=== PATIENT | female | born 1950 | race Caucasian/White ===

== ENCOUNTER 2023-05-07 15:42 | Outpatient (CLI) | payer MEDICARE, SELFPAY ==
--- NOTE | 2023-05-07 | ECHO_ITS ---
Patient Info Name: Yuliya Harris Age: 73 years : 1950 Gender: Female Ht: 68 in Wt: 120 lbs BSA: 1.60 m2 HR: 81 bpm BP: 157 / 100 mmHg Heart Rhythm: Sinus Rhythm Technical Quality: Good Exam Date: 05/07/2023 4:05 PM Exam Location: Echo Lab Patient Status: Outpatient Admit Date: 05/07/2023 Staff Ordering Physician: ManjeetBelia PA-C [employer]atch Mixing Truck Driver: Cheyanne Levin RDCS Attending Provider: BlancheBelia PA-C Exam Type: CA echo doppler color flow Study Info Indications - CARDIAC MURMUR Complete two-dimensional, color flow and Doppler transthoracic echocardiogram is performed. Summary 1. Complete two-dimensional, color flow and Doppler transthoracic echocardiogram is performed. 2. Left ventricular chamber dimension is normal. 3. Left ventricular systolic function is normal, estimated at 60-65%. 4. There is mildly increased left ventricular wall thickness. 5. The left ventricular diastolic function is grade I diastolic dysfunction. 6. Right ventricular systolic function is normal. 7. Right atrial free wall invagination noted during systole on the apical four chamber views and subxiphoid views. 8. There is moderate aortic valve calcification. 9. There is mild to moderate aortic valve stenosis with a peak velocity of 228 cm/s, mean gradient of 14 mmHg, and aortic valve area of 1.3 cm2. 10. There is mild mitral valve regurgitation. 11. There is mild tricuspid valve regurgitation. 12. Estimated pulmonary arterial systolic pressure is 40 mmHg. 13. There is no pericardial effusion. Left Ventricle Left ventricular chamber dimension is normal. Left ventricular systolic function is normal, estimated at 60-65%. There is mildly increased left ventricular wall thickness. The left ventricular diastolic function is grade I diastolic dysfunction. Right Ventricle Right ventricular chamber dimension is normal. Right ventricular systolic function is normal. Left Atria Left atrial chamber dimension is normal. Right Atria Right atrial free wall invagination noted during systole on the apical four chamber views and subxiphoid views. Right atrial chamber dimension is normal. Atrial Septum Intact interatrial septum visualized by color flow imaging. Aortic Valve The aortic valve is probable trileaflet. There is mild to moderate aortic valve stenosis with a peak velocity of 228 cm/s, mean gradient of 14 mmHg, and aortic valve area of 1.3 cm2. There is no aortic valve regurgitation. There is moderate aortic valve calcification. Pulmonic Valve The pulmonic valve is not well visualized. Mitral Valve There is mild mitral valve regurgitation. Tricuspid Valve There is mild tricuspid valve regurgitation. Estimated pulmonary arterial systolic pressure is 40 mmHg. Pericardium/Pleural There is no pericardial effusion. Inferior Vena Cava Dilated inferior vena cava with <50% collapse upon inspiration consistent with elevated right atrial pressure, 15 mmHg. Aorta The aortic root size at the sinus of Valsalva is normal. Left Ventricular Outflow Tract Name Value Normal LVOT 2D LVOT Diameter 2.2 cm LVOT Doppler LVOT Peak Gradient 2 mmHg LVOT Mean Gradient 1 mmHg
== END 2023-05-07 15:43 | disposition home or self-care (01) ==
LOC: ANHCARD 15:50
PROVIDERS: PCP Physician Assistant; Visit Provider Physician Assistant
DX: R93.1 Abnormal findings on diagnostic imaging of heart and coronary circulation (principal); I70.0 Atherosclerosis of aorta; I35.0 Nonrheumatic aortic (valve) stenosis; I34.0 Nonrheumatic mitral (valve) insufficiency; I07.1 Rheumatic tricuspid insufficiency
CPT/HCPCS: 93306

== ENCOUNTER 2023-05-10 08:21 | Outpatient (CLI) | payer MEDICARE, SELFPAY ==
--- NOTE | ~2023-05-10 | US_ITS ---
EXAMINATION: US carotid duplex BI DATE: 05/10/2023 09:40 INDICATION: Carotid atherosclerosis on prior CT. Nicotine dependence. Cardiac murmur. TECHNIQUE: Grayscale, color Doppler, and pulsed Doppler images of the cervical carotid arteries were obtained. The degree of vessel stenosis is placed in one of the following categories: normal, <50%, 5 0-69%, >=70% but less than near-occlusion, near-occlusion, or total occlusion. Note that percent sten osis relative to normal distal artery lumen diameter is indirectly measured from velocity measurement s as described by Chance, et al. Radiology 2003; 229:340-346. COMPARISON: None. FINDINGS: RIGHT: The right common carotid artery (CCA) peak systolic velocity (PSV) is 55 cm/s. The right internal car otid artery (ICA) PSV is 56 cm/s. The right ICA end-diastolic velocity (EDV) is 16 cm/s. The right IC A/CCA PSV ratio is 1.0. Grayscale and color Doppler images yield an estimate of <50% diameter reducti on from plaque in the ICA. The external carotid artery (ECA) PSV is 66 cm/s. There is antegrade flow in the right vertebral artery. LEFT: The left CCA PSV is 66 cm/s. The left ICA PSV is 43 cm/s. The left ICA EDV is 15 cm/s. The left ICA/C CA PSV ratio is 0.7. Grayscale and color Doppler images yield an estimate of <50% diameter reduction from plaque in the ICA. The ECA PSV is 49 cm/s. There is antegrade flow in the left vertebral artery. IMPRESSION: 1. <50% stenosis in the right internal carotid artery. 2. <50% stenosis in the left internal carotid artery. Reviewed, dictated and finalized at location A. STANT RESTAURANT GENERAL MANAGER
--- NOTE | ~2023-05-10 | US_ITS ---
EXAMINATION: US aorta [facility] DATE: 05/10/2023 09:39 INDICATION: Nicotine dependence. Cardiac murmur. Atherosclerotic aorta. TECHNIQUE: Grayscale, color Doppler, and pulsed Doppler images of the aorta and common iliac arteries were obtained. COMPARISON: None. FINDINGS: The proximal aorta measures 3.1 cm. The mid aorta measures 1.7 cm. The distal aorta measures 1.7 cm. The right common iliac artery measures 0.8 cm. The left common iliac artery measures 0.8 cm. Scattere d echogenic and shadowing atherosclerotic calcifications along the abdominal aorta and visualized por tions of the common iliac arteries. IMPRESSION: 1. Normal caliber atherosclerotic abdominal aorta. Reviewed, dictated and finalized at location A. ICAL ENGINEER
--- NOTE | ~2023-05-10 | CT_ITS ---
EXAMINATION: CT lung screening DATE: 05/10/2023 08:45 INDICATION: Personal history of nicotine dependence, current smoker with 59 pack year history TECHNIQUE: Computed tomography (CT) of the chest was performed without intravenous contrast. The dose -length product (DLP) was 63.13 mGy-cm. Automated exposure control and iterative reconstruction techn [employer] were employed. COMPARISON: None FINDINGS: There is mild emphysema. No suspicious pulmonary nodules are identified. The lungs are free of focal airspace opacities. No pleural effusion or pneumothorax. No pathologically enlarged thoraci c lymph nodes are identified. The heart size is normal. Calcified coronary artery atherosclerosis is noted. There is a small pericardial effusion. There are bilateral breast implants with collapse of th e right implant. There is a chronic-appearing burst fracture of L1. There is moderate thoracic spondy losis. There is a healed posterior fracture of the right ninth rib. IMPRESSION: 1. Lung-RADS category 1: Negative. Continue annual screening with noncontrast low-dose chest CT in 12 months. Reviewed, dictated and finalized at location B. R TAKERS SUPERVISOR IMPRESSION: 1. Lung-RADS category 1: Negative. Continue annual screening with noncontrast l ow-dose chest CT in 12 months.
== END 2023-05-10 08:22 | disposition home or self-care (01) ==
PROVIDERS: PCP Physician Assistant; Visit Provider Physician Assistant
DX: R01.1 Cardiac murmur, unspecified (principal); Z87.891 Personal history of nicotine dependence; I65.23 Occlusion and stenosis of bilateral carotid arteries
CPT/HCPCS: 71271; 76706; 93880

== ENCOUNTER 2024-08-07 17:05 | Outpatient (CLI) | payer MEDICARE, SELFPAY ==
--- NOTE | ~2024-08-07 | XR_ITS ---
HISTORY: TBP;LBP COMPARISON: None. TECHNIQUE: 3 view lumbar spine. FINDINGS: Lumbar vertebral bodies are normally aligned. There are 5 non-rib bearing lumbar vertebral bodies. Compression fracture of vertebral body of L1 is identified with more than 50% loss of the vertebral b tracy heights. Indeterminate acuity. Degenerative disease is otherwise detected with osteophyte formation and disc space narrowing and fac et arthropathy. Remaining disc spaces and vertebral body heights are otherwise well maintained. There are no lytic or sclerotic lesions. Densely calcified atherosclerotic disease within the abdominal aorta. IMPRESSION: Degenerative disease with compression fracture of L1 of indeterminate age Reviewed, dictated and finalized at location A. ATRIC NURSING ASSISTANT
--- NOTE | ~2024-08-07 | XR_ITS ---
HISTORY: TBP;LBP COMPARISON: None TECHNIQUE: 2 views of the thoracic spine are identified FINDINGS: No acute compression fracture is present. Bone mineralization is age-appropriate advanced. Moderate degenerative disease, with osteophyte formation and disc space narrowing. IMPRESSION: Degenerative disease without acute fracture. Reviewed, dictated and finalized at location A. LITY ENVIRONMENTAL TECHNICIAN
--- OUTSIDE RECORDS SUMMARY | 2024-08-07 17:11 | XMS_ITS | Data Portability ---
Author Organization [place] [facility] [employer], Main Office Address [address] [place] [address] Assessment No assessment recorded. Plan of Treatment Reminders Order Date Submit Date Provider Last Modified By Organization Details Last Modified Time Details Appointments None recorded. Lab HbA1c (hemoglobin A1c), blood 2022 023 SONYA Ravi, [address], [address], [place], [address], 3 09:32:51 CBC w/ auto diff 2022 023 SONYA Ravi, [address], [address], [place], [address], 3 09:32:50 hepatic function panel, serum 2022 023 [email or web address] [facility], [address], [address], [place], [address], 3 13:57:58 BMP, serum or plasma 2022 023 SONYA Ravi, [address], [address], [place], [address], 3 09:32:51 TSH + free T4, serum 2022 023 SONYA Ravi, [address], [address], [place], [address], 3 09:32:50 vitamin B12 + folate, serum or blood 2022 023 SONYA Ravi, [address], [address], [place], [address], 3 09:32:51 urinalysis complete, reflex culture 2022 [place] [facility], [address], [address], [place], [address], 3 09:32:50 lipid panel, serum 2022 [place] [facility], [address], [address], [place], [address], 3 09:32:51 Referral None recorded. Procedures None recorded. Surgeries None recorded. Imaging LDCT, chest, for lung cancer screening [address] (Imaging), [address] [facility] [address], [place], [address], 3 16:05:37 US, abdominal aorta [address] (Im[address]), [address], [place], [address], 4 15:17:25 US, echocardiog kirby, transthorac ic, complete, w/ color flow 2022 023 [facility] (Cardiology & Emg), [address], [place], [address], 3 15:50:29 US, duplex, carotid artery [address] (Imaging), [address], [place], [address], 3 16:05:37 Medication Orders None recorded. Patient TargetsNo targets recorded. Patient InstructionsNo instructions recorded. Reason for Referral None Reported. Results Created Date Observation Date Name Description Value Unit Range Abnormal Flag Note LastModifiedBy Organization Detail LastModifiedTime 05/13/20 23 05/10/2023 US, duple x, carot id arter y No observ ation record ed. [address] (Cardiology & Emg) [address] [facility] [address], [place], [address], 07/09/2023 12:34:52 05/13/2005/10/2023 LDCT, chest , for lung cance r scree khai No observ ation record ed. [address] (Cardiology & Emg) [address] [facility] [address], [place], [address], 07/09/2023 12:34:53 05/16/2005/07/2023 US, echoc ardio gram, trans thora cic, compl ete, w/ color flow No observ ation record ed. [place] [address] [facility] [address] [facility], [place], [address], 07/09/2023 12:34:53 Result Notes None recorded. Problems Name Problem SNOMED Code Status Onset Date Resolution Date Notes Provider Name and Address Organization Details Recorded Time Heart murmur 07868775 Active 2022 CORRY Ahumada [address], [address], [place], [address], [employer] 3 11:56:34 Hyperlipidemia 96992253 Active 2022 CORRY Ahumada [address], [address], [place], [address], [employer] 3 11:56:42 Benign essential hypertension 9185794 Active 2022 CORRY Ahumada [address], [address], [place], [address], [employer] 3 11:56:45 Smoker 65436503 Active 2022 CORRY Ahumada [address], [address], [place], [address], [employer] 3 11:57:49 Blood glucose outside reference range 247667934 Active 2022 CORRY Ahumada [address], [address], [place], [address], [facility] [employer] [facility] [employer] [facility] 3 11:58:47 Nicotine dependence 35612781 Active 2022 Viviana Duenas, RMA null, [facility] [employer] [facility] 3 09:43:36 Generalized anxiety disorder 19780760 Active 2022 CORRY Ahumada [address], [address], [place], [address], [facility] [employer] [facility] 3 15:24:01 Problem Notes None recorded. Procedures Surgical History Date Name Laterality Status Provider Name and Address Organization Details Recorded Time appendectomy completed Rimma Leal RN [facility] [employer] [facility] 04/05/2023 10:44:27 delivery completed Rimma Leal RN [facility] [employer] [facility] 04/05/2023 10:44:39 Imaging Results Imaging Date Name Status LastModified by Organiz ation Details LastModified Time 05/10/2023 US, duplex, carotid artery completed [address] (Cardiology & Emg) [address] [place] [address], [address], 07/09/2023 12:34:52 05/10/2023 LDCT, chest, for lung cancer screening completed [address] (Cardiology & Emg) [address] [place] [address], [address], 07/09/2023 12:34:53 05/07/2023 US, echocardiogram , transthoracic, complete, w/ color flow completed [address], [address], 07/09/2023 12:34:53 Procedure Notes None recorded. Medical Equipment None Reported. Allergies No known drug allergies Medications Name Sig Start Date Stop Date Status Note LastModified by Organization Details LastModified Time amlodipine 5 mg tablet Take 1 tablet every day by oral route. active Not Available Not Available No t Available sertraline 25 mg tablet TAKE 1 TABLET BY MOUTH EVERY DAY 06/26 completed Not Available Not Available Not Available sertraline 50 mg tablet TAKE 1 TABLET BY MOUTH EVERY DAY active Not Available Not Available No t Available rosuvastatin 5 mg tablet TAKE 1 TABLET BY MOUTH EVERY DAY active Not Available Not Available No t Available Vitals Date Recorded Body height Body weight Body temperature Heart rate Oxygen saturation Oxygen saturation in Arterial blood by Pulse oximetry Systolic blood pressure Diastolic blood pressure Provider Name and Address Organization Details Last Updated DateTime 172.72 cm 11274.1 6 g 97.3 [degF] 84 /min 98 % 98 % 112 mm[Hg] 70 mm[Hg] Rimma Leal RN [facility] [employer] 11:12:27 Date Recorded Body mass index (BMI) Provider Name and Address Organization Details Last Updated DateTime 04/05/2023 16.7 kg/m2 CORRY Ahumada [address] [facility] [address], [place], [address], [employer] 04/05/2023 11:24:57 Social History Question Answer Notes LastModified by Organizat ion Details LastModified Time Tobacco Smoking Status Current Some Day Smoker Rimma Leal RN null, [employer] 04/05/2023 11:13:26 What Is Your Level Of Alcohol Consumption? None [email or web address] Information not available 04/05/2023 What Is Your Level Of Caffeine Consumption? Moderate [email or web address] Information not available 04/05/2023 In The 14 Days Before Symptom Onset, Have You Had Close Contact With A Laboratory-confirm ed COVID-19 While That Case Was Ill? No [email or web address] Information n ot available 04/05/2023 In The 14 Days Before Symptom Onset, Have You Had Close Contact With A Person Who Is Under Investigation For COVID-19 While That Person Was Ill? No [email or web address] Information not available 04/05/2023 Are You Currently Employed? No [email or web address] Information not available 04/05/2023 What Type Of Diet Are You Following? REGULAR [email or web address] Information n ot available 04/05/2023 How Many Children Do You Have? 2 [email or web address] Information not available 04/05/2023 What Is Your Relationship Status? Information not available 04/05/2023 Do You Use Your Seat Belt Or Car Seat Routinely? Yes [email or web address] Information not available 04/05/2023 Do You Have Smoke And Carbon Monoxide Detectors In Your Home? Yes [email or web address] Information not available 04/05/2023 At What Age Did You Start Smoking Tobacco? 14 [email or web address] Information not available 04/05/2023 Do You Feel Stressed (tense, Restless, Nervous, Or Anxious, Or Unable To Sleep At Night)? [id number] [email or web address] Information not available 04/05/2023 Do You Use Any Illicit Or Recreational Drugs? No [email or web address] Information not available 04/05/2023 Do You Use Sunscreen Routinely? Yes [email or web address] Information not available 04/05/2023 Have You Recently Traveled Abroad? No [email or web address] Information not available 04/05/2023 Do You Have Any Dietary Restrictions? No [email or web address] Information not available 04/05/2023 Sex: Unknown Functional Status Question Answer Note LastModified by [employer] ion Details LastModified Time What is your exercise level? Occasional [email or web address] Information not available 04/05/2023 Mental Status None recorded. Family History Nothing Reported. Medical History No medical history recorded. Gynecological HistoryNo gynecological history recorded. Obstetrics History GPAL:G 0 P 0 0 0 0 Past Encounters Encounter ID Performer Location Encounter Start Date Encounter Closed Date Diagnosis/Indication Diagnosis SNOMED-CT Code Diagnosis ICD10 Code Diagnosis Note [id number] CORRY Ahumada [facility] [place] [address] [place] [address] 04/05/2023 10:41:24 04/05/2023 11:59:39 Heart murmur 19069678 R01.1 Check complete echo doppler with murmur noted on exam and check u/s duplex carotid arteries. Hyperlipidemia 26872079 E78.5 on crestor 5mg daily and due for fasting lipids Benign ess ential hypertension 7548892 I10 very stable on amlodipine 5mg daily. Smoker 64376241 F17.200 send for LDCT screening of chest and U/S AA. Long-term drug therapy 096022736 Z79.899 all routine screening labs ordered. Blood gluc ose outside reference range 156248269 R73.09 screening a1c ordered. Health Concerns Section Related Observation LastModified by Organization Detai ls LastModified Time None Recorded Concern Status LastModified by Organization Details LastModified Time None Recorded Advance Directives Directive None Recorded Payers Encounter Date Sequence Insurance Name Policy Number Policy Choi Covered Member ID Choi Member ID Guarantor Name 04/05/2023 1 [facility] (MEDICARE REPLACEMENT/A DVANTAGE - PPO) [id number] Yuliya Harris [id number] Yuliya Harris Notes Date Note Type Note Provider Name and Address Organization Details Recorded Time 3 text/htm l Generic HPI TemplateReported bypatient.Notes:pt also hx of smoking. family would like her cognition evaluation.HyperlipidemiaRep orted bypatient.Notes:stable on medsHypertensionReported bypatient.Notes:stable on meds new pt appt CORRY Ahumada [address] [facility] [address], [place], [address], [place] [facility] [employer] 04/30/2023 21:11:28 OBGyn Episode No OBEpisode recorded.
--- OUTSIDE RECORDS SUMMARY | 2024-08-07 17:11 | XMS_ITS | Continuity of Care Document ---
Author Organization [id number] - [facility] Address [place] [id number] Phone Care Team Providers Care Portal Developer Name Role Phone Milan Wallace Unavailable Unavailable Allergies, Adverse Reactions, Alerts Substance Reaction Status Criticality No Known Allergies Active No Inform ation Medications Medication Instructions Dosage Effective Dates (start - stop) Status Comments tramadol 50 mg tablet take 1 tablet by oral route every 6 hours as needed 50 MG - Active Augmentin 875 mg-125 mg tablet take 1 tablet by oral route every 12 hours - No Longer Active Procedures Procedure Date OFFICE/OUTPT EM EST DETAILED/MODERATE 25 MINS COMPLETE CBC W/AUTO DIFF WBC COLLECTION VENOUS BLOOD VENIPUNCTURE Mar PROTHROMBIN TIME COLLECTION VENOUS BLOOD VENIPUNCTURE October OFFICE/OUTPT EM EST DETAILED/MODERATE 25 MINS URINALYSIS DIP STICK/TABLET RGNT AUTO W/ O MICRO COMPLETE CBC W/AUTO DIFF WBC COLLECTION VENOUS BLOOD VENIPUNCTURE Sep OFFICE/OUTPT EM EST EXP PROB FOCUS/LOW 1 5 MINS IMMUNIZATION ADMIN SUBQ/IM 1 VACCINE Mar TD TOXOIDS ADSORBED PRSRV FR 7 YR/> IM S OFFICE/OUTPT EM EST DETAILED/MODERATE 25 MINS OFFICE/OUTPT EM NEW DETAILED/LOW 30 MINS OFFICE/OUTPT EM EST EXP PROB FOCUS/LOW 1 5 MINS OFFICE/OUTPT EM EST DETAILED/MODERATE 25 MINS URINALYSIS DIP STICK/TABLET RGNT AUTO W/ O MICRO COMPLETE CBC W/AUTO DIFF WBC COLLECTION VENOUS BLOOD VENIPUNCTURE May ELECTROCARDIOGRAM COMPLETE W/ PHYS INTER P & REPORT OFFICE/OUTPT EM EST EXP PROB FOCUS/LOW 1 5 MINS COLLECTION VENOUS BLOOD VENIPUNCTURE Nov COLLECTION VENOUS BLOOD VENIPUNCTURE Jul PROTHROMBIN TIME COMPLETE CBC W/AUTO DIFF WBC COLLECTION VENOUS BLOOD VENIPUNCTURE Mar URINALYSIS DIP STICK/TABLET RGNT AUTO W/ O MICRO Influenza vacc, s/v, ? 2 yrs of age, IM (fluvirin) Admin influenza virus vaccine Medicare O OFFICE/OUTPT EM EST DETAILED/MODERATE 25 MINS OFFICE/OUTPT EM EST DETAILED/MODERATE 25 MINS ELECTROCARDIOGRAM COMPLETE W/ PHYS INTER P & REPORT COLLECTION VENOUS BLOOD VENIPUNCTURE Aug PROFILE LIPID COMPREHENSIVE LAB PANEL OFFICE/OUTPATIENT VISIT, EST BEHAV CHNG SMOKING 3-10 MIN CBC W DIFF/PLATLETS URINALYSIS ROUTINE VENIPUNCTURE OFFICE/OUTPATIENT VISIT, EST OFFICE/OUTPATIENT VISIT, EST ROUTINE VENIPUNCTURE CBC W DIFF/PLATLETS OFFICE/OUTPATIENT VISIT, EST BEHAV CHNG SMOKING 3-10 MIN ROUTINE VENIPUNCTURE COMPREHENSIVE LAB PANEL CBC W DIFF/PLATLETS URINALYSIS PROFILE LIPID OFFICE/OUTPATIENT VISIT, EST ROUTINE VENIPUNCTURE BASIC METABOLIC PANEL BEHAV CHNG SMOKING 3-10 MIN Results Test Name Date and Time Measure Units Reference Range Abnormal Flag Status Comments Panel Description: BASIC METABOLIC PANEL Final GLUCOSE 2016 06:46:0 0 88 mg/dL 65-99 N Final Fasting refere nce interval UREA NITROGEN (BUN) 2016 06:46:0 0 9 mg/dL 7-25 N Final CREATININE 2016 06:46:0 0 0.78 mg/dL 0.50-0.99 N Final For patients > 49 years of age, the reference limitfor Creatinine is approximately 13% higher for peopleidentified as -Armenian. eGFR NON-AFR. HAITIAN 2016 06:46:0 0 78 mL/min/ 1.73m2 > OR = 60 N Final eGFR 2016 06:46:0 0 91 mL/min/ 1.73m2 > OR = 60 N Final BUN/CREATININ E RATIO 2016 06:46:0 0 NOT APPLICABLE (calc) 6- Final SODIUM 2016 06:46:0 0 137 mmol/L 135-146 N Final POTASSIUM 2016 06:46:0 0 5.4 mmol/L 3.5-5.3 H Final CHLORIDE 2016 06:46:0 0 103 mmol/L 98-110 N Final CARBON DIOXIDE 2016 06:46:0 0 29 mmol/L 20-31 N Final CALCIUM 2016 06:46:0 0 9.7 mg/dL 8.6-10.4 N Final Advance Directives Directive Yes / No Effective Date File Name No Information Encounters Encounter Description Practice Location Reason(s) For Visit Diagnoses Date Provider Providers Copied on Encounter OFFICE/OUTPT EM EST DETAILED/MOD ERATE 25 MINS [id number] - [facility], [place], [place], [id number] , [place] [phone] [facility] [place] [facility] multiple problems (chief complaint) Age-related osteoporosis without current pathological fractureEssen tial hypertensionE cchymosisHype rkalemia 7 Rodrigo Yates. [address], [place], [place], [id number]. tel:[phone] Referring Provider: Milan Reyes, [address], [place], [address] . [phone], [id number] , tel: [phone] [facility] Essential (primary) hypertension 7 Rodrigo Yates. [address] [place] [address], [id number]. tel: [phone] Referring Provider: Milanwendy Wallace Amy, [address] [facility] [address], [place], [address] . tel:[phone] OFFICE/OUTPT EM EST DETAILED/MOD ERATE [address], [id number] , tel: [phone] [facility] multiple problems (chief complaint) EcchymosisEss ential (primary) hypertensionA ge-related osteoporosis without current pathological fractureHyper potassemiaBod y mass index (BMI) 20.0-20.9, adult Sep- 7 Rodrigo Yates. [address] [facility] [address], [id number]. tel: [phone] Referring Provider: Milanwendy Wallace Amy, [address] [facility] [address], [place], [address] . tel:[phone] OFFICE/OUTPT EM EST EXP PROB FOCUS/LOW [address], [id number] , tel: [phone] [facility] cat bite (chief complaint) Cat bite of right lower leg with infection, initial encounter ^ 6 Atilio Lomas. [address], [facility] [address], [id number]. tel: [phone] Referring Provider: Cesilia Trimble , [address], [place], [address] . tel:[phone] OFFICE/OUTPT EM EST DETAILED/MOD ERATE [address], [id number] , tel:[phone] [facility] Musculoskeleta l pain (chief complaint) Hip pain, right October- 6 Atilio Cesilia. [address], [address], [place], [place], [id number]. tel: [phone] Referring Provider: Cesiliadevika Trimble , [address], [place], [address] . tel:[phone] OFFICE/OUTPT EM NEW DETAILED/LOW [address], [id number] , tel:[phone] [facility] Right sided abd pain (chief complaint) Chest wall pain Sep- 6 Amanda Singh. [address], [place] [address], [id number]. tel: [phone] Referring Provider: Milan Reyes, [address], [place], [address] . tel:[phone] OFFICE/OUTPT EM EST EXP PROB FOCUS/LOW [address], [id number] , [place] tel: [phone] [facility] multiple problems (chief complaint) Right sided abdominal painEssential hypertension, hypertension with unspecified goalHypertens ismael heart disease without congestive heart failure 6 Rodrigo Yates. [address], [place], [place], [address]. tel: [phone] Referring Provider: Milan Reyes, [address], [place], [address] . tel:[phone] OFFICE/OUTPT EM EST DETAILED/MOD ERATE [address], [id number] , tel:[phone] [facility] multiple problems (chief complaint) Family history of ischemic heart diseaseEssent ial hypertensionO steoporosisFH : ADHD (attention deficit hyperactivity disorder) 5 Rodrigo Yates. [address] [place] [address], [place], [address]. tel: [phone] Referring Provider: Milan Reyes, [address], [place], [address] . tel:[phone] OFFICE/OUTPT EM EST EXP PROB FOCUS/LOW [address], [id number] , tel:[phone] [facility] multiple problems (chief complaint) HypertensionO steoporosisSe rum potassium elevatedTobac co use disorder 5 Rodrigo Yates. [address], [place], [place], [id number]. tel:[phone] Referring Provider: Milan Reyes, [address], [place], [address] . tel:[phone], [id number] , tel: [phone] [facility] Serum potassium elevated 5 Rodrigo Yates. [address], [place], [place], [address]. tel: [phone] Referring Provider: Milan Reyes, [address], [place], [address] . tel:[phone] OFFICE/OUTPT EM EST DETAILED/MOD ERATE [address], [id number] , tel:[phone] [facility] Multiple Problems (chief complaint) EcchymosisHyp ertensionHCVD (hypertensive cardiovascula r disease)Flu vaccine need 4 Rodrigo Yates. [address], [place], [place], [id number]. tel: [phone] Referring Provider: Milan Reyes, [address], [place], [address] . tel:[phone] OFFICE/OUTPT EM EST DETAILED/MOD ERATE [address], [id number] , tel: [phone] [facility] multiple problems (chief complaint) HCVD (hypertensive cardiovascula r disease)Other dyspnea and respiratory abnormalityFa jason history of ischemic heart disease 4 Rodrigo Yates. [address], [place], [place], [address]. tel: [phone] Referring Provider: Milan Reyes, [address], [place], [address] . tel:[phone], [id number] , tel: [phone] [facility] No Information 3 Rodrigo Yates. [address] [place] [address], [address]. tel: [phone] Referring Provider: Milan Reyes, [address], [place], [address] . tel:[phone] OFFICE/OUTPA TIENT VISIT, EST [address], [id number] , tel: [phone] [facility] exam (chief complaint) HCVD (hypertensive cardiovascula r disease)Osteo porosisVisit for preventive health examinationTo bacco use disorder 3 Rodrigo Yates. [address] [place] [address], [address]. tel: [phone] Referring Provider: Milan Reyes, [address], [place], [address] . tel:[phone] OFFICE/OUTPA TIENT VISIT, EST [address], [id number] , tel: [phone] [facility] No Information 2 Osmansena Yates. [address] [place] [address], [address]. tel: [phone] Referring Provider: Milan Reyes, [address], [place], [address] . tel:[phone] OFFICE/OUTPA TIENT VISIT, EST [address], [id number] , tel: [phone] [facility] No Information 2 Kelseyrafael Yates. [address] [place] [address], [place], [address]. tel: [phone] Referring Provider: Milan Reyes, [address], [place], [address] . tel:[phone] OFFICE/OUTPA TIENT VISIT, EST [address], [id number] , tel: [phone] [facility] No Information 2 Rodrigo Yates. [address] [place] [address], [address]. tel:[phone] Referring Provider: Milan Reyes, [address], [place], [address] . tel:[phone] OFFICE/OUTPA TIENT VISIT, EST [address], [id number] , tel: [phone] [facility] No Information 1 Osmansena Yates. [address], [place], [place], [address]. tel:[phone] Referring Provider: Milan Reyes, [address], [place], [address] . tel:[phone] Family History Family Member Type Diagnosis Age At Onset Mother Problem (finding) CABG Problem (finding) Family history of atria l fibrillation Father Problem (finding) ASHD Mother Problem (finding) chronic obstructive tere g disease Father Problem (finding) CABG Immunizations Vaccine Date Status Comments Td (adult) preservative free administered Source: New Immunization Record Payers Payer name Insurance type Covered democrat ID Authoriza tion(s) Cign[employer] CI [id number] [place] [id number] Cigna CI [id number] [place] [id number] Social History Type Description Quantity Date Captured Comments Alcohol Use Details Caffeine Use Details coffee Tobacco Use Status Occasional cigarette smoker Smoking Status Current some day smoker Smoking Tobacco Use Details Cigarette: No Details Available Cigarette: No Details Available Sex Female Chief Complaint And Reason For Visit From encounter dated '04/23/2017 11:15'. multiple problems (chief complaint). Description: f/u visit..says ok..mostly not smoking..ecchymoses arms..no asa..needs lab Reason For Referral Reason For Referral No Information Plan Of Treatment Date Type Action Status Future Order: Radiology Order CT ABDOMEN & PELVIS W/CONTRAST ([id number]), Ordered on: Ordered Future Order: Radiology Order MY OCARDIAL SPECT MULTIPLE STUDIES ([id number]), Ordered on: Ordered Future Order: Lab Order Urinalys is ([id number]), Ordered on: Ordered Future Order: Lab Order CBC w/di ff ([id number]), Ordered on: Ordered Future Order: Lab Order Lipid Pa justin ([id number]), Ordered on: Ordered Future Order: Lab Order CMP ([id number]), Ordered on: Ordered History Of Present Illness Encounter Date Complaint History Of Prese nt Illness multiple problems f/u visit..say s ok..mostly not smoking..ecchymoses arms..no asa..needs lab multiple problems for exam..taki ng meds..easy bruising..occ asa..no smoking x 4 mos..up to date screening but so far refuses colonoscopy..gave her pamphlet, to call back cat bite Pt bitten by consuelo pruitt's cat 4 days ago. Musculoskeletal pain Onset: 2 we eks ago. It occurs constantly and is improving. Location: hip. The pain is sharp. Context: there is no injury. Right sided abd pain The symptom s began 2 weeks ago and generally lasts 10 Days. The symptoms are reported as being moderate. The symptoms occur daily. The location is right chest. Aggravating factors include exercise. Relieving factors include analgesics. She states the symptoms are acute and are of new onset. After heavy yard work she developed pleurtic chest pain on the right. No nausea or vomiting or any gi symptomsl; Went to ER where workup was negative and given percoset and indocin and a muscle relaxer which caused herto have diarrhea and stomach pain. She stopped all the medications and started on tylenol and is now back to baseline with no further pain. CY and US showed only small hepatic and renal cyst. Sheis a smoker and trying to stop. No cough or sob now. multiple problems R lower chest pain, then became R upper abd pain..cont pain..wakens from sleep..in er told lab and gb US neg..cont moderate R abd pain pm s multiple problems for exam..no s moking 3mos..feels ok but strong FH ashd and has concerns about herself considering risk factors..taking meds..up to date screening multiple problems f/u visit..umang ing meds..says ok..needs lab..needs stop smoking , though less now Multiple Problems for exam...nee ds stop smoking...set up for MMG...doesn't want colonoscopy says ok. multiple problems f/u, overdue.. tied up c her s illnesses..taking meds ok..trying to stop smoking..some MARTINEZ, tries to workout..concerned because strong FH ashd and father recent cardiac problems Functional Status Date Functional Assessmen t No Information Instructions Date Instruction Additional Infor sara No Information Assessments Type Assessment Date No Information Mental Status Date Cognitive Assessment Orientation - [place] ed to time, place, person, situation. Patient Care Teams Name Effective Dates (start - stop) Status Members No Information
--- OUTSIDE RECORDS SUMMARY | 2024-08-07 17:11 | XMS_ITS | Data Portability ---
Author Organization RUBI Cali SISharon Caceres Address [address] [place] [address] Assessment Encounter Date Assessment Date Assessment LastModified by Organization Details LastModified Time 02/14/2024 02/14/2024 Pt declines mammogram and colonoscopy screening. [email or web address] Not available 02/14/2024 16:16:53 Plan of Treatment Reminders Order Date Submit Date Provider Last Modified By Organization Details Last Modified Time Details Appointments ANY 15 2024 11:00A M CORRY Ahumada Not available Not available Not available Lab hepatic function panel, serum 2023 024 [facility], [address], [place], [address], 02/25/2024 12:07:25 BMP, serum or plasma 2023 024 [facility], [address], [place], [address], 02/25/2024 12:07:39 CBC w/ auto diff 2023 024 [facility], [address], [place], [address], 02/25/2024 12:07:43 TSH + free T4, serum 2023 024 [facility], [address], [place], [address], 02/25/2024 07:40:37 vitamin B12 + folate, serum or blood 2023 024 [facility], [address], [place], [address], 02/25/2024 12:07:54 lipid panel, serum 2023 [facility], [address], [place], [address], 02/25/2024 07:40:37 Referral None recorded. Procedures None recorded. Surgeries None recorded. Imaging None recorded. Medication Orders sertralin e 50 mg tablet 2023 [id number], [address], [place], [place], [id number], 02/14/2024 16:15:40 amlodipin e 5 mg tablet 2023 [facility] #[id number], [address], [place], [place], [id number], 02/14/2024 16:15:39 rosuvasta tin 5 mg tablet 2023 [facility] #[id number], [address], [place], [place], [id number], 02/14/2024 16:15:39 Patient TargetsNo targets recorded. Patient InstructionsNo instructions recorded. Reason for Referral None Reported. Results Created Date Observation Date Name Description Value Unit Range Abnormal Flag Note LastModifiedBy Organization Detail LastModifiedTime Result Notes None recorded. Problems Name Problem SNOMED Code Status Onset Date Resolution Date Notes Provider Name and Address Organization Details Recorded Time Hyperlipidemia 11134875 Active 2023 Viviana Duenas null, [place] [facility] 16:18:43 Smoker 83336212 Active 2023 Viviana [place] [facility] 16:18:51 Benign essential hypertension 4306051 Active 2023 Viviana Du[place] [facility] 16:18:59 Heart murmur 28774971 Active 2023 Viviana Duenas null, [place] - [facility] 16:19:07 Long-term drug therapy Active 2023 CORRY Ahumada Attn: Kaleigh allen,[address] [facility], [place], [address], [place] - [facility] 4 23:32:44 Depressive disorder 64656750 Active 2023 CORRY Ahumada Attn: Kaleigh allen,[address] [facility], [place], [address], [place] [facility] 4 23:32:54 Body mass index less than 20 328569725 Active 2023 CORRY Ahumada Attn: Kaleigh allen,[address] [facility], [place], [address], [place] [facility] 4 23:33:23 Problem Notes None recorded. Procedures Surgical History Date Name Laterality Status Provider Name and Address Organization Details Recorded Time section completed Viviana Duenas [place] - [facility] 09/02/2023 16:20:55 Appendectomy completed Viviana Duenas [facility] 09/02/2023 16:21:02 Imaging Results None recorded. Procedure Notes None recorded. Medical Equipment None Reported. Allergies No known drug allergies Medications Name Sig Start Date Stop Date Status Note LastModified by Organization Details LastModified Time amlodipine 5 mg tablet Take 1 tablet( s) every day by oral route. 2023 active Not Available Not Available Not Avai lable sertraline 25 mg tablet TAKE 1 TABLET BY MOUTH EVERY DAY 02/13 completed Not Available Not Available Not Available sertraline 50 mg tablet Take 1 tablet( s) every day by oral route. 2023 active Not Available Not Available Not Avai lable rosuvastatin 5 mg tablet one tab po daily. 2023 active Not Available Not Available Not Avai lable Vitals Date Recorded Body height Body mass index (BMI) Body weight Heart rate Oxygen saturation Oxygen saturation in Arterial blood by Pulse oximetry Systolic blood pressure Diastolic blood pressure Provider Name and Address Organization Details Last Updated DateTime 170.18 cm 18.8 kg/m2 18999.0 8 g 78 /min 99 % 99 % 142 mm[Hg] 68 mm[Hg] Meenakshi Childs MA [facility] 15:54:00 Date Recorded Respiratory rate Systolic blood pressure Diastolic blood pressure Provider Name and Address Organization Details Last Updated DateTime 02/14/2024 18 /min 134 mm[Hg] 80 mm[Hg] CORRY Ahumada Attn: Accounting, [address] [place], [address], [facility] 02/14/2024 16:11:49 Social History Question Answer Notes LastModified by Organizat ion Details LastModified Time Tobacco Smoking Status Current Every Day Smoker Viviana Goodman espino, [facility] 09/02/2023 16:20:20 What Is Your Level Of Alcohol Consumption? None Information not available 09/02/2023 What Is Your Level Of Caffeine Consumption? Moderate Information not available 09/02/2023 In The 14 Days Before Symptom Onset, Have You Had Close Contact With A Laboratory-confirm ed COVID-19 While That Case Was Ill? No [email or web address] Information n ot available 09/02/2023 In The 14 Days Before Symptom Onset, Have You Had Close Contact With A Person Who Is Under Investigation For COVID-19 While That Person Was Ill? No [email or web address] Information not available 09/02/2023 Have You Been To An Area Known To Be High Risk For COVID-19? No [email or web address] Information not available 09/02/2023 Are You Currently Employed? No [email or web address] Information not available 09/02/2023 What Type Of Diet Are You Following? REGULAR [email or web address] Information n ot available 09/02/2023 What Was The Date Of Your Most Recent Tobacco Screening? 02/14/2024 Information not available 02/14/2024 What Is Your Current Pack Years? 30ormorepacky ears [email or web address] Information not available 09/02/2023 What Is Your Relationship Status? [email or web address] Information not available 09/02/2023 Do You Use Your Seat Belt Or Car Seat Routinely? Yes [email or web address] Information not available 09/02/2023 Do You Have Smoke And Carbon Monoxide Detectors In Your Home? Yes [email or web address] Information not available 09/02/2023 At What Age Did You Start Smoking Tobacco? 14 [email or web address] Information not available 09/02/2023 Do You Use Any Illicit Or Recreational Drugs? No [email or web address] Information not available 09/02/2023 Do You Use Sunscreen Routinely? Yes [email or web address] Information not available 09/02/2023 Has Tobacco Cessation Counseling Been Provided? No Information not available 02/14/2024 How Many Years Have You Smoked Tobacco? 50 Information not available 02/14/2024 Do You Or Have You Ever Used Any Other Forms Of Tobacco Or Nicotine? No [email or web address] Information not available 09/02/2023 Sex: Female Functional Status Question Answer Note LastModified by Organization D etails LastModified Time What is your exercise level? None [email or web address] Information not available 09/02/2023 Mental Status None recorded. Family History Nothing Reported. Medical History Condition Response Have you had a colonoscopy in the last 1 0 years? N Gynecological HistoryNo gynecological history recorded. Obstetrics History GPAL:G 0 P 0 0 0 0 Past Encounters Encounter ID Performer Location Encounter Start Date Encounter Closed Date Diagnosis/Indication Diagnosis SNOMED-CT Code Diagnosis ICD10 Code Diagnosis Note [id number] CORRY Ahumada [facility] [address] [place] [address] 02/14/2024 15:45:11 02/14/2024 16:23:15 Benign essential hypertension 8269789 I10 Refill amlodipine 5 mg daily Hyperlipidemia 59557529 E78.5 Refill rosuvastat in 5 mg daily and check fasting lipid panel Long-term drug therapy 751118616 Z79.899 CBC, BMP, LFT, thyroid panel and vitamin B12 and folate labs are due Depressive disorder 5378 3204 F32.A Refill on sertraline 50 mg daily. Depression is controlled per patient report Smoker 44441616 F17.200 pt is down to 2-3 packs per week. Body mass index less than 20 221004230 Z68.1 BMI is 18.8 Health Concerns Section Related Observation LastModified by Organization Detai ls LastModified Time None Recorded Concern Status LastModified by Organization Details LastModified Time None Recorded Advance Directives Directive None Recorded Payers Encounter Date Sequence Insurance Name Policy Number Policy Choi Covered Member ID Choi Member ID Guarantor Name 02/14/2024 1 [facility] (MEDICARE REPLACEMENT/A DVANTAGE - PPO) [id number] Yuliyakaran Harris [id number] Yuliyakaran Harris Notes Date Note Type Note Provider Name and Address Organization Details Recorded Time 024 text/ht ml Anxiety/DepressionReported bypatient.Notes:Patient is taking sertraline 50 mg daily for depressionHyperlipidemiaReported bypatient.Notes:Patient is taking rosuvastatin 5 mg daily and is due for labsHypertensionReported bypatient.Notes:Patient is taking amlodipine 5 mg daily Patient does continue to still smoke cigarettes CORRY Ahumada Attn: Accounting, [address] [place], [address], [facility] 02/29/2024 23:33:42 OBGyn Episode No OBEpisode recorded.
--- OUTSIDE RECORDS SUMMARY | 2024-08-07 17:11 | XMS_ITS | Continuity of Care Document ---
Author Organization [id number] [place] [address] Address [address] [facility] [address] [place] [address] Phone Care Team Providers Care Client Relation Specialist Name Role Phone Mateo Fairchild MD Unavailable Unavailable Allergies, Adverse Reactions, Alerts Substance Reaction Status Criticality No Known allergies Medications Medication Instructions Dosage Effective Dates (start - stop) Status Comments METOPROLOL ER SUCCINATE 25MG TABS TAKE 1/2 TABLET BY MOUTH TWICE DAILY 25 MG - Active lisinopril 10 mg tablet TAKE 1 TABLET BY MOUTH EVERY DAY 10 MG - Active aspirin 81 mg tablet,delayed release take 1 tablet by oral route every day 81 MG - Active metoprolol succinate ER 25 mg tablet,extended release 24 hr take 1 tablet by oral route every day 25 MG - No Longer Active Procedures Procedure Date ELECTROCARDIOGRAM COMPLETE W/ PHYS INTER P & REPORT OFFICE/OUTPT EM EST EXP PROB FOCUS/LOW 1 5 MINS ELECTROCARDIOGRAM COMPLETE W/ PHYS INTER P & REPORT OFFICE/OUTPT EM EST EXP PROB FOCUS/LOW 1 5 MINS OFFICE/OUTPT EM EST EXP PROB FOCUS/LOW 1 5 MINS ELECTROCARDIOGRAM COMPLETE W/ PHYS INTER P & REPORT ELECTROCARDIOGRAM REPORT INTERP & REPORT ONLY OFFICE/OUTPT EM NEW DETAILED/LOW 30 MINS Ht muscle image spect mult Advance Directives Directive Yes / No Effective Date File Name No Information Encounters Encounter Description Practice Location Reason(s) For Visit Diagnoses Date Provider Providers Copied on Encounter [id number] - [facility], [address], [place], [place], [id number] , tel: [phone] [facility] No Information Mar- 7 Gurinder Galindo. [address], [address], [place], [id number]. 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 of CAD (chief complaint) Essential (primary) hypertensionToba project account manager abuseFamily history of coronary arteriosclerosis 7 Gurinder Galindo. [address], [place] [address], [place], [id number]. tel: [phone] Referring Provider: Mateo Conner, [address], [address] . tel:[phone] OFFICE/OUTPT EM EST EXP PROB FOCUS/LOW 15 MINS [id number] - [facility], [address], [place], [place], [id number] , tel: [phone] [facility] Hypertension (chief complaint)Tob acco abuse (chief complaint)Fam rina hx. of CAD (chief complaint) Essential (primary) hypertensionFami ly history of coronary arteriosclerosis Tobacco abuse 7 Gurinder Galindo. [address], [place] [address], [place], [id number]. tel:[phone] Referring Provider: Mateo Conner, [address], [place], [address] . tel:[phone] OFFICE/OUTPT EM EST EXP PROB FOCUS/LOW [address], [address], [place], [place], [id number] , tel: [phone] [facility] Hypertension (chief complaint)Tob acco abuse, (chief complaint)Fam rina Hx of cad (chief complaint) Essential hypertensionToba project account manager abuseFamily history of coronary arteriosclerosis Other chest pain 6 Gurinder Galindo. [address], [address], [place], [place], [id number]. tel:[phone] Referring Provider: Mateo Conner, [address], [place], [address] . tel:[phone], [address], [place], [place], [id number] , tel: [phone] [facility] No Information 6 Shannon Lovell. [address], [place], [place], [id number]. tel:[phone] Referring Provider: Nas Ortega , [address], [place], [address] . tel:[phone] OFFICE/OUTPT EM NEW DETAILED/LOW [address], [address], [place], [place], [id number] , [place] tel: [phone] [facility] Hypertension (chief complaint)Abn ormal thallium stress test (chief complaint)Lip ids (chief complaint)tob acco abuse (chief complaint) Abnormal nuclear stress testEssential hypertensionToba project account manager abuse 6 Gurinder Galindo. [address], [address], [place], [place], [address]. tel:[phone] Referring Provider: Milan Reyes, [address] [place] [address], [place], [address] . tel:[phone] [id number] - [facility], [address], [place], [place], [id number] , tel: [phone] [facility] his No Information 5 iLam Lizama. [address] [place] [address], [place], [place], [address]. tel:[phone] Referring Provider: Milan Reyes, [address] [place] [address], [place], [address] . tel:[phone] Family History Family Member Type Diagnosis Age At Onset No Information Payers Payer name Insurance type Covered libertarian ID Esperanza li(s) Asif SO [id number] Medicare Jose Ckevin [place] [id number] Social History Type Description Quantity Date Captured Comments Sex Female Smoking Status No Information Chief Complaint And Reason For Visit No Information Reason For Referral Reason For Referral No Information Plan Of Treatment Date Type Action Status Patient Education High Blood Pressure: Ca re Instructions completed History Of Present Illness Encounter Date Complaint History Of Prese nt Illness Hypertension well controlled Fam hx. of CAD no current cp, p nd, orthopnea or syncope COPD has cut down, bu t not quit tobacco Hypertension Has white coat s yndrome, initial bp was up, but after relaxing a minute was 140/80 Family hx. of CAD discussed diet , exercise smoking and meds. No current cp, pnd, orthopnea or syncope Tobacco abuse Has cut down to a few a day. again counselled and urged to quit. Tobacco abuse, Has cut way down , encouraged to try to quit Hypertension well controlled Family Hx of cad Coninuiong risk factor modification. No curent cp, pnd, orthopnea, syncope, or palpitations Lipids Most recent show chol-169. HDL-48, LDL-101, TG -98 tobacco abuse Has cut down to half pack daily, counselled on complete cessation Abnormal thallium stress test Hypertension Functional Status Date Functional Assessmen t No Information Instructions Date Instruction Additional Infor mation No Information Assessments Type Assessment Date No Information Patient Care Teams Name Effective Dates (start - stop) Status Members No Information
--- OUTSIDE RECORDS SUMMARY | 2024-08-07 17:11 | XMS_ITS | Data Portability ---
Author Organization [facility] OFFICE Address [address] [place] [address] [address] [place] [address] Care Team Providers Care Bearing Maker Name Role Phone DAYNE MCCORD Primary Care Provider [phone] Assessment No assessment recorded. Plan of Treatment Reminders Order Date Submit Date Provider Last Modified By Organization Details Last Modified Time Details Appointments None recorded. Lab None recorded. Referral None recorded. Procedures None recorded. Surgeries None recorded. Imaging XR, lumbar spine 2017 018 SONYA In-Office Order, Internal Use Only DO Not Attach Compendium DO Not Attach Compendium, Do Not Delete/merge, [id number] 05:00:53 Medication Orders cyclobenza balwinder 10 mg tablet 2017 018 [facility] #[id number], [address], [place], [id number], 8 15:54:30 hydrocodon e 7.5 mg-acetami nophen 325 mg tablet 2017 018 [facility] #[id number], [address], [place], [id number], 8 15:54:25 hydrocodon e 7.5 mg-acetami nophen 300 mg tablet 2017 018 [facility] #[id number], [address], [place], [id number], 9 15:25:39 Patient TargetsNo targets recorded. Patient Instructions Encounter Date Encounter Id Patient Instructions Last Modified By Organization Details Last Modified Time 10/16/2017 [id number] back care and preventing injuries: care instructions plindy Not available 10/16/2017 15:54:25 getting back to normal after low back pain: care instructions plindy Not available 10/16/2017 15:54:25 learning about relief for back pain plindy Not available 10/16/2017 15:54:25 The patient will start a course of medications and return in 1 month for follow up with xrays. plindy Not available 10/16/2017 15:54:52 11/12/2017 [id number] Continue with th e back brace and return for follow up in 1 month. plindy Not available 11/12/2017 15:36:35 Reason for Referral None Reported. Results Created Date Observation Date Name Description Value Unit Range Abnormal Flag Note LastModifiedBy Organization Detail LastModifiedTime 10/17/19 18 10/12/2017 XR, lumba r spine No observ ation record ed. plindy Not Available 2017 15:34:08 Result Notes None recorded. 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 8 12:24:20 Problem Notes None recorded. Procedures Surgical History Date Name Laterality Status Provider Name and Address Organization Details Recorded Time 3 Plastic Surgery completed Emma Shepherd [facility] 10/16/2017 11:18:[address] Emma [address] [facility] 10/16/2017 11:18:59 Imaging Results Imaging Date Name Status LastModified by Organiz ation Details LastModified Time 10/12/2017 XR, lumbar spine completed plindy Information not available 11/12/2017 15:34:08 Procedure Notes None recorded. Medical Equipment None Reported. Allergies No known drug allergies Medications Name Sig Start Date Stop Date Status Note LastModified by Organization Details LastModified Time cyclobenzaprine 10 mg tablet Take 1 tablet 3 times a day by oral route as needed. 2017 active Not Available Not Available Not Avai lable lisinopril 10 mg tablet TK 1 T PO QD active Not Available Not Available No t Available metoprolol succinate ER 25 mg tablet,extended release 24 hr TK 1 T PO QD active Not Available Not Available No t Available methylprednisolo ne 4 mg tablets in a dose pack Take 1 dose pk every day by oral route as directe d. active Not Available Not Available No t Available hydrocodone 7.5 mg-acetaminophen 300 mg tablet Take 1 tablet every 6 hours by oral route. 2018 active Not Available Not Available Not Avai lable Lortab 5 mg-325 mg tablet active Not Available Not Available No t Available Lortab 7.5 mg-325 mg tablet active Not Available Not Avail able Not Available Fluad 65yr up(PF)45 mcg(15 mcgx3)/0.5 mL intramuscular syringe ADM 0.5ML IM UTD active Not Available Not Available No t Available Vitals Date Recorded Body height Body mass index (BMI) Body weight Provider Name and Address Organization Details Last Updated DateTime 10/16/2017 172.72 cm 20.5 kg/m2 05164.97 alejandro Emma VELÁZQUEZ [facility] 10/16/2017 11:18:36 Date Recorded Body height Body mass index (BMI) Body weight Provider Name and Address Organization Details Last Updated DateTime 11/12/2017 172.72 cm 20.5 kg/m2 96607.97 alejandro Emma VELÁZQUEZ [facility] 11/12/2017 14:07:44 Date Recorded Body height Body mass index (BMI) Body weight Provider Name and Address Organization Details Last Updated DateTime 01/14/2019 172.72 cm 20.5 kg/m2 87016.97 alejandro VELÁZQUEZ [facility] 01/14/2019 11:55:02 Social History Question Answer Notes LastModified by Organizat ion Details LastModified Time Tobacco Smoking Status Current Some Day Smoker Emma espino [facility] 10/16/2017 11:18:53 What Is Your Level Of Alcohol Consumption? None Information not available 10/16/2017 Auto Related Injury? No Information not available 10/16/2017 Are You Blind Or Do You Have Difficulty Seeing? No Information not available 10/16/2017 Are You Currently Employed? Yes Information not available 10/16/2017 Are You Deaf Or Do You Have Serious Difficulty Hearing? No Information not available 10/16/2017 Education 2 Year College Informatio n not available 10/16/2017 Who Is Your Employer? 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 Right Information not available 10/16/2017 Last BP Reading? Dont Remember Information not available 10/16/2017 Marital Status Informatio n not available 10/16/2017 What Was The Date Of Your Most Recent Tobacco Screening? 01/14/2019 Information not available 01/21/2019 If Injured, Is Litigation Ongoing? No Information not available 10/16/2017 At What Age Did You Start Smoking Tobacco? 17 Information not available 10/16/2017 How Much Tobacco Do You Smoke? 1 PPW Information not available 10/16/2017 Work Related Injury? No Information not available 10/16/2017 Sex: Unknown Functional Status Question Answer Note LastModified by Organizat ion Details LastModified Time Do you have difficulty walking or climbing stairs? Yes Information not available 01/14/2019 Do you have difficulty doing errands alone? No Information not available 10/16/2017 Do you have difficulty dressing or bathing? Yes Information not available 10/16/2017 What is your exercise level? Moderate Information not available 10/16/2017 Mental Status Question Answer Note LastModified by Organization D etails LastModified Time Do you have difficulty concentrating, remembering or making decisions? No Information no t available 10/16/2017 Family History Relationship Description Onset Age of this Age Resolved Age Notes LastModified by Organization Details LastModified Time Father No current problems or disability sroe Not available 10/16 11:19:42 Mother No current problems or disability sroe Not available 10/16 11:19:42 Medical History Condition Response HIV or AIDS N Coronary Artery Disease N Gout N Dizziness or Fainting Spells N Kidney Stones N Nosebleeds or Sinus Trouble N Control Pills N Hernia N Depression N Blood Clots N Lung Disease N Nervous Trouble or Depression N Pacemaker N Frequent Sore Throat N Menstrual Periods (Date of Last) N Gallbladder Trouble or Gallstones N Trouble Hearing or Frequent Ear Infectio ns N Easy Bruising or Bleeding Y Trouble Seeing or Pain in the Eyes N Recent Change in Bowel Movements N Arthritis or Rheumatism N Anxiety Disorder N Blood in Urine N Stomach, Liver or Intestinal Trouble N Bloody Stools or Black Tarry Stools N Epilepsy, Fits, or Blackouts N Cancer N Stroke N Leg or Foot Ulcers N Swollen Glands in Neck, Armpits, or Groi n N Painful or Frequent Urination N Shortness of Breath N Irregular Vaginal Bleeding N Liver Disease N Rheumatoid Arthritis N Hay Fever or Asthma N Kidney Disease N Chronic Cough N Yellow Jaundice N Heart Problems N Frequent Headaches N Migraines N Thyroid Problems N Goiter N Anemia N Ulcers N Heart Attack (AL) N A Trick Joint N Diabetes N Bleeding Disorder N Blood Transfusions N Seizures/Epilepsy N Tuberculosis N Urinary Tract Infection N Peripheral Vascular Disease N Weakness, Paralysis N Pain or Pressure in Chest N Sleep Apnea N GERD/Reflux N Swelling of Ankles N Blood in Sputum N Hepatitis N Heart Disease N Pulmonary Embolism N Hypertension N Osteoporosis N Gynecological HistoryNo gynecological history recorded. Obstetrics History GPAL:G 0 P 0 0 0 0 Past Encounters Encounter ID Performer Location Encounter Start Date Encounter Closed Date Diagnosis/Indication Diagnosis SNOMED-CT Code Diagnosis ICD10 Code Diagnosis Note [id number] Elijah Santamaria MD [facility] [address] [place] [address], [address] [place] [address] 10/16/2017 10:53:57 10/16/2017 11:41:44 Low back pain 956688392 M54.5 Pathologic al fracture of vertebra 541630374 M48.56XA [id number] Elijah Santamaria MD [facility] [address] [place] [address], [address] [place] [address] 11/12/2017 13:31:30 11/12/2017 14:45:19 Low back pain 595364981 M54.5 Pathologic al fracture of vertebra 758721425 M48.56XD [id number] Ledy Gong [facility] [address], [address] [address] 01/19/2019 11:50:55 01/19/2019 11:59:04 [id number] Ledy Gong [facility] [address], [address] [address] 01/26/2019 12:15:17 01/26/2019 12:16:31 Health Concerns Section Related Observation LastModified by Organization Detai ls LastModified Time None Recorded Concern Status LastModified by Organization Details LastModified Time None Recorded Advance Directives Directive None Recorded Payers Encounter Date Sequence Insurance Name Policy Number Policy Choi Covered Member ID Choi Member ID Guarantor Name 10/16/2017 1 [place] Yuliya J Harris [id number] Yuliya Harris 10/16/2017 [facility] (MEDICARE [facility]) Yuliya J Harris [id number] Yuliya Harris 11/12/2017 1 [place] Yuliya J Harris [id number] Yuliya Harris 11/12/2017 [employer] (MEDICARE [employer]) Yuliya J Harris [id number] Yuliya Harris 01/19/2019 1 [place] Yuliya J Harris [id number] Yuliya Harris 01/19/2019 2 [employer] (MEDICARE SUPPLEMENT) Yuliya J Harris [id number] Yuliya Harris 01/26/2019 1 [place] Yuliya J Harris [id number] Yuliya Harris 01/26/2019 2 [employer] (MEDICARE SUPPLEMENT) Yuliya J Harris [id number] Yuliya Harris Notes Date Note Type Note Provider Name and Address Organization Details Recorded Time 10/16/2017 text/html L-spineReported bypatient.Location:p osterior Quality:aching; constant Severity:moderate Duration:date of onset: (October 12, 2017) Timing:acute Context:fall Alleviating Factors:lying down; rest Aggravating Factors:sitting; standing; walking; ROM; weightbearing Previous Surgery:none Prior Imaging:x ray ([facility]) Previous Injections:none Previous PT:none Work Related:no Working:noNotes:DATE OF SERVICE: 10/12/2017 1:20 PM CDT EXAM: XR Spine Lumbar Minimum 4 Views, XR Sacrum/Coccyx Minimum 2 Views HISTORY: Injury Back FINDINGS: Lumbar spine, 5 views: The bones are osteopenic. There is a compression fracture involving the superior endplate of L1 vertebral body. The vertebral body heights of the remaining lumbar spine are well-maintained. No subluxation. The facets remain in good alignment. The spinous processes are in good alignment. The SI joints are maintained. Vascular calcifications are present. Sacrococcygeal series, 3 views: There is good alignment of the sacrum and the coccyx. No fractures are noted. The bones are osteopenic. Extensive vascular calcifications are present. IMPRESSION: 1. Compression fracture of the superior endplate of L1 vertebral body. The proliferative changes involving the endplates suggest a chronic appearance to this compression fracture. However, this was not present on the patient's CT abdomen and pelvis of October 03, 2015. Clinical correlation is recommended. 2. Osteopenia. 3. The sacrococcygeal series appears within normal limits. Elijah Santamaria MD [address] [place] [address], [address], [address], [facility] 04/23/2018 16:34:29 11/12/2017 text/html Follow-UpReporte d bypatient.Are you working?not at all How are you feeling?same (LBP) Previous PT:none Previous Injections:none Change in symptoms:no Do you need a work excuse?no Do you need a prescription renewal?no Elijah Santamaria MD [address] [place] [address], [address], [place], [address], [facility] 09/08/2018 15:25:44 OBGyn Episode No OBEpisode recorded.
--- OUTSIDE RECORDS SUMMARY | 2024-08-07 17:12 | XMS_ITS | Data Portability ---
Author Organization [facility]_Unsigned Documents Address [address] [facility] [place] [address] Care Team Providers Care School Counselor Name Role Phone MILAN MCCORD Primary Care Provider Assessment No assessment recorded. Plan of Treatment Reminders Order Date Submit Date Provider Last Modified By Organization Details Last Modified Time Details Appointments None recorded. Lab CMP, serum or plasma 2019 020 [facility], [address] [place] [address], [address], 0 06:47:16 lipid panel, serum 2019 020 [facility], [address] [place] [address], [address], 0 06:47:15 CBC w/ auto diff 2019 020 [facility], [address] [place] [address], [address], [address], 0 14:21:37 urinalysis , dipstick 2019 020 [facility], [address] [place] [address], [address], [place], [address], 0 14:21:37 BMP, serum or plasma 2019 020 [facility], [address] [place] [address], [address], 0 09:23:29 lipid panel, serum 2019 [facility], [address] [place], [address], 0 09:23:28 Referral None recorded. Procedures None recorded. Surgeries None recorded. Imaging electrocar diogram 2019 020 [email or web address] [facility], [address], [place], [address], 0 08:53:07 US, echocardio gram, transthora cic, complete, w/ color flow 2019 020 SONYA [facility], [address], [address], [place], [address], 0 12:06:37 Medication Orders None recorded. Patient TargetsNo targets recorded. Patient Instructions Encounter Date Encounter Id Patient Instructions Last Modified By Organization Details Last Modified Time 08/18/2019 [id number] high cholesterol : care instructions [email or web address] Not available 08/18/2019 12:02:54 11/10/2019 [id number] deciding about using medicines to quit smoking sshiffman Not available 11/10/2019 11:36:51 Quitting Tobacco : Care Instructions sshiffman Not available 11/10/2019 11:36:52 high blood pressure: care instructions sshiffman Not available 11/10/2019 11:36:51 learning about high blood pressure sshiffman Not available 11/10/2019 11:36:51 advance care planning: care instructions sshiffman Not available 11/10/2019 14:21:37 A healthy lifestyle: care instructions sshiffman Not available 11/10/2019 14:21:37 preventing falls : care instructions sshiffman Not available 11/10/2019 14:21:37 COUNSELING & COORDINATION of CARE {{Yes No N/A}}: Increase Exercise {{Yes No N/A}}: Encourage Weight Loss {{Yes No N/A}}: Decrease Fat {{Yes No N/A}}: Diabetic Patient Counseling {{Yes No N/A}}: Smoking Cessation {{Yes No N/A}}: Decrease Alcohol {{Yes No N/A}}: Decrease Salt {{Yes No N/A}}: Increase Fiber {{Yes No N/A}}: Increase H20 {{Yes No N/A}}: Counseled patient regarding Lab/Dx/need for follow-up {{Yes No N/A}}: Discussed medications, side effects, & compliance {{Yes No N/A}}: Dental Care {{Yes No N/A}}: Eye Exam [email or web address] Not available 11/10/2019 11:19:42 02/16/2020 [id number] high blood pressure: care instructions [email or web address] Not available 02/17/2020 12:23:25 learning about high blood pressure [email or web address] Not available 02/17/2020 12:23:25 aortic valve stenosis: care instructions [email or web address] Not available 02/16/2020 12:02:38 05/10/2020 [id number] deciding about using medicines to quit smoking sshiffman Not available 05/10/2020 11:40:10 Quitting Tobacco : Care Instructions sshiffman Not available 05/10/2020 11:40:10 high blood pressure: care instructions sshiffman Not available 05/10/2020 11:40:10 learning about high blood pressure sshiffman Not available 05/10/2020 11:40:10 high cholesterol : care instructions sshiffman Not available 05/10/2020 11:40:10 Reason for Referral None Reported. Results Created Date Observation Date Name Description Value Unit Range Abnormal Flag Note LastModifiedBy Organization Detail LastModifiedTime 11/11/1911/11/2019 lipid panel , serum cholesterol, total 129 mg/dL <200 normal Not Available [facility] [address] [place], [address], 11/11/2019 06:47:15 11/11/1911/11/2019 lipid panel , serum HDL cholesterol 48 mg/dL > or = 50 low Not Available [facility] [address] [place], [address], 11/11/2019 06:47:15 11/11/19 20 11/11/2019 lipid panel , serum triglyceride s 98 mg/dL <150 normal Not Available [facility] [address] [place], [address], 11/11/2019 06:47:15 11/11/19 20 11/11/2019 lipid panel , serum LDL-choleste rol 63 mg/dL _(modesta c) normal Refer ence range : <100 Kortney able range <100 mg/dL for prima ry preve ntion ; <70 mg/dL for patie nts with CHD or diabe tic patie nts with > or = 2 CHD risk facto rs. LDL-C is now calcu lated using the Dorie n-Hop kins calcu annia n, which is a valid ated novel metho d provi ding sam r accur acy than the Fried anibal equat ion in the estim ation of LDL-C . Dorie brown SS et al. DAVINA. 2013; 310(1 9): 2061- 2068 (http ://ed ucati on.Qu estAdify. com/f aq/FA Q164) Not Available [facility] [address] [place], [address], 11/11/2019 06:47:15 11/11/19 20 11/11/2019 lipid panel , serum chol/HDLC ratio 2.7 (calc ) <5.0 normal Not Available [facility] [address] [place], [address], 11/11/2019 06:47:15 11/11/19 20 11/11/2019 lipid panel , serum non HDL cholesterol 81 mg/dL _(modesta c) <130 normal For patie nts with diabe collins plus 1 major ASCVD risk facto r, treat ing to a non-H DL-C goal of <100 mg/dL (LDL- C of <70 mg/dL ) is consi dered a thera peuti c optio n. Not Available [facility] [address] [place], [address], 11/11/2019 06:47:15 11/11/1911/11/2019 CMP, serum or plasm a glucose 75 mg/dL 65-99 normal Fasti ng refer ence inter dung Not Available [facility] [address] [place], [address], 11/11/2019 06:47:16 11/11/19 20 11/11/2019 CMP, serum or plasm a urea nitrogen (BUN) 15 mg/dL 7-25 normal Not Available [facility] [address] [place], [address], 11/11/2019 06:47:16 11/11/1911/11/2019 CMP, serum or plasm a creatinine 0.89 mg/dL 0.60-0 .93 normal For patie nts >49 years of age, the refer ence limit for Creat inine is appro ximat carlos manuel 13% highe r for peopl e ident ified as Afric an-Am asmita n. Not Available [facility] [address] [place], [address], 11/11/2019 06:47:16 11/11/1911/11/2019 CMP, serum or plasm a eGFR non-afr. bahraini 66 mL/mi n/1.7 3m2 > or = 60 normal Not Available [facility] [address] [place] [address], [address], 11/11/2019 06:47:16 11/11/1911/11/2019 CMP, serum or plasm a eGFR 76 mL/mi n/1.7 3m2 > or = 60 normal Not Available [facility] [address] [place] [address], [address], 11/11/2019 06:47:16 11/11/1911/11/2019 CMP, serum or plasm a BUN/creatini ne ratio NOT APPLIC ABLE (calc ) 6-22 Not Available [facility] [address] [place] [address], [address], 11/11/2019 06:47:16 11/11/1911/11/2019 CMP, serum or plasm a sodium 138 mmol/ L 135-14 6 normal Not Available [facility] [address] [place] [address], [address], 11/11/2019 06:47:16 11/11/1911/11/2019 CMP, serum or plasm a potassium 4.0 mmol/ L 3.5-5. 3 normal Not Available [facility] [address] [place] [address], [address], 11/11/2019 06:47:16 11/11/1911/11/2019 CMP, serum or plasm a chloride 102 mmol/ L 98-110 normal Not Available [facility] [address] [place] [address], [address], 11/11/2019 06:47:16 11/11/1911/11/2019 CMP, serum or plasm a carbon dioxide 32 mmol/ L 20-32 normal Not Available [facility] [address] [place] [address], [address], 11/11/2019 06:47:16 11/11/1911/11/2019 CMP, serum or plasm a calcium 10.1 mg/dL 8.6-10 .4 normal Not Available [facility] [address] [place] [address], [address], 11/11/2019 06:47:16 11/11/1911/11/2019 CMP, serum or plasm a protein, total 6.5 g/dL 6.1-8. 1 normal Not Available [facility] [address] [place] [address], [address], 11/11/2019 06:47:16 11/11/1911/11/2019 CMP, serum or plasm a albumin 4.4 g/dL 3.6-5. 1 normal Not Available [facility] [address] [place] [address], [address], 11/11/2019 06:47:16 11/11/1911/11/2019 CMP, serum or plasm a globulin 2.1 g/dL_ (calc ) 1.9-3. 7 normal Not Available [facility] [address] [place], [address], 11/11/2019 06:47:16 11/11/1911/11/2019 CMP, serum or plasm a albumin/glob ulin ratio 2.1 (calc ) 1.0-2. 5 normal Not Available [facility] [address] [place], [address], 11/11/2019 06:47:16 11/11/1911/11/2019 CMP, serum or plasm a bilirubin, total 0.6 mg/dL 0.2-1. 2 normal Not Available [facility] [address] [place] [address], [address], 11/11/2019 06:47:16 11/11/1911/11/2019 CMP, serum or plasm a alkaline phosphatase 39 U/L 37-153 normal Not Available [facility] [address] [place] [address], [address], 11/11/2019 06:47:16 11/11/1911/11/2019 CMP, serum or plasm a AST 11 U/L 10-35 normal Not Available [facility] [address] [place] [address], [address], 11/11/2019 06:47:16 11/11/1911/11/2019 CMP, serum or plasm a ALT 5 U/L 6-29 low NO COLLE CTION DATE RECEI FLIP. WE HAVE USED THE DATE THE SPECI MEN WAS RECEI FLIP BY THIS LABOR ATORY THE COLLE CTION DATE. IF THIS IS INCOR RECT, PLEAS E CONTA CT CLIEN T SERVI JEFFREY. PHONE NUMBE R: [phone] Not Available [facility] [address] [place] [address], [address], 11/11/2019 06:47:16 05/11/20 20 05/11/2020 lipid panel , serum cholesterol, total 134 mg/dL <200 normal Not Available [facility] [address] [place], [address], 05/11/2020 09:23:28 05/11/20 20 05/11/2020 lipid panel , serum HDL cholesterol 52 mg/dL > or = 50 normal Not Available [facility] [address] [place], [address], 05/11/2020 09:23:28 05/11/2005/11/2020 lipid panel , serum triglyceride s 91 mg/dL <150 normal Not Available [facility] [address] [place], [address], 05/11/2020 09:23:28 05/11/2005/11/2020 lipid panel , serum LDL-choleste rol 65 mg/dL _(modesta c) normal Refer ence range : <100 Kortney able range <100 mg/dL for prima ry preve ntion ; <70 mg/dL for patie nts with CHD or diabe tic patie nts with > or = 2 CHD risk facto rs. LDL-C is now calcu lated using the Dorie n-Hop kins calcu latalistair n, which is a valid ated novel metho d provi ding sam r accur acy than the Fried anibal equat ion in the estim ation of LDL-C . Dorie brown SS et al. DAVINA. 2013; 310(1 9): 2061- 2068 (http ://ed ucati on.Qu bryceDi TimeSight Systemss. com/f aq/FA G589) Not Available [facility] [address] [place], [address], 05/11/2020 09:23:28 05/11/2005/11/2020 lipid panel , serum chol/HDLC ratio 2.6 (calc ) <5.0 normal Not Available [facility] [address] [place], [address], 05/11/2020 09:23:28 05/11/2005/11/2020 lipid panel , serum non HDL cholesterol 82 mg/dL _(modesta c) <130 normal For patie nts with diabe collins plus 1 major ASCVD risk facto r, treat ing to a non-H DL-C goal of <100 mg/dL (LDL- C of <70 mg/dL ) is consi dered a thera peisai c optio n. Not Available [facility] [address] [place], [address], 05/11/2020 09:23:28 05/11/2005/11/2020 BMP, serum or plasm a glucose 83 mg/dL 65-99 normal Fasti ng refer ence inter dung Not Available [facility] [address] [place], [address], 05/11/2020 09:23:29 05/11/2005/11/2020 BMP, serum or plasm a urea nitrogen (BUN) 12 mg/dL 7-25 normal Not Available [facility] [address] [place], [address], 05/11/2020 09:23:29 05/11/2005/11/2020 BMP, serum or plasm a creatinine 0.84 mg/dL 0.60-0 .93 normal For patie nts >49 years of age, the refer ence limit for Creat inine is appro ximat carlos manuel 13% highe r for peopl e ident ified as Afric an-Am asmita n. Not Available [facility] [address] [place], [address], 05/11/2020 09:23:29 05/11/2005/11/2020 BMP, serum or plasm a eGFR non-afr. bahraini 70 mL/mi n/1.7 3m2 > or = 60 normal Not Available [facility] [address] [place], [address], 05/11/2020 09:23:29 05/11/2005/1105/11/2020 BMP, serum or plasm a eGFR 81 mL/mi n/1.7 3m2 > or = 60 normal Not Available [facility] [address] [place] [address], [address], 05/11/2020 09:23:29 05/11/20 20 05/11/2020 BMP, serum or plasm a BUN/creatini ne ratio NOT APPLIC ABLE (calc ) 6-22 Not Available [facility] [address] [place] [address], [address], 05/11/2020 09:23:29 05/11/20 20 05/11/2020 BMP, serum or plasm a sodium 137 mmol/ L 135-14 6 normal Not Available [facility] [address] [place] [address], [address], 05/11/2020 09:23:29 05/11/20 20 05/11/2020 BMP, serum or plasm a potassium 4.2 mmol/ L 3.5-5. 3 normal Not Available [facility] [address] [place] [address], [address], 05/11/2020 09:23:29 05/11/2005/11/2020 BMP, serum or plasm a chloride 102 mmol/ L 98-110 normal Not Available [facility] [address] [place] [address], [address], 05/11/2020 09:23:29 05/11/20 20 05/11/2020 BMP, serum or plasm a carbon dioxide 26 mmol/ L 20-32 normal Not Available [facility] [address] [place] [address], [address], 05/11/2020 09:23:29 05/11/2005/11/2020 BMP, serum or plasm a calcium 9.4 mg/dL 8.6-10 .4 normal NO COLLE CTION DATE RECEI FLIP. WE HAVE USED THE DATE THE SPECI MEN WAS RECEI FLIP BY THIS LABOR ATORY THE COLLE CTION DATE. IF THIS IS INCOR RECT, PLEAS E CONTA CT CLIEN T SERVI JEFFREY. PHONE NUMBE R: [phone] [phone] Not Available [facility] [address] [place], [address], 05/11/2020 09:23:29 11/10/1911/10/2019 CBC w/ auto diff WBC mL 4.1-10 .9 Not Available [facility] [address], [place], [address], 11/10/2019 12:40:01 11/10/1911/10/2019 CBC w/ auto diff lym mL 0.6-4. 1 Not Available [facility] [address], [place], [address], 11/10/2019 12:40:01 11/10/1911/10/2019 CBC w/ auto diff lym% % 10.0-5 8.5 Not Available [facility] [address], [place], [address], 11/10/2019 12:40:01 11/10/1911/10/2019 CBC w/ auto diff mid mL 0.0-1. 8 Not Available [address], [place], [address], 11/10/2019 12:40:01 11/10/1911/10/2019 CBC w/ auto diff mid% % 0.01-2 4.0 Not Available [facility] [address], [place], [address], 11/10/2019 12:40:01 11/10/1911/10/2019 CBC w/ auto diff gran mL 2.0-7. 8 Not Available [facility] [address], [place], [address], 11/10/2019 12:40:01 11/10/1911/10/2019 CBC w/ auto diff gran% % 37.0-9 2.0 Not Available [facility] [address], [place], [address], 11/10/2019 12:40:01 11/10/1911/10/2019 CBC w/ auto diff RBC mL 4.20-6 .3 Not Available [facility] [address], [place], [address], 11/10/2019 12:40:01 11/10/1911/10/2019 CBC w/ auto diff HGB g/dL 12.0-1 8.0 Not Available [address], [place], [address], 11/10/2019 12:40:01 11/10/1911/10/2019 CBC w/ auto diff HCT % 37.0-5 1.0 Not Available [address], [place], [address], 11/10/2019 12:40:01 11/10/1911/10/2019 CBC w/ auto diff MCV fL 80.0-9 7.0 Not Available [address], [place], [address], 11/10/2019 12:40:01 11/10/1911/10/2019 CBC w/ auto diff MCH pg 26.0-3 2.0 Not Available [facility] [address], [place], [address], 11/10/2019 12:40:01 11/10/1911/10/2019 CBC w/ auto diff MCHC g/dL 31.0-3 6.0 Not Available [facility] [address], [place], [address], 11/10/2019 12:40:01 11/10/1911/10/2019 CBC w/ auto diff RDW % 11.5-1 4.5 Not Available [address], [place], [address], 11/10/2019 12:40:01 11/10/1911/10/2019 CBC w/ auto diff plt K/uL 140-44 0 Not Available [address], [place], [address], 11/10/2019 12:40:01 11/10/1911/10/2019 CBC w/ auto diff MPV fL 0.0-99 .8 Not Available [address], [place], [address], 11/10/2019 12:40:01 11/10/1911/10/2019 CBC w/ auto diff pct % 0.190- 0.360 Not Available [address], [place], [address], 11/10/2019 12:40:01 11/10/1911/10/2019 CBC w/ auto diff pdw L 15.5-1 7.1 Not Available [address], [place], [address], 11/10/2019 12:40:01 11/10/1911/10/2019 urina lysis , dipst ick Unknown Analyte Yellow Not Available [address], [place], [address], 11/10/2019 12:40:04 11/10/19 20 11/10/2019 urina lysis , dipst ick Unknown Analyte Clear Not Available [facility] [address], [place], [address], 11/10/2019 12:40:04 11/10/19 20 11/10/2019 urina lysis , dipst ick Unknown Analyte Negati ve Not Available [facility] [address], [place], [address], 11/10/2019 12:40:04 11/10/19 20 11/10/2019 urina lysis , dipst ick Unknown Analyte Negati ve Not Available [facility] [address], [place], [address], 11/10/2019 12:40:04 11/10/19 20 11/10/2019 urina lysis , dipst ick Unknown Analyte Negati ve Not Available [facility] [address], [place], [address], 11/10/2019 12:40:04 11/10/19 20 11/10/2019 urina lysis , dipst ick Unknown Analyte 1.020 Not Available [facility] [address], [place], [address], 11/10/2019 12:40:04 11/10/19 20 11/10/2019 urina lysis , dipst ick Unknown Analyte Trace- lysed Not Available [facility] [address], [place], [address], 11/10/2019 12:40:04 11/10/19 20 11/10/2019 urina lysis , dipst ick Unknown Analyte 6.5 Not Available [facility] [address], [place], [address], 11/10/2019 12:40:04 11/10/19 20 11/10/2019 urina lysis , dipst ick Unknown Analyte Negati ve Not Available [address], [place], [address], 11/10/2019 12:40:04 11/10/19 20 11/10/2019 urina lysis , dipst ick Unknown Analyte 0.2 Not Available [address], [place], [address], 11/10/2019 12:40:04 11/10/19 20 11/10/2019 urina lysis , dipst ick Unknown Analyte negati ve Not Available [address], [place], [address], 11/10/2019 12:40:04 11/10/1911/10/2019 urina lysis , dipst ick Unknown Analyte Trace Not Available [address], [place], [address], 11/10/2019 12:40:04 08/18/19 20 elect rocar diogr am No observ ation record ed. [email or web address] Not Available 2019 12:20:47 03/28/2003/22/2020 US, echoc ardio gram, trans thora cic, compl ete, w/ color flow No observ ation record ed. BARCODE [address], [place], [address], 03/28/2020 12:06:37 Result Notes None recorded. Problems Name Problem SNOMED Code Status Onset Date Resolution Date Notes Provider Name and Address Organization Details Recorded Time Hyperten sive heart disease 47228426 Completed 201302/10/2019 (Problem was migrated from [employer] on 07/31/19) [place] [address] [place], [address] , [facility] 9 14:52:59 Hip pain 13002538 Active 2015 (Problem was migrated from [employer]its on 07/31/19) Not Available [facility] [employer] 8 20:48:52 [facility] hyperten brit 24930204 Active 2015 (Problem was migrated from M[employer] on 07/31/19) Not Available [facility] [employer] 8 20:18:11 Musculos keletal chest pain 454688845 Active 2015 (Problem was migrated from [employer] on 07/31/19) Not Available [facility] [employer] 8 20:27:51 Family history of coronary arterios clerosis 144111502 Active 2015 (Problem was migrated from Mover on 07/31/19) Not Available [facility] [employer] 8 20:30:28 Hyperlip idemia 06196860 Active 2019 [place] [address] [place], [address] , [facility] 0 11:40:23 Tobacco dependen ce syndrome 23394056 Active 2015 (Problem was migrated from [employer] on 07/31/19) Not Available [employer] 8 20:34:37 Cat bite - wound 318388796 Completed 201511/10/2019 (Problem was migrated from [employer] on 07/31/19) [place] [address] [place], [address] , [facility] 0 11:36:17 Thallium stress test abnormal 312722944 Active 2015 (Problem was migrated from [employer]its on 07/31/19 18) Not Available [employer] [facility] [employer] 8 20:40:59 Problem Notes Documentation Provider Name and Address Organization Details Recorded Time 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 Unintended recipients are directed to securely destroy any materials received. You are hereby notified that the unauthorized disclosure or other unlawful use of this fax or any personal health information is prohibited. To the extent patient information contained in this fax is subject to 42 CFR Part 2, this regulation prohibits unauthorized disclosure of these records. If you received this fax in error, please visit [email or web address] to notify the sender and confirm that the information will be destroyed. If you do not have internet access, please call to notify the sender and confirm that the information will be destroyed. Thank you for your attention and cooperation. [ID:[id number]] Patient Randolph Jin (69yo, F) #[id number] 1950 Patient Demographics: Address [address] [place] [address] Encounter Notes: Encounter Reason/Date Followup: Essential hypertension 08/18/2019 - 11:00AM - [facility] History of Present Illness patient is a 69-year-old female with a history of essential hypertension, and family history of coronary artery disease. She returns for routine follow-up. Her blood pressure is significantly elevated at 170/109 today. She says it does not run this high at home but that she usually is higher when she goes to the doctor. I rechecked it after she is set for a few minutes and is still significantly elevated. We discussed that if the stress of going to the doctor causes this and they're probably multiple other stressors in her life that would cause similar elevation. Would recommend increasing her beta sorin which should block the stress hormones better to metoprolol ER 50 mg daily instead of 25 mg daily. Review of SystemsCardio Basic:Cardiovascular Symptoms: no chest pressure or pain and no lightheadedness, fatigue, syncope, orthopnea, palpitations, PND, claudication, dyspnea on exertion, leg edema, or shortness of breath. Constitutional:Constitutional : no significant weight gain or loss and no fever. Respiratory:Respiratory: no cough, wheezing, coughing up blood, or sleep apnea. Musculoskeletal:Musculoskelet al: no muscle aches or weakness and no arthralgias/joint pain. Neurologic:Neurologic: no weakness, numbness, dizziness, headaches, or loss of consciousness. Psychiatric:Psych: no depression or sleep disturbances. Vitals Ht: 5 ft 8 in (172.72 cm)08/18/2019 10:37 am Wt: 125 lbs (56.7 kg)08/18/2019 10:37 am BP: 174/104 sitting L arm08/18/2019 10:47 am 170/109 sitting L arm08/18/2019 10:51 am BP Cuff Size: adult08/18/2019 10:47 am adult08/18/2019 10:51 am BMI: 19008/18/2019 10:37 am Body Surface Area: 1.65 m 08/18/2019 10:37 am HR: 63008/18/2019 10:47 am Results/Interpretations ELECTROCARDIOGRAM Ordering provider to read?: Y Physical ExamPatient is a 69-year-old female. Basic Cardio PE:General Appearance alert, in NAD, and normal general appearance. HEENT: no bruit and JVP < 6. Lungs: clear to auscultation. Cardio: no murmurs or gallops and s1 normal and s2 normal. Carotid Arteries: bilateral normal upstroke and no bruits. Thyroid: not enlarged. Abdomen: soft and non tender. Extremities: no edema and pulses 2+. Neurologic: no confusion. Assessment and Plan1. Essential hypertension- suboptimal. Increase metoprolol succinate to 50 mg [id number]: Essential (primary) hypertension ELECTROCARDIOGRAM Ordering provider to read?: Y 2. Body mass index less than 20Z68.1: Body mass index (BMI) 19.9 or less, adult 3. Hyperlipidemia- on vowpiisldnkwJ01.5: Hyperlipidemia, unspecified HIGH CHOLESTEROL: CARE INSTRUCTIONS 4. Family history of coronary arteriosclerosis- Continue current medications plus tobacco avoidance. Discussed diet and exercise is currently [facility] times weekly Z82.49: Family history of ischemic heart disease and other diseases of the circulatory system ELECTROCARDIOGRAM Ordering provider to read?: Y Return to Office Milan Mccord MD for Established Patient 15 at [facility] on 10/19/2019 at 11:00 AM to see Su Fairchild MD for Established Patient 15 at [facility] on or around 02/15/2020 Patient Medical History: Allergies List Reviewed Allergies NKDA Medications Reviewed Medications NameDate Source Adult Low Dose Aspirin 81 mg tablet,delayed releaseTake 1 tablet(s) every day by oral route.08/12/17 entered Anika Roy lisinopriL 10 mg tabletTAKE 1 TABLET BY MOUTH EVERY DAY08/01/19 filled [facility] metoprolol succinate ER 25 mg tablet,extended release 24 hrTAKE 1 TABLET BY MOUTH EVERY DAY04/26/19 filled [facility] rosuvastatin 5 mg tabletTake 1 tablet(s) every day by oral route.07/16/19 filled [facility] Family HistoryReviewed Family History Mother - Family history of chronic obstructive lung disease Father - Heart disease Mother - Heart disease Father: ASHD Father: CABG Mother: CABG Past Medical HistoryReviewed Past Medical History High Blood Pressure (Hypertension):Y Notes: HCVD Vaccine HistoryReviewed Vaccines Vaccine Type Date Amt. Route Site [facility] Lot # Mfr. Exp. 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 Automatic Diphtheria, Tetanus Td (adult) preservative free 03/20/16 Influenza Influenza, injectable, MDCK, quadrivalent 04/20/19 0.5 mL Intramuscular Deltoid, Right [id number] [facility] 12/29/19 02/12/19 04/20/19 Maggie Asher influenza, injectable, quadrivalent 05/01/17 [facility] Electronically Signed by: SU [facility]/18/2019 15:00:56 Data Entry Technician Consult Note : [facility] [address] [id number], PEGGY J (id #[id number], : 1950) [facility] [address] [place] [address] Encounter Summary - Progress Note Date Printed: 02/16/2020 Documents sent via fax will include the followingmessage: This fax may contain sensitive and confidential personal health information that is being sent for the sole use of the intended recipient. Unintended recipients are directed to securely destroy any materials received. You are hereby notified that the unauthorized disclosure or other unlawful use of this fax or any personal health information is prohibited. To the extent patient information contained in this fax is subject to 42 CFR Part 2, this regulation prohibits unauthorized disclosure of these records. If you received this fax in error, please visit [email or web address] to notify the sender and confirm that the information will be destroyed. If you do not have internet access, please call to notify the sender and confirm that the information will be destroyed. Thank you for your attention and cooperation. [ID:[id number]] Patient Randolph Jin (69yo, F) #[id number] 1950 Patient Demographics: Address [address] [place] [id number] Encounter Notes: Encounter Reason/Date Followup: Essential hypertension Followup: Family history of coronary arteriosclerosis 02/16/2020 - 11:00AM - [facility] [place] History of Present Illness Patient is a 69-year-old female with a history of essential hypertension, family history of coronary disease, who returns for routine follow-up. Her blood pressure has been elevated on the last 2 visits so we are going to add amlodipine 5 mg daily and hydrochlorothiazide 12.5 mg daily to her current regimen. She is not had any fever chills or known exposure to COVID-19. No syncope, no prolonged chest pain or tightness. On exam she has a midsystolic 2/6 crescendo decrescendo murmur in the aortic area that sounds like aortic stenosis. She is not had an echocardiogram in some time so we are going to need to order one. Review of SystemsCardio Basic:Cardiovascular Symptoms: no chest pressure or pain and no lightheadedness, fatigue, syncope, orthopnea, palpitations, PND, claudication, dyspnea on exertion, leg edema, or shortness of breath. Constitutional:Constitutional : no significant weight gain or loss and no fever. Respiratory:Respiratory: no cough, wheezing, coughing up blood, or sleep apnea. Musculoskeletal:Musculoskelet al: no muscle aches or weakness and no arthralgias/joint pain. Neurologic:Neurologic: no weakness, numbness, dizziness, headaches, or loss of consciousness. Psychiatric:Psych: no depression or sleep disturbances. Vitals Ht: 5 ft 8 in (172.72 cm)02/15/2020 02:19 pm Wt: 127 lbs 6 oz (57.78 kg)02/16/2020 10:53 am BP: 193/96 sitting L arm02/16/2020 10:56 am 179/92 sitting L arm02/16/2020 10:57 am BMI: 19.408 10:53 am Body Surface Area: 1.66 m 02/16/2020 10:53 am HR: 5108 10:54 am Results/InterpretationsNone recorded Physical ExamPatient is a 69-year-old female. Basic Cardio PE:General Appearance alert, in NAD, and normal general appearance. HEENT: no bruit and JVP < 6. Lungs: clear to auscultation. Cardio: s1 normal, s2 normal, no gallops, andmurmur harsh midsystolic right. Carotid Arteries: bilateral normal upstroke and no bruits. Thyroid: not enlarged. Abdomen: soft and non tender. Extremities: no edema and pulses 2+. Neurologic: no confusion. Assessment and Plan1. Essential hypertension- suboptimal. Increase metoprolol succinate to 50 mg toemqN04: Essential (primary) hypertension HIGH BLOOD PRESSURE: CARE INSTRUCTIONS LEARNING ABOUT HIGH BLOOD PRESSURE 2. Family history of coronary arteriosclerosis- Continue current medications plus tobacco avoidance. Discussed diet and exercise is currently [facility] 3 times weekly Z82.49: Family history of ischemic heart disease and other diseases of the circulatory system 3. Aortic valve stenosis- Has heart murmur consistent with aortic stenosis with no previous history of same. Needs echocardiogram I35.0: Nonrheumatic aortic (valve) stenosis AORTIC VALVE STENOSIS: CARE INSTRUCTIONS US, ECHOCARDIOGRAM, TRANSTHORACIC, COMPLETE, W/ COLOR FLOW Return to Office to see Su Fairchild MD for Established Patient 15 at [facility] on or around 04/17/2020 Milan Mccord MD for Established Patient 15 at [facility] on 05/10/2020 at 10:45 AM Patient Medical History: Allergies List Reviewed Allergies NKDA Medications Reviewed Medications NameDate Source Adult Low Dose Aspirin 81 mg tablet,delayed releaseTake 1 tablet(s) every day by oral route., start filled Anika Roy lisinopril 10 mg mfaxgf57/13/20 filled [facility] meloxicam 15 mg tabletTAKE 1 TABLET BY MOUTH EVERY DAY HEXWMD51/12/20 renewed Milan Mccord MD metoprolol succinate ER 50 mg tablet,extended release 24 hrTake 1 tablet(s) every day by oral route.01/14/20 filled [facility] rosuvastatin 5 mg tabletTake 1 tablet(s) every day by oral route.02/07/20 filled [facility] Family HistoryReviewed Family History Mother - Family history of chronic obstructive lung disease Father - Heart disease Mother - Heart disease Father: ASHD Father: CABG Mother: CABG Past Medical HistoryReviewed Past Medical History High Blood Pressure (Hypertension):Y Notes: HCVD Vaccine HistoryReviewed Vaccines Vaccine Type Date Amt. Route Site [facility] Lot # Mfr. Exp. 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 Automatic Diphtheria, Tetanus Td (adult) preservative free 03/20/16 Influenza Influenza, injectable, MDCK, quadrivalent 04/20/19 0.5 mL Intramuscular Deltoid, Right [id number] [facility] 12/29/19 02/12/19 04/20/19 Maggie Lb influenza, injectable, quadrivalent 05/01/17 [facility] Electronically Signed by: SU FAIRCHILD MD Alem Morris [facility] 02/17/2020 11:14:08 Data Entry Technician Consult Note : [place] [id number] [id number], PEGGY Mansoor (id #[id number], : 1950) [facility] [address] [employer] [address] [place] [address] Encounter Summary - Progress Note Date Printed: 04/05/2020 Documents sent via fax will include the followingmessage: This fax may contain sensitive and confidential personal health information that is being sent for the sole use of the intended recipient. Unintended recipients are directed to securely destroy any materials received. You are hereby notified that the unauthorized disclosure or other unlawful use of this fax or any personal health information is prohibited. To the extent patient information contained in this fax is subject to 42 CFR Part 2, this regulation prohibits unauthorized disclosure of these records. If you received this fax in error, please visit [email or web address] to notify the sender and confirm that the information will be destroyed. If you do not have internet access, please call to notify the sender and confirm that the information will be destroyed. Thank you for your attention and cooperation. 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 Returns for follow-up after adjustment of blood pressure medicines. Her blood pressure is always a little elevated when first put back in the room but after rechecking after sitting a couple of minutes it was fine. She states that over the years it is always higher when she comes to the doctor and has been told she has whitecoat hypertension. She checks it at home fairly frequently and generally gets around mid 130s over 80s so I believe the change in medicines is currently adequate. Because of her aortic valvular sclerosis and mild regurgitation I believe she needs a echocardiogram once a year for follow-up. Review of SystemsCardio Basic:Cardiovascular Symptoms: no chest pressure or pain and no lightheadedness, fatigue, syncope, orthopnea, palpitations, PND, claudication, dyspnea on exertion, leg edema, or shortness of breath. Constitutional:Constitutional : no significant weight gain or loss and no fever. Respiratory:Respiratory: no cough, wheezing, coughing up blood, or sleep apnea. Musculoskeletal:Musculoskelet al: no muscle aches or weakness and no arthralgias/joint pain. Neurologic:Neurologic: no weakness, numbness, dizziness, headaches, or loss of consciousness. Psychiatric:Psych: no depression or sleep disturbances. Vitals Ht: 5 ft 8 in (172.72 cm)04/05/2020 10:20 am Wt: 124 lbs 6 oz (56.42 kg)04/05/2020 10:27 am BP: 142/85 sitting L arm04/05/2020 10:32 am BP Cuff Size: large adult04/05/2020 10:20 am BMI: 18.910 10:27 am Body Surface Area: 1.65 m 04/05/2020 10:27 am HR: 6204/05/2020 10:27 am Results/InterpretationsNone recorded Physical ExamPatient is a 69-year-old female. Basic Cardio PE:General Appearance alert, in NAD, and normal general appearance. HEENT: no bruit and JVP < 6. Lungs: clear to auscultation. Cardio: s1 normal, s2 normal, no gallops, andmurmur soft midsystolic right. Carotid Arteries: bilateral normal upstroke and no bruits. Thyroid: not enlarged. Abdomen: soft and non tender. Extremities: no edema and pulses 2+. Neurologic: no confusion. Assessment and Plan1. Essential hypertension- Improved since medication change I10: Essential (primary) hypertension 2. Aortic valve sclerosis- Follow with yearly echoes I35.8: Other nonrheumatic aortic valve disorders Return to Office Milan Mccord MD for Established Patient 15 at [facility] on 05/10/2020 at 10:45 AM to see Su Fairchild MD for Established Patient 15 at [facility] on or around 10/04/2020 Patient Medical History: Allergies List Reviewed Allergies NKDA Medications Reviewed Medications NameDate Source Adult Low Dose Aspirin 81 mg tablet,delayed releaseTake 1 tablet(s) every day by oral route., start started Anika Roy amLODIPine 5 mg tabletTake 1 tablet(s) every day by oral route.02/16/20 filled [facility] hydroCHLOROthiazide 12.5 mg tabletTake 1 tablet(s) every day by oral route.02/16/20 filled [facility] lisinopril 10 mg wozydj59/13/20 filled [facility] meloxicam 15 mg tabletTAKE 1 TABLET BY MOUTH EVERY DAY IRNWZQ69/08/20 renewed Milan Mccord MD metoprolol succinate ER 50 mg tablet,extended release 24 hrTake 1 tablet(s) every day by oral route.01/14/20 filled [facility] rosuvastatin 5 mg tabletTake 1 tablet(s) every day by oral route.02/07/20 filled [facility] Family HistoryReviewed Family History Mother - Family history of chronic obstructive lung disease Father - Heart disease Mother - Heart disease Father: ASHD Father: CABG Mother: CABG Past Medical HistoryReviewed Past Medical History High Blood Pressure (Hypertension):Y Notes: HCVD Vaccine HistoryReviewed Vaccines Vaccine Type Date Amt. Route Site [facility] Lot # Mfr. Exp. 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 Automatic Diphtheria, Tetanus Td (adult) preservative free 03/20/16 Influenza Influenza, injectable, MDCK, quadrivalent 04/20/19 0.5 mL Intramuscular Deltoid, Right [id number] [facility] 12/29/19 02/12/19 04/20/19 Maggie Asher influenza, injectable, quadrivalent 05/01/17 [facility] Electronically Signed by: SU [facility] 04/06/2020 14:53:13 Procedures Surgical History Date Name Laterality Status Provider Name and Address Organization Details Recorded Time 10/28/19 19 Mini-COG completed [facility] 10/27/2018 11:31:45 10/28/19 19 Fall Risk Screening Tool completed [facility] 10/27/2018 11:31:36 10/28/19 19 PHQ-9 completed [facility] 10/27/2018 11:32:12 10/28/19 19 Visual Acuity completed [facility] 10/27/2018 11:27:49 10/28/19 19 AWE 5-10 Year Plan - [facility] 10/27/2018 11:31:29 [facility]end[facility] completed Not Available [facility] 08/01/2017 13:55:57 Tonsillectomy completed Not Available [facility] 08/01/2017 13:55:57 Imaging Results Imaging Date Name Status LastModified by Organization Details LastModified Time 08/18/2019 electrocardiogram completed Informa tion not available 08/18/2019 12:20:47 03/22/2020 US, echocardiogram, transthoracic, complete, w/ color flow completed [facility] [place] [address], [place], [address], 03/28/2020 12:06:37 Procedure Notes None recorded. Medical Equipment None Reported. Allergies No known drug allergies Medications Name Sig Start Date Stop Date Status Note LastModified by Organization Details LastModified Time lisinopril 10 mg tabs qd active Not Available Not Available N ot Available meloxicam 15 mg tabs 02/14 completed Not Available Not Available Not Available rosuvastatin calcium 5 mg tabs 02/14 completed Not Available Not Available Not Available celecoxib 200 mg capsule Take 1 capsule every day by oral route. 02/09 completed Not Available Not Available Not Available metoprolol succinate ER 50 mg tablet,exten ded release 24 hr TAKE 1 TABLET BY MOUTH ONCE A DAY active Not Available Not Available No t Available hydrocodone 5 mg-acetamino phen 325 mg tablet 04/20 completed Not Available Not Available Not Available meloxicam 15 mg tablet TAKE 1 TABLET BY MOUTH EVERY DAY NEEDED 2019 active Not Available Not Available Not Avai lable amlodipine 5 mg tablet Take 1 tablet every day by oral route. active Not Available Not Available No t Available tramadol 50 mg tablet Take 1 tablet every 6 hours by oral route. 08/13 completed Not Available Not Available Not Available lisinopril 10 mg tablet TAKE 1 TABLET BY MOUTH EVERY DAY active Not Available Not Available No t Available gabapentin 300 mg capsule 02/17 completed Not Available Not Available Not Available metoprolol succinate ER 25 mg tablet,exten ded release 24 hr TAKE 1 TABLET BY MOUTH EVERY DAY 11/09 completed Not Available Not Available Not Available methylpredni solone 4 mg tablets in a dose pack Take 1 dose pk by oral route. 04/20 completed Not Available Not Available Not Available benazepril 10 mg tablet Take 1 tablet every day by oral route. 02/15 completed Not Available Not Available Not Available Adult Low Dose Aspirin 81 mg tablet,delay ed release Take 1 tablet every day by oral route. 2019 active Not Available Not Available Not Avai lable rosuvastatin 5 mg tablet TAKE 1 TABLET BY MOUTH EVERY DAY 2019 active Not Available Not Available Not Avai lable hydrochlorot hiazide 12.5 mg tablet Take 1 tablet every day by oral route. active Not Available Not Available No t Available metoprolol succinate ER 25 mg capsule sprinkle, ext. release 24 hr Take 1 capsule every day by oral route. 02/10 completed Not Available Not Available Not Available Fluzone High-Dose Quad (PF) 240 mcg/0.7 mL IM syringe ADM 0.7ML IM UTD active Not Available Not Available No t Available Vitals Date Recorded Body height Body mass index (BMI) Body weight Heart rate Systolic blood pressure Diastolic blood pressure Systolic blood pressure Diastolic blood pressure Provider Name and Address Organization Details Last Updated DateTime 0 172.72 cm 19 kg/m2 18596.0 5 g 63 /min 174 mm[Hg] 104 mm[Hg] 170 mm[Hg] 109 mm[Hg] Anika Roy [facility] 0 11:51:45 Date Recorded Body height Body mass index (BMI) Body weight Provider Name and Address Organization Details Last Updated DateTime 11/10/2019 172.72 cm 19.2 kg/m2 19721.64 g Maggie Asher [facility] 11/10/2019 11:20:53 Date Recorded Heart rate Systolic blood pressure Diastolic blood pressure Provider Name and Address Organization Details Last Updated DateTime 11/10/2019 72 /min 140 mm[Hg] 84 mm[Hg] [place] [address] [place], [address], [facility] 11/10/2019 11:34:59 Date Recorded Body height Provider Name an d Address Organization Details Last Updated DateTime 02/15/2020 172.72 [facility] 02/15/2020 15:19:20 Date Recorded Body mass index (BMI) Body weight Heart rate Systolic blood pressure Diastolic blood pressure Systolic blood pressure Diastolic blood pressure Provider Name and Address Organization Details Last Updated DateTime 0 19.4 kg/m2 75990.3 3 g 51 /min 193 mm[Hg] 96 mm[Hg] 179 mm[Hg] 92 mm[Hg] Thao Tristan [facility] 0 11:57:10 Date Recorded Body height Body mass index (BMI) Body weight Heart rate Provider Name and Address Organization Details Last Updated DateTime 04/05/2020 172.72 cm 18.9 kg/m2 22931.55 g 62 /min Anika Roy [facility] 04/05/2020 11:27:37 Date Recorded Systolic blood pressure Diastolic blood pressure Provider Name and Address Organization Details Last Updated DateTime 04/05/2020 142 mm[Hg] 85 mm[Hg] [place] [address] [place], [address] 04/05/2020 11:32:29 Date Recorded Body height Body mass index (BMI) Body weight Provider Name and Address Organization Details Last Updated DateTime 05/10/2020 172.72 cm 18.9 kg/m2 52852.45 g Maggie Asher [facility] 05/10/2020 11:22:48 Date Recorded Heart rate Systolic blood pressure Diastolic blood pressure Provider Name and Address Organization Details Last Updated DateTime 05/10/2020 68 /min 130 mm[Hg] 80 mm[Hg] [place] [address] [place], [address] 05/10/2020 11:38:29 Social History Question Answer Notes LastModified by Organizat ion Details LastModified Time Tobacco Smoking Status Former Smoker [facility] 02/11/2018 12:05:49 Do You Have An Advance Directive? No Information not available 02/11/2018 What Is Your Level Of Alcohol Consumption? Occasional Information not available 08/12/2017 Is Blood Transfusion Acceptable In An Emergency? Yes Information not available 02/11/2018 What Is Your Level Of Caffeine Consumption? Moderate Information not available 08/12/2017 How Much Tobacco Do You Chew? None [email or web address] Information not available 02/17/2019 Do You Or Have You Ever Used E-cigarettes Or Vape? Never Used Electronic Cigarettes Information not available 08/18/2019 Does The Patient Have Fever And Cough Or Shortness Of Breath AND In The Last 14 Days Has The Patient Come In Contact With Someone With Confirmed 2019-nCoV? No Information not available 08/18/2019 Does The Patient Have Fever OR Cough OR Shortness Of Breath? No Information not available 11/10/2019 In The Last 14 Days, Has The Patient Had Contact With A COVID-19 Positive Patient Or A COVID-19 Suspect Patient Awaiting Test Results? No Information not available 11/10/2019 If Pulse Oximetry Was Done: Is The Patient's Sp02 Less Than 93% On Room Air? No Information not available 11/10/2019 Does The Patient Have At Least TWO Of These Symptoms? Diarrhea, Chills, Muscle Pain, Repeated Shaking & Chills, Headache, Sore Throat, Or New Loss Of Taste/Smell No Information not available 11/10/2019 Illicit Drug Use? No Information not available 08/18/2019 What Was The Date Of Your Most Recent Tobacco Screening? 05/10/2020 Information not available 05/10/2020 Do You Or Have You Ever Used Smokeless Tobacco? Never Used Smokeless Tobacco Information not available 08/18/2019 How Much Tobacco Do You Smoke? No Quit Information not available 02/10/2019 How Many Years Have You Smoked Tobacco? 50 Information not available 02/11/2018 Sex: Female Functional Status None recorded. Mental Status None recorded. Family History Relationship Description Onset Age of this Age Resolved Age Notes LastModified by Organization Details LastModified Time Mother Family history of chronic obstructive lung disease [email or web address] Not available 08/01/2017 18:30:59 Father Heart disease [email or web address] Not available 11:15:51 Mother Heart disease [email or web address] Not available 11:15:51 Notes:Father: ASHD Father: CABG Mother: CABG Medical History Condition Response High Blood Pressure (Hypertension) Y GERD Y Uterine Fibroids Y Osteoporosis Y Gynecological HistoryNo gynecological history recorded. Obstetrics History GPAL:G 0 P 0 0 0 0 Immunizations Vaccine Type Date Status Note Provider Nam e and Address Organization Details Recorded Time Influenza, MDCK, quadrivalent, preservative 9 completed Not Available [facility] 07/18/2019 02:31:47 Td (adult), 5 Lf tetanus toxoid, preservative free, adsorbed 6 completed Not Available [facility] [employer] 07/31/2017 22:05:08 Influenza, split virus, quadrivalent, preservative 7 completed Hortencia Siddiqui [facility] 10/22/2017 11:15:28 Past Encounters Encounter ID Performer Location Encounter Start Date Encounter Closed Date Diagnosis/Indication Diagnosis SNOMED-CT Code Diagnosis ICD10 Code Diagnosis Note [id number] Su Fairchild MD [facility] [address] [place] [address] 08/13/2017 11:27:44 08/13/2017 12:42:28 Essential hypertension 62003057 I10 Well controlled Family his tory of coronary arteriosclerosis 882567195 Z82.49 Continue current medication s plus tobacco avoidance. Discussed diet and exercise is currently [facility] times weekly Tobacco de pendence syndrome 22808447 F17.200 Stopped smoking 6 months ago has not had a cigarette since [id number] Milan Mccord MD [address] [place] [address] 10/22/2017 11:09:29 10/22/2017 11:48:48 Adult health examination 744864986 Z00.00 rtc 6mos follow up visit..laurence barrientos send lab..cont meds Family his tory of coronary arteriosclerosis 847820809 Z82.49 Essential hypertension 15355641 I10 Tobacco de pendence syndrome 78851696 F17.200 Osteoporosis 29730806 M8 1.0 [id number] Su Fairchild MD [facility] [address] [place] [address] 02/11/2018 11:07:29 02/11/2018 12:25:21 Essential hypertension 97935345 I10 Well controlled [id number] Milan Mccord MD [address] [place] [address] 04/28/2018 11:11:06 04/28/2018 11:41:22 Essential hypertension 42442509 I10 rtc 6mos complete exam..will send lab results..c ont meds Tobacco de pendence syndrome 87767344 F17.200 Discussed the need to stop smoking Pain in ri ght sacroiliac joint 3243256809 4067886 M53.3 Ibuprofen twice a day for 1-2 weeks. If no improvemen t see Dr. Santamaria orthopedic s again Disorder o f breast implant 688165169 T85.9XXA Plastic surgery consultati on Dr. Jennings [id number] Su Fairchild MD [facility] [address] [place] [address] 08/19/2018 10:49:20 08/19/2018 11:54:41 Essential hypertension 47226810 I10 Well controlled Family his tory of coronary arteriosclerosis 471175841 Z82.49 Continue current medication s plus tobacco avoidance. Discussed diet and exercise is currently [facility] 3 times weekly [id number] Milan Mccord MD [address] [place] [address] 10/27/2018 11:24:06 10/27/2018 11:51:03 Long-term drug therapy 636937799 Z79.899 Adult heal th examination 391469089 Z00.00 rtc 6mos follow up visit..laurence barrientos send lab..cont meds Low back pain 063386782 M54.5 Referred back to orthopedic s Dr. Santamaria Essential hypertension 02839366 I10 rtc 6mos follow-up exam..will send lab results..c ont meds Taking hig h risk medication 3904365821 31474 Z91.89 [id number] Milan Mccord MD [facility] [address] [place] [address] 02/06/2019 14:14:18 02/06/2019 14:46:45 Lumbar radiculopathy 043539187 M54.16 RTC 5 days after Celebrex generic 200 mg daily. AP pelvis x-ray on return. Medrol Dosepak from Dr. Santamaria previously did not help. Gabapentin from the emergency room did not help. Peripheral vascular disease 025562501 I73.9 Has an appointmen t to see her cardiologi st Dr. Fairchild in 10 days. Made her a copy of the CT scan which reveals the right iliac artery stenosis. Essential hypertension 83933926 I10 rtc 6mos follow-up exam..will send lab results..c ont meds Taking hig h risk medication 4401761413 86706 Z91.89 [id number] Milan Mccord MD [facility] [address] [place] [address] 02/10/2019 14:05:33 02/10/2019 14:54:55 Lumbar radiculopathy 537780571 M54.16 Pelvis x-ray does not show much hip arthritis. We will set her up for an MRI of the lumbar spine, call the next day for results. May need spine consultati on. Continue meloxicam 15 mg daily as needed. Essential hypertension 41720715 I10 rtc 6mos follow-up exam..will send lab results..c ont meds [id number] Su [facility] [place] [address], [place] [address] 02/17/2019 11:01:16 02/17/2019 13:19:47 Essential hypertension 11580437 I10 Well controlled Peripheral vascular disease 094123911 I73.9 right iliac disease on recent CTA but without claudicati on and with palpable dorsal pedal and posterior tibial pulses. Would add rosuvastat in and continue low-dose aspirin Low back pain 524643827 M54.5 right lower back pain which radiates into the right lateral hip area. 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 [id number] Milan Mccord MD [place] [address] [place] [address] 04/20/2019 11:09:50 04/20/2019 11:40:51 Essential hypertension 09224898 I10 rtc 6mos complete exam..will send lab results..c ont meds Tobacco de pendence syndrome 62526952 F17.200 Discussed the need to stop smoking Chronic low back pain 27 1041156 M54.5 Continue follow-up with publication specialist Long-term drug therapy 447183001 Z79.899 Administra tion of influenza vaccine 99416394 Z23 [id number] [facility] [address] [place] [address] 08/18/2019 11:27:41 08/18/2019 12:06:38 Essential hypertension 16440875 I10 suboptimal . Increase metoprolol succinate to 50 mg daily Body mass index less than 20 959984258 Z68.1 Hyperlipidemia 83667588 E78.5 on rosuvastat in Family his tory of coronary arteriosclerosis 770782421 Z82.49 Continue current medication s plus tobacco avoidance. Discussed diet and exercise is currently [facility] 3 times weekly [id number] Milan Mccord MD [facility] [address] [place] [address] 11/10/2019 11:05:50 11/10/2019 11:40:46 Adult health examination 399312552 Z00.00 rtc 6mos follow up visit..laurence barrientos send lab..cont meds Essential hypertension 18100158 I10 rtc 6mos follow-up exam..will send lab results..c ont meds Family his tory of coronary arteriosclerosis 557573685 Z82.49 Tobacco de pendence syndrome 91354605 F17.200 Discussed the need to stop smoking Chronic low back pain 27 7813047 M54.5 Continue follow-up with publication specialist [id number] Su Fairchild MD [facility] [address] [place] [address] 02/16/2020 11:43:48 02/16/2020 12:06:54 Essential hypertension 82529704 I10 suboptimal . Increase metoprolol succinate to 50 mg daily Family his tory of coronary arteriosclerosis 455077977 Z82.49 Continue current medication s plus tobacco avoidance. Discussed diet and exercise is currently [facility] 3 times weekly Aortic valve stenosis 60 386864 I35.0 Has heart murmur consistent with aortic stenosis with no previous history of same. Needs echocardio gram [id number] Su Fairchild MD [facility] [address] [place] [address] 04/05/2020 11:09:23 04/05/2020 11:41:06 Essential hypertension 16460179 I10 Improved since medication change Aortic dung ve sclerosis 50041860 I35.8 Follow with yearly echoes [id number] Milan Mccord MD [facility] [address] [place] [address] 05/10/2020 11:14:19 05/10/2020 11:37:23 Essential hypertension 05909254 I10 rtc 6mos complete exam..will send lab results..c ont meds Tobacco de pendence syndrome 45722680 F17.200 Discussed the need to stop smoking Hyperlipidemia 79609202 E78.5 Will send lab and advise. Taking hig h risk medication 6683893864 43237 Z91.89 Health Concerns Section Related Observation LastModified by Organization Detai ls LastModified Time None Recorded Concern Status LastModified by Organization Details LastModified Time None Recorded Advance Directives Directive N: Payers Encounter Date Sequence Insurance Name Policy Number Policy Choi Covered Member ID Choi Member ID Guarantor Name 08/18/2019 1 [place] Randolph J Jin [id number] Randolph J Jin 08/18/2019 2 [employer] (MEDICARE SUPPLEMENT) Randolph J Jin [id number] Randolph J Jin 11/10/2019 1 [employer] [facility] Nikolas Jin [id number] Randolph J Jin 11/10/2019 1 [place] Randolph J Jin [id number] Randolph J Jin 02/16/2020 1 [place] Randolph J Jin [id number] Randolph J Jin 02/16/2020 2 [employer] (MEDICARE SUPPLEMENT) Randolph J Jin [id number] Randolph J Jin 04/05/2020 1 [place] Randolph J Jin [id number] Randolph J Jin 04/05/2020 2 [employer] (MEDICARE SUPPLEMENT) Randolph J Jin [id number] Randolph J Jin 05/10/2020 1 [place] Randolph J Jin [id number] Randolph J Jin 05/10/2020 2 [employer] (MEDICARE SUPPLEMENT) Randolph J Jin [id number] Randolph J Jin Notes Date Note Type Note Provider Name and Address Organization Details Recorded Time 0 text/html patient is a 69-year-old female with a history of essential hypertension, and family history of coronary artery disease. She returns for routine follow-up. Her blood pressure is significantly elevated at 170/109 today. She says it does not run this high at home but that she usually is higher when she goes to the doctor. I rechecked it after she is set for a few minutes and is still significantly elevated. We discussed that if the stress of going to the doctor causes this and they're probably multiple other stressors in her life that would cause similar elevation. Would recommend increasing her beta sorin which should block the stress hormones better to metoprolol ER 50 mg daily instead of [place] [address] [place], [address], [facility] 08/18/2019 12:02:57 0 text/html For her exam. Feels well. Has cut back on smoking but needs to quit altogether and this was discussed. Still needs colon cancer screening and I offered colonoscopy or Cologuard but she wants to hold off on both for now. Taking her medications okay, [place] [address] [place], [address], [facility] 11/10/2019 14:59:53 0 text/html Patient is a 69-year-old female with a history of essential hypertension, family history of coronary disease, who returns for routine follow-up. Her blood pressure has been elevated on the last 2 visits so we are going to add amlodipine 5 mg daily and hydrochlorothiazide 12.5 mg daily to her current regimen. She is not had any fever chills or known exposure to COVID-19. No syncope, no prolonged chest pain or tightness. On exam she has a midsystolic 2/6 crescendo decrescendo murmur in the aortic area that sounds like aortic stenosis. She is not had an echocardiogram in some time so we are going to need [place] [address] [place], [address], [facility] 02/16/2020 12:02:46 0 text/html Patient is 69-year-old female with a history of essential hypertension and aortic valvular sclerosis without stenosis. Returns for follow-up after adjustment of blood pressure medicines. Her blood pressure is always a little elevated when first put back in the room but after rechecking after sitting a couple of minutes it was fine. She states that over the years it is always higher when she comes to the doctor and has been told she has whitecoat hypertension. She checks it at home fairly frequently and generally gets around mid 130s over 80s so I believe the change in medicines is currently adequate. Because of her aortic valvular sclerosis and mild regurgitation I believe she needs a echocardiogram once a year [place] [address] [place], [address], [facility] 04/05/2020 11:35:11 0 text/html Follow-up visit, doing well, working. Taking her medications okay. Needs lab[place] [address] [place], [address], [facility] 05/10/2020 22:01:44 OBGyn Episode No OBEpisode recorded.
[2024-08-07 18:07] LABS: Add Urine Microscopic? YES; Appearance Urine Clear (Clear); Bacteria Urine None Seen /hpf; Bilirubin Urine Negative (Negative); Blood Urine Negative (Negative); Color Urine Yellow (Yellow); Glucose Urine UA Negative (Negative); Ketones Urine Negative (Negative); Leukocyte Esterase Ur Trace LEU/UL (Negative); Need Manual Microscopic Reviewed; Nitrate Urine Negative (Negative); Non Pathogenic Casts 0-2; Protein Urine Negative (Negative); RBC Urine 0-2 /hpf (0-2); Specific Grav Ur 1.003 (1.001-1.035); Squamous Epithelial Cell Urine None Seen /hpf (Few); Urobilinogen Urine 0.2 mg/dL (<2.0); WBC Urine 0-5 /hpf (0-3)
== END 2024-08-07 17:06 | disposition home or self-care (01) ==
PROVIDERS: PCP Physician Assistant; Visit Provider Physician Assistant
DX: M51.34 Other intervertebral disc degeneration, thoracic region (principal); M51.369 Other intervertebral disc degeneration, lumbar region without mention of lumbar back pain or lower extremity pain; M48.56XA Collapsed vertebra, not elsewhere classified, lumbar region, initial encounter for fracture
CPT/HCPCS: 72070; 72100; 81001

== ENCOUNTER 2024-08-25 16:32 | Outpatient (CLI) | payer MEDICARE, SELFPAY ==
--- NOTE | ~2024-08-25 | CT_ITS ---
EXAMINATION:CT lung screening DATE: 08/25/2024 16:53 INDICATION: Nicotine dependence, cigarettes, uncomplicated. TECHNIQUE: Computed tomography (CT) of the chest was performed without intravenous contrast. Automate d exposure control and iterative reconstruction technique were employed. The dose-length product (DLP ) was 65.27 mGy-cm. COMPARISON: Chest CT 05/10/2023 FINDINGS: There is stable mild scarring at the lung apices. There is mild atelectasis bilaterally. No pleural effusion. The heart size is normal. There are coronary artery calcifications. There are calc ifications of the aortic valve. There is a trace pericardial effusion. There are bilateral breast imp lants, ruptured on the right. There is a 9 mm cyst in the liver. There is a gallstone in the gallblad lima which is normal in size. There is a 4.0 cm cyst in left kidney. There is mild thoracic spondylosi s. There is a chronic burst fracture of L1. IMPRESSION: 1. Lung-RADS category 2: Benign appearance or behavior. Continue annual screening with noncontrast lo w-dose chest CT in 12 months. Reviewed, dictated and finalized at location A. 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 Lung-RADS category 2: Benign appearance or behavior. Continue annual screeni ng with noncontrast low-dose chest CT in 12 months.
--- OUTSIDE RECORDS SUMMARY | 2024-08-25 18:44 | XMS_ITS | Data Portability ---
Author Organization RUBI RAJSharon Caceres Address [address] [facility] [place] [address] Care Team Providers Care Ornamenter Hand Name Role Phone ROBERTO HAIRSTON Primary Care Provider Unavailab le Assessment Encounter Date Assessment Date Assessment LastModified by Organization Details LastModified Time 02/14/2024 02/14/2024 Pt declines mammogram and colonoscopy screening. [email or web address] Not available 02/14/2024 16:16:53 Plan of Treatment Reminders Order Date Submit Date Provider Last Modified By Organization Details Last Modified Time Details Appointments ANY 15 2024 03:15P M CORRY Ahumada Not available Not available Not available Lab hepatic function panel, serum 2023 024 [facility], [address], [place], [address], 02/25/2024 12:07:25 BMP, serum or plasma 2023 024 [facility], [address], [place], [address], 02/25/2024 12:07:39 CBC w/ auto diff 2023 024 [facility], [address] , [place], [address], 02/25/2024 12:07:43 TSH + free T4, serum 2023 024 SONYA [facility], [address] [facility], [place], [address], 02/25/2024 07:40:37 vitamin B12 + folate, serum or blood 2023 024 [email or web address] [facility], [address], [place], [address], 02/25/2024 12:07:54 lipid panel, serum 2023 024 [facility], [address], [place], [address], 02/25/2024 07:40:37 Referral None recorded. Procedures None recorded. Surgeries None recorded. Imaging None recorded. Medication Orders sertralin e 50 mg tablet 2023 025 [id number], [address], [place], [place], [id number], 08/14/2024 12:05:13 amlodipin e 5 mg tablet 2023 024 [facility] #[id number], [address], [place], [place], [id number], 08/14/2024 12:04:29 rosuvasta tin 5 mg tablet 2023 024 [facility] #[id number], [address], [place], [place], [id number], 08/14/2024 12:04:35 Patient TargetsNo targets recorded. Patient InstructionsNo instructions recorded. Reason for Referral Pain Management Referral for Compression fracture of lumbar spine PCP ordering MRI lumbar spine to have prior to pain med visit. Referring Physician: Roberto Hairston, Internal Medicine, Encounter Date: 08/14/2024 Results Created Date Observation Date Name Description Value Unit Range Abnormal Flag Note LastModifiedBy Organization Detail LastModifiedTime 08/08/1908/07/2024 XR, lumbo sacra l spine , 2 or 3 view No observ ation record ed. [facility] [address], [place], [address], 08/11/2024 17:41:16 08/25/19 25 08/25/2024 LDCT, chest , for lung cance r klaus ridley No observ ation record ed. [facility] [address], [place], [address], 08/25/2024 18:19:57 Result Notes None recorded. Problems Name Problem SNOMED Code Status Onset Date Resolution Date Notes Provider Name and Address Organization Details Recorded Time Hyperlipidemia 69511047 Active 2023 Viviana [place] null, [place] [facility] 16:18:43 Smoker 57056323 Active 2023 Viv[place] [facility] 16:18:51 Benign essential hypertension 8552757 Active 2023 Viv[place] [facility] 16:18:59 Heart murmur 88697975 Active 2023 Viv[place] [facility] 4 16:19:07 Long-term drug therapy Active 2023 CORRY Ahumada Attn: Kaleigh g,[address] [facility], [place], [address], [place] [facility] 4 23:32:44 Depressive disorder 51126657 Active 2023 CORRY Ahumada Attn: Accountin g,[address] [facility], [place], [address], [place] [facility] 4 23:32:54 Body mass index less than 20 236624645 Active 2023 CORRY Ahumada Attn: Accountin g,[address] [facility], [place], [address], [place] [facility] 4 23:33:23 Dizziness 642948251 Active 2024 CORRY Ahumada Attn: Isaiin g,[address] [facility], [place], [address], [place] [facility] 5 12:31:12 Compression fracture of lumbar spine 004929062 Active 2024 CORRY Ahumada Attn: Kaleigh allen,[address], [place], [address] [place] [address] 12:31:14 Problem Notes None recorded. Procedures Surgical History Date Name Laterality Status Provider Name and Address Organization Details Recorded Time section [facility] 16:20:55 Appendectomy completed Viviana Duenas [facility] 09/02/2023 16:21:02 Imaging Results Imaging Date Name Status LastModified by Organiz ation Details LastModified Time 08/07/2024 XR, lumbosacral spine, 2 or 3 view completed [address] [facility], [place], [address], 08/11/2024 17:41:16 08/25/2024 LDCT, chest, for lung cancer screening active [address], [place], [address], 08/25/2024 18:19:57 Procedure Notes None recorded. Medical Equipment None Reported. Allergies No known drug allergies Medications Name Sig Start Date Stop Date Status Note LastModified by Organization Details LastModified Time amlodipine 5 mg tablet Take 1 tablet every day by oral route for 90 days. active Not Available Not Available No t Available sertraline 25 mg tablet TAKE 1 TABLET BY MOUTH EVERY DAY 08/14 completed Not Available Not Available Not Available sertraline 50 mg tablet Take by oral route for 90 days. 2024 active Not Available Not Available Not Avai lable rosuvastatin 5 mg tablet Take 1 tablet every day by oral route for 90 days. active Not Available Not Available No t Available Vitals Date Recorded Body height Body mass index (BMI) Body weight Heart rate Oxygen saturation Oxygen saturation in Arterial blood by Pulse oximetry Systolic blood pressure Diastolic blood pressure Provider Name and Address Organization Details Last Updated DateTime 4 170.18 cm 18.8 kg/m2 51376.0 8 g 78 /min 99 % 99 % 142 mm[Hg] 68 mm[Hg] Meenakshi Childs MA [facility] 4 15:54:00 Date Recorded Respiratory rate Systolic blood pressure Diastolic blood pressure Provider Name and Address Organization Details Last Updated DateTime 02/14/2024 18 /min 134 mm[Hg] 80 mm[Hg] CORRY Ahumada Attn: Accounting, [address] [place], [address], [facility] 02/14/2024 16:11:49 Date Recorded Body height Body mass index (BMI) Body weight Oxygen saturation Oxygen saturation in Arterial blood by Pulse oximetry Heart rate Provider Name and Address Organization Details Last Updated DateTime 170.18 cm 19.6 kg/m2 62796.0 5 g 98 % 98 % 62 /min Duglas Salazar MA [facility] 12:10:07 Date Recorded Respiratory rate Systolic blood pressure Diastolic blood pressure Provider Name and Address Organization Details Last Updated DateTime 08/14/2024 16 /min 138 mm[Hg] 80 mm[Hg] CORRY Ahumada Attn: Accounting, [address] [place], [address], [facility] 08/14/2024 12:44:07 Social History Question Answer Notes LastModified by Organizat ion Details LastModified Time Tobacco Smoking Status Current Every Day Smoker Viviana Goodman espino, [facility] 09/02/2023 16:20:20 Do You Have An Advance Directive? Yes Daughter Information not available 08/14/2024 What Is Your Level Of Alcohol Consumption? None [email or web address] Information not available 09/02/2023 Are You Blind Or Do You Have Difficulty Seeing? Yes Glasses Information not available 08/14/2024 What Is Your Level Of Caffeine Consumption? Moderate [email or web address] Information not available 09/02/2023 In The 14 Days Before Symptom Onset, Have You Had Close Contact With A Laboratory-confir med COVID-19 While That Case Was Ill? No [email or web address] Information not available 09/02/2023 In The 14 Days Before Symptom Onset, Have You Had Close Contact With A Person Who Is Under Investigation For COVID-19 While That Person Was Ill? No [email or web address] Information not available 09/02/2023 Have You Been To An Area Known To Be High Risk For COVID-19? No [email or web address] Information not available 09/02/2023 Are You Currently Employed? No [email or web address] Information not available 09/02/2023 Are You Deaf Or Do You Have Serious Difficulty Hearing? No Information not available 08/14/2024 What Type Of Diet Are You Following? REGULAR [email or web address] Information not available 09/02/2023 Are There Any Guns Present In Your Home? No Information not available 08/14/2024 What Was The Date Of Your Most Recent Tobacco Screening? 08/14/2024 Information not available 08/14/2024 What Is Your Current Pack Years? 30ormorepack years [email or web address] Information not available 09/02/2023 What Is Your Relationship Status? [email or web address] Information not available 09/02/2023 Do You Use Your Seat Belt Or Car Seat Routinely? Yes [email or web address] Information not available 09/02/2023 Do You Have Smoke And Carbon Monoxide Detectors In Your Home? Yes [email or web address] Information not available 09/02/2023 At What Age Did You Start Smoking Tobacco? 14 [email or web address] Information not available 09/02/2023 How Much Tobacco Do You Smoke? 0.5 PPD 1/2 Pack - 1 Pack Information not available 08/14/2024 Do You Use Any Illicit Or Recreational Drugs? No [email or web address] Information not available 09/02/2023 Do You Use Sunscreen Routinely? Yes [email or web address] Information not available 09/02/2023 Has Tobacco Cessation Counseling Been Provided? No Information not available 02/14/2024 How Many Years Have You Smoked Tobacco? 50 Information not available 02/14/2024 Do You Or Have You Ever Used Any Other Forms Of Tobacco Or Nicotine? No [email or web address] Information not available 09/02/2023 Sex: Female Functional Status Question Answer Note LastModified by Organization D etails LastModified Time Are you able to care for yourself? Yes Information n ot available 08/14/2024 What is your exercise level? None [email or web address] Information not available 09/02/2023 Mental Status None recorded. Family History Nothing Reported. Medical History Condition Response Have you had a colonoscopy in the last 1 0 years? N Gynecological History Statement/Question Response Menses Monthly N On BCP's at Conception? N Obstetrics History GPAL:G 0 P 0 0 0 0 Past Encounters Encounter ID Performer Location Encounter Start Date Encounter Closed Date Diagnosis/Indication Diagnosis SNOMED-CT Code Diagnosis ICD10 Code Diagnosis Note [id number] CORRY Ahumada [facility] [employer] [address] [place] [address] 02/14/2024 15:45:11 02/14/2024 16:23:15 Benign essential hypertension 3230084 I10 Refill amlodipine 5 mg daily Hyperlipidemia 29120031 E78.5 Refill rosuvastat in 5 mg daily and check fasting lipid panel Long-term drug therapy 681784798 Z79.899 CBC, BMP, LFT, thyroid panel and vitamin B12 and folate labs are due Depressive disorder 3548 9007 F32.A Refill on sertraline 50 mg daily. Depression is controlled per patient report Smoker 25270426 F17.200 pt is down to 2-3 packs per week. Body mass index less than 20 985317946 Z68.1 BMI is 18.8 [id number] CORRY Ahumada [facility] [employer] [address] [place] [address] 08/14/2024 11:59:37 08/14/2024 13:19:11 Body mass index less than 20 110805807 Z68.1 BMI is 19.6 Benign ess ential hypertension 9768683 I10 Refill amlodipine 5 mg daily Hyperlipidemia 53165556 E78.5 rosuvastat in 5 mg daily and check fasting lipid panel Depressive disorder 3548 9007 F32.A on sertraline 50 mg daily. Depression is controlled per patient report Long-term drug therapy 727041319 Z79.899 Smoker 61399701 F17.210 pt is down to 2-3 packs per week. Compressio n fracture of lumbar spine 419829957 M48.56XA Dizziness 127847736 R42 Poor short -term memory 243015796 R41.3 Heart murmur 60950764 R0 1.1 Carotid bruit 218948095 R09.89 Health Concerns Section Related Observation LastModified by Organization Detai ls LastModified Time None Recorded Concern Status LastModified by Organization Details LastModified Time None Recorded Advance Directives Directive Y: Daughter Payers Encounter Date Sequence Insurance Name Policy Number Policy Choi Covered Member ID Choi Member ID Guarantor Name 02/14/2024 1 [facility] (MEDICARE REPLACEMENT/A DVANTAGE - PPO) [id number] Yuliya Harris [id number] Yuliya Harris Notes Date Note Type Note Provider Name and Address Organization Details Recorded Time 024 text/ht ml Anxiety/DepressionReported bypatient.Notes:Patient is taking sertraline 50 mg daily for depressionHyperlipidemiaReported bypatient.Notes:Patient is taking rosuvastatin 5 mg daily and is due for labsHypertensionReported bypatient.Notes:Patient is taking amlodipine 5 mg daily Patient does continue to still smoke cigarettes CORRY Ahumada Attn: Accounting, [address] [place], [address], [place] [facility] 02/29/2024 23:33:42 OBGyn Episode No OBEpisode recorded.
--- OUTSIDE RECORDS SUMMARY | 2024-08-25 18:44 | XMS_ITS | Data Portability ---
Author Organization [facility] Documents Address [address] [facility] [place] [address] Care Team Providers Care Air Marshal Name Role Phone MILAN MCCORD Primary Care Provider Assessment No assessment recorded. Plan of Treatment Reminders Order Date Submit Date Provider Last Modified By Organization Details Last Modified Time Details Appointments None recorded. Lab BMP, serum or plasma 2019 020 [facility], [address] [place], [address], 0 09:23:29 lipid panel, serum 2019 020 [facility], [address] [place], [address], 0 09:23:28 CMP, serum or plasma 2019 020 [facility], [address] [place], [address], 0 06:47:16 lipid panel, serum 2019 020 [facility], [address] [place], [address], 0 06:47:15 CBC w/ auto diff 2019 020 charlie [facility], [address], [address], [place], [address], 0 14:21:37 urinalysis , dipstick 2019 020 [facility], [address], [address], [place], [address], 0 14:21:37 Referral None recorded. Procedures None recorded. Surgeries None recorded. Imaging US, echocardio gram, transthora cic, complete, w/ color flow 2019 020 [facility], [address], [address], [place], [address], 0 12:06:37 electrocar diogram 2019 020 [email or web address] [facility] [place], [address], [address], [place], [address], 0 08:53:07 Medication Orders None recorded. Patient TargetsNo targets recorded. Patient Instructions Encounter Date Encounter Id Patient Instructions Last Modified By Organization Details Last Modified Time 08/18/2019 [id number] high cholesterol : care instructions [email or web address] Not available 08/18/2019 12:02:54 11/10/2019 [id number] deciding about using medicines to quit smoking [...] Exam [email or web address] Not available 11/10/2019 11:19:42 02/16/2020 [id number] high blood pressure: care instructions [email or web address] Not available 02/17/2020 12:23:25 learning about high blood pressure [email or web address] Not available 02/17/2020 12:23:25 aortic valve stenosis: care instructions Not available 02/16/2020 12:02:38 05/10/2020 [id number] deciding about using medicines to quit smoking [...] total 129 mg/dL <200 normal Not Available [facility] [address] [place], [address], 11/11/2019 06:47:15 11/11/1911/11/2019 lipid panel , serum HDL cholesterol 48 mg/dL > or = 50 low Not Available [facility] [address] [place], [address], 11/11/2019 06:47:15 11/11/19 20 11/11/2019 lipid panel , serum triglyceride s 98 mg/dL <150 normal Not Available [facility] [address] [place], [address], 11/11/2019 06:47:15 11/11/19 20 11/11/2019 lipid panel [...] 9): 2061- 2068 (http ://ed ucati on.Qu estPlayfish. com/f aq/FA Q164) Not Available [facility] [address] [place], [address], 11/11/2019 06:47:15 11/11/19 20 11/11/2019 lipid panel , serum chol/HDLC ratio 2.7 (calc ) <5.0 normal Not Available [facility] [address] [place], [address], 11/11/2019 06:47:15 11/11/19 20 11/11/2019 lipid panel , serum non HDL cholesterol 81 mg/dL _(modesta c) <130 normal For patie nts with diabe collins plus 1 major ASCVD risk facto r, treat ing to a non-H DL-C goal of <100 mg/dL (LDL- C of <70 mg/dL ) is consi dered a thera peuti c optio n. Not Available [facility] [address] [place], [address], 11/11/2019 06:47:15 11/11/1911/11/2019 CMP, serum or plasm a glucose 75 mg/dL 65-99 normal Fasti ng refer ence inter dung Not Available [facility] [address] [place], [address], 11/11/2019 06:47:16 11/11/19 20 11/11/2019 CMP, serum or plasm a urea nitrogen (BUN) 15 mg/dL 7-25 normal Not Available [facility] [address] [place], [address], 11/11/2019 06:47:16 11/11/1911/11/2019 CMP, serum or plasm a creatinine 0.89 mg/dL 0.60-0 .93 normal For patie nts >49 years of age, the refer ence limit for Creat inine is appro ximat carlos manuel 13% highe r for peopl e ident ified as Afric an-Am asmita n. Not Available [facility] [address] [place], [address], 11/11/2019 06:47:16 11/11/1911/11/2019 CMP, serum or plasm a eGFR non-afr. welsh 66 mL/mi n/1.7 3m2 > or = 60 normal Not Available [facility] [address] [place] [address], [address], 11/11/2019 06:47:16 11/11/1911/11/2019 CMP, serum or plasm a eGFR 76 mL/mi n/1.7 3m2 > or = 60 normal Not Available [facility] [address] [place] [address], [address], 11/11/2019 06:47:16 11/11/1911/11/2019 CMP, serum or plasm a BUN/creatini ne ratio NOT APPLIC ABLE (calc ) 6-22 Not Available [facility] [address] [place] [address], [address], 11/11/2019 06:47:16 11/11/1911/11/2019 CMP, serum or plasm a sodium 138 mmol/ L 135-14 6 normal Not Available [facility] [address] [place] [address], [address], 11/11/2019 06:47:16 11/11/1911/11/2019 CMP, serum or plasm a potassium 4.0 mmol/ L 3.5-5. 3 normal Not Available [facility] [address] [place] [address], [address], 11/11/2019 06:47:16 11/11/1911/11/2019 CMP, serum or plasm a chloride 102 mmol/ L 98-110 normal Not Available [facility] [address] [place] [address], [address], 11/11/2019 06:47:16 11/11/1911/11/2019 CMP, serum or plasm a carbon dioxide 32 mmol/ L 20-32 normal Not Available [facility] [address] [place] [address], [address], 11/11/2019 06:47:16 11/11/1911/11/2019 CMP, serum or plasm a calcium 10.1 mg/dL 8.6-10 .4 normal Not Available [facility] [address] [place] [address], [address], 11/11/2019 06:47:16 11/11/1911/11/2019 CMP, serum or plasm a protein, total 6.5 g/dL 6.1-8. 1 normal Not Available [facility] [address] [place] [address], [address], 11/11/2019 06:47:16 11/11/1911/11/2019 CMP, serum or plasm a albumin 4.4 g/dL 3.6-5. 1 normal Not Available [facility] [address] [place] [address], [address], 11/11/2019 06:47:16 11/11/1911/11/2019 CMP, serum or plasm a globulin 2.1 g/dL_ (calc ) 1.9-3. 7 normal Not Available [facility] [address] [place], [address], 11/11/2019 06:47:16 11/11/1911/11/2019 CMP, serum or plasm a albumin/glob ulin ratio 2.1 (calc ) 1.0-2. 5 normal Not Available [facility] [address] [place], [address], 11/11/2019 06:47:16 11/11/1911/11/2019 CMP, serum or plasm a bilirubin, total 0.6 mg/dL 0.2-1. 2 normal Not Available [facility] [address] [place] [address], [address], 11/11/2019 06:47:16 11/11/1911/11/2019 CMP, serum or plasm a alkaline phosphatase 39 U/L 37-153 normal Not Available [facility] [address] [place] [address], [address], 11/11/2019 06:47:16 11/11/1911/11/2019 CMP, serum or plasm a AST 11 U/L 10-35 normal Not Available [facility] [address] [place] [address], [address], 11/11/2019 06:47:16 11/11/1911/11/2019 CMP, serum or plasm a ALT 5 U/L 6-29 low NO COLLE CTION DATE RECEI FLIP. WE HAVE USED THE DATE THE SPECI MEN WAS RECEI FLIP BY THIS LABOR ATORY THE COLLE CTION DATE. IF THIS IS INCOR RECT, PLEAS E CONTA CT CLIEN T SERVI JEFFRYE. PHONE NUMBE R: [phone] Not Available [facility] [address] [place] [address], [address], 11/11/2019 06:47:16 05/11/20 20 05/11/2020 lipid panel , serum cholesterol, total 134 mg/dL <200 normal Not Available [facility] [address] [place], [address], 05/11/2020 09:23:28 05/11/20 20 05/11/2020 lipid panel , serum HDL cholesterol 52 mg/dL > or = 50 normal Not Available [facility] [address] [place], [address], 05/11/2020 09:23:28 05/11/2005/11/2020 lipid panel , serum triglyceride s 91 mg/dL <150 normal Not Available [facility] [address] [place], [address], 05/11/2020 09:23:28 05/11/2005/11/2020 lipid panel , serum [...] 2061- 2068 (http ://ed ucati on.Qu bryceDi Adtuitives. com/f aq/FA F704) Not Available [facility] [address] [place], [address], 05/11/2020 09:23:28 05/11/2005/11/2020 lipid panel , serum chol/HDLC ratio 2.6 (calc ) <5.0 normal Not Available [facility] [address] [place], [address], 05/11/2020 09:23:28 05/11/2005/11/2020 lipid panel , serum non HDL cholesterol 82 mg/dL _(modesta c) <130 normal For patie nts with diabe collins plus 1 major ASCVD risk facto r, treat ing to a non-H DL-C goal of <100 mg/dL (LDL- C of <70 mg/dL ) is consi dered a thera peisai c optio n. Not Available [facility] [address] [place], [address], 05/11/2020 09:23:28 05/11/2005/11/2020 BMP, serum or plasm a glucose 83 mg/dL 65-99 normal Fasti ng refer ence inter dung Not Available [facility] [address] [place], [address], 05/11/2020 09:23:29 05/11/2005/11/2020 BMP, serum or plasm a urea nitrogen (BUN) 12 mg/dL 7-25 normal Not Available [facility] [address] [place], [address], 05/11/2020 09:23:29 05/11/2005/11/2020 BMP, serum or plasm a creatinine 0.84 mg/dL 0.60-0 .93 normal For patie nts >49 years of age, the refer ence limit for Creat inine is appro ximat carlos manuel 13% highe r for peopl e ident ified as Afric an-Am asmita n. Not Available [facility] [address] [place], [address], 05/11/2020 09:23:29 05/11/2005/11/2020 BMP, serum or plasm a eGFR non-afr. welsh 70 mL/mi n/1.7 3m2 > or = 60 normal Not Available [facility] [address] [place], [address], 05/11/2020 09:23:29 05/11/2005/1105/11/2020 BMP, serum or plasm a eGFR 81 mL/mi n/1.7 3m2 > or = 60 normal Not Available [facility] [address] [place] [address], [address], 05/11/2020 09:23:29 05/11/20 20 05/11/2020 BMP, serum or plasm a BUN/creatini ne ratio NOT APPLIC ABLE (calc ) 6-22 Not Available [facility] [address] [place] [address], [address], 05/11/2020 09:23:29 05/11/20 20 05/11/2020 BMP, serum or plasm a sodium 137 mmol/ L 135-14 6 normal Not Available [facility] [address] [place] [address], [address], 05/11/2020 09:23:29 05/11/20 20 05/11/2020 BMP, serum or plasm a potassium 4.2 mmol/ L 3.5-5. 3 normal Not Available [facility] [address] [place] [address], [address], 05/11/2020 09:23:29 05/11/2005/11/2020 BMP, serum or plasm a chloride 102 mmol/ L 98-110 normal Not Available [facility] [address] [place] [address], [address], 05/11/2020 09:23:29 05/11/20 20 05/11/2020 BMP, serum or plasm a carbon dioxide 26 mmol/ L 20-32 normal Not Available [facility] [address] [place] [address], [address], 05/11/2020 09:23:29 05/11/2005/11/2020 BMP, serum or plasm a calcium 9.4 mg/dL 8.6-10 .4 normal NO COLLE CTION DATE RECEI FLIP. WE HAVE USED THE DATE THE SPECI MEN WAS RECEI FLIP BY THIS LABOR ATORY THE COLLE CTION DATE. IF THIS IS INCOR RECT, PLEAS E CONTA CT CLIEN T SERVI JEFFREY. PHONE NUMBE R: [phone] Not Available [facility] [address] [place], [address], 05/11/2020 09:23:29 11/10/1911/10/2019 CBC w/ auto diff WBC mL 4.1-10 .9 Not Available [facility] [address], [place], [address], 11/10/2019 12:40:01 11/10/1911/10/2019 CBC w/ auto diff lym mL 0.6-4. 1 Not Available [place] [address], [place], [address], 11/10/2019 12:40:01 11/10/1911/10/2019 CBC w/ auto diff lym% % 10.0-5 8.5 Not Available [place] [address], [place], [address], 11/10/2019 12:40:01 11/10/1911/10/2019 CBC w/ auto diff mid mL 0.0-1. 8 Not Available [address], [place], [address], 11/10/2019 12:40:01 11/10/1911/10/2019 CBC w/ auto diff mid% % 0.01-2 4.0 Not Available [place] [address], [place], [address], 11/10/2019 12:40:01 11/10/1911/10/2019 CBC w/ auto diff gran mL 2.0-7. 8 Not Available [place] [address], [place], [address], 11/10/2019 12:40:01 11/10/1911/10/2019 CBC w/ auto diff gran% % 37.0-9 2.0 Not Available [place] [address], [place], [address], 11/10/2019 12:40:01 11/10/1911/10/2019 CBC w/ auto diff RBC mL 4.20-6 .3 Not Available [place] [address], [place], [address], 11/10/2019 12:40:01 11/10/1911/10/2019 CBC w/ auto diff HGB g/dL 12.0-1 8.0 Not Available [address], [place], [address], 11/10/2019 12:40:01 11/10/1911/10/2019 CBC w/ auto diff HCT % 37.0-5 1.0 Not Available [address], [place], [address], 11/10/2019 12:40:01 11/10/1911/10/2019 CBC w/ auto diff MCV fL 80.0-9 7.0 Not Available [address], [place], [address], 11/10/2019 12:40:01 11/10/1911/10/2019 CBC w/ auto diff MCH pg 26.0-3 2.0 Not Available [place] [address], [place], [address], 11/10/2019 12:40:01 11/10/1911/10/2019 CBC w/ auto diff MCHC g/dL 31.0-3 6.0 Not Available [place] [address], [place], [address], 11/10/2019 12:40:01 11/10/1911/10/2019 CBC w/ auto diff RDW % 11.5-1 4.5 Not Available [address], [place], [address], 11/10/2019 12:40:01 11/10/1911/10/2019 CBC w/ auto diff plt K/uL 140-44 0 Not Available [address], [place], [address], 11/10/2019 12:40:01 11/10/1911/10/2019 CBC w/ auto diff MPV fL 0.0-99 .8 Not Available [address], [place], [address], 11/10/2019 12:40:01 11/10/1911/10/2019 CBC w/ auto diff pct % 0.190- 0.360 Not Available [address], [place], [address], 11/10/2019 12:40:01 11/10/1911/10/2019 CBC w/ auto diff pdw L 15.5-1 7.1 Not Available [address], [place], [address], 11/10/2019 12:40:01 11/10/1911/10/2019 urina lysis , dipst ick Unknown Analyte Yellow Not Available [address], [place], [address], 11/10/2019 12:40:04 11/10/19 20 11/10/2019 urina lysis , dipst ick Unknown Analyte Clear Not Available [place] [address], [place], [address], 11/10/2019 12:40:04 11/10/19 20 11/10/2019 urina lysis , dipst ick Unknown Analyte Negati ve Not Available [place] [address], [place], [address], 11/10/2019 12:40:04 11/10/19 20 11/10/2019 urina lysis , dipst ick Unknown Analyte Negati ve Not Available [place] [address], [place], [address], 11/10/2019 12:40:04 11/10/19 20 11/10/2019 urina lysis , dipst ick Unknown Analyte Negati ve Not Available [place] [address], [place], [address], 11/10/2019 12:40:04 11/10/19 20 11/10/2019 urina lysis , dipst ick Unknown Analyte 1.020 Not Available [place] [address], [place], [address], 11/10/2019 12:40:04 11/10/19 20 11/10/2019 urina lysis , dipst ick Unknown Analyte Trace- lysed Not Available [place] [address], [place], [address], 11/10/2019 12:40:04 11/10/19 20 11/10/2019 urina lysis , dipst ick Unknown Analyte 6.5 Not Available [place] [address], [place], [address], 11/10/2019 12:40:04 11/10/19 20 11/10/2019 urina lysis , dipst ick Unknown Analyte Negati ve Not Available [address], [place], [address], 11/10/2019 12:40:04 11/10/19 20 11/10/2019 urina lysis , dipst ick Unknown Analyte 0.2 Not Available [address], [place], [address], 11/10/2019 12:40:04 11/10/19 20 11/10/2019 urina lysis , dipst ick Unknown Analyte negati ve Not Available [address], [place], [address], 11/10/2019 12:40:04 11/10/1911/10/2019 urina lysis , dipst ick Unknown Analyte Trace Not Available [address], [place], [address], 11/10/2019 12:40:04 08/18/19 20 elect rocar diogr am No observ ation record ed. [email or web address] Not Available 2019 12:20:47 03/28/2003/22/2020 US, echoc ardio gram, trans thora cic, compl ete, w/ color flow No observ ation record ed. BARCODE [address], [place], [address], 03/28/2020 12:06:37 Result Notes None recorded. Problems Name Problem SNOMED Code Status Onset Date Resolution Date Notes Provider Name and Address Organization Details Recorded Time Hyperten sive heart disease 53351688 Completed 201302/10/2019 (Problem was migrated from [employer] on 07/31/19) [place] [address] [place], [address] , [employer] [facility] 9 14:52:59 Hip pain 37330443 Active 2015 (Problem was migrated from [employer] on 07/31/19) Not Available [facility] [employer] [employer] 8 20:48:52 [facility] hyperten brit 54038944 Active 2015 (Problem was migrated from [employer] on 07/31/19) Not Available [facility] [employer] 8 20:18:11 Musculos keletal chest pain 122633177 Active 2015 (Problem was migrated from [employer] on 07/31/19) Not Available [facility] [employer] [employer] 8 20:27:51 Family history of coronary arterios clerosis 226403753 Active 2015 (Problem was migrated from [employer] on 07/31/19) Not Available [facility] [employer] [employer] 8 20:30:28 Hyperlip idemia 32663692 Active 2019 [place] [address] [place], [address] , [facility] 0 11:40:23 Tobacco dependen ce syndrome 51791540 Active 2015 (Problem was migrated from [employer] on 07/31/19) Not Available [employer] 8 20:34:37 Cat bite - wound 296183563 Completed 201511/10/2019 (Problem was migrated from [employer] on 07/31/19) [place] [address] [place], [address] , [facility] 0 11:36:17 Thallium stress test abnormal 250435288 Active 2015 (Problem was migrated from [employer] on 07/31/19 18) Not Available [facility] [employer] 8 20:40:59 Problem Notes Documentation Provider Name and Address Organization Details Recorded Time Soda Fountain Clerk Consult Note : [facility] [address] [facility] [address]EQJH, PEGGY J (id #[id number], : 1950) [facility] [address] [facility] [address] [place] [address] Encounter Summary - Progress Note Date Printed: [...] received this fax in error, please visit [email or web address] to notify the sender and confirm that the information will be destroyed. If you do not have internet access, please call to notify the sender and confirm that the information will be destroyed. Thank you for your attention and cooperation. [ID:[id number]] Patient Randolph Jin (69yo, F) #[id number] 1950 Patient Demographics: Address [address] [place] [phone] Encounter Notes: Encounter Reason/Date Followup: Essential hypertension 08/18/2019 - 11:00AM - [facility] History of Present Illness patient is [...] suboptimal. Increase metoprolol succinate to 50 mg [id number]: Essential (primary) hypertension ELECTROCARDIOGRAM Ordering provider to read?: Y 2. Body mass index less than 20Z68.1: Body mass index (BMI) 19.9 or less, adult 3. Hyperlipidemia- on ukjhwstbozelA04.5: Hyperlipidemia, unspecified HIGH CHOLESTEROL: CARE INSTRUCTIONS 4. Family history of coronary arteriosclerosis- Continue current medications plus tobacco avoidance. Discussed diet and exercise is currently exercising [facility] 3 times weekly Z82.49: Family history of ischemic heart disease and other diseases of the circulatory system ELECTROCARDIOGRAM Ordering provider to read?: Y Return to Office Milan Mccord MD for Established Patient 15 at [facility] on 10/19/2019 at 11:00 AM to see Su Fairchild MD for Established Patient 15 at [facility] on or around 02/15/2020 Patient Medical [...] Vaccines Vaccine Type Date Amt. Route Site [facility] Lot # Mfr. Exp. Date Date on VIS VIS Given Evs Tech Diphtheria, Tetanus Td (adult) preservative free 03/20/16 Influenza Influenza, injectable, MDCK, quadrivalent 04/20/19 0.5 mL Intramuscular Deltoid, Right [id number] [facility] 12/29/19 02/12/19 04/20/19 Maggie Asher influenza, injectable, quadrivalent 05/01/17 [facility] Electronically Signed by: SU [facility]ILD [facility] 15:00:56 Soda Fountain Clerk Consult Note : [facility] [address] [facility] [address]YRFB, PEGGY J (id #[id number], : 1950) [facility] [address] [facility] [address] [place] [address] Encounter Summary - Progress Note Date Printed: [...] received this fax in error, please visit [email or web address] to notify the sender and confirm that the information will be destroyed. If you do not have internet access, please call to notify the sender and confirm that the information will be destroyed. Thank you for your attention and cooperation. [ID:[id number]] Patient Randolph Jin (69yo, F) #[id number] 1950 Patient Demographics: Address [address] [place] [phone] Encounter Notes: Encounter Reason/Date Followup: Essential hypertension Followup: Family history of coronary arteriosclerosis 02/16/2020 - 11:00AM - [facility] [place] History of Present Illness Patient is a [...] suboptimal. Increase metoprolol succinate to 50 mg [id number]: Essential (primary) hypertension HIGH BLOOD PRESSURE: CARE INSTRUCTIONS LEARNING ABOUT HIGH BLOOD PRESSURE 2. Family history of coronary arteriosclerosis- Continue current medications plus tobacco avoidance. Discussed diet and exercise is currently exercising at a [facility] 3 times weekly Z82.49: Family [...] Fairchild MD for Established Patient 15 at [facility] on or around 04/17/2020 Milan Mccord MD for Established Patient 15 at [facility] on 05/10/2020 at 10:45 AM Patient Medical History: Allergies List Reviewed Allergies NKDA Medications Reviewed Medications NameDate Source Adult Low Dose Aspirin 81 mg tablet,delayed releaseTake 1 tablet(s) every day by oral route., start filled Anika Roy lisinopril 10 mg /13/20 filled [facility] [employer] meloxicam 15 mg tabletTAKE 1 TABLET BY MOUTH EVERY DAY UXSXIL95/12/20 renewed Milan Mccord MD metoprolol succinate ER [...] Vaccines Vaccine Type Date Amt. Route Site [facility] Lot # Mfr. Exp. Date Date on VIS VIS Given Evs Tech Diphtheria, Tetanus Td (adult) preservative free 03/20/16 Influenza Influenza, injectable, MDCK, quadrivalent 04/20/19 0.5 mL Intramuscular Deltoid, Right [id number] [facility] 12/29/19 02/12/19 04/20/19 Maggie Lb influenza, injectable, quadrivalent 05/01/17 [facility] Electronically Signed by: SU FAIRCHILD MD Alem [facility] 02/17/2020 11:14:08 Soda Fountain Clerk Consult Note : [place] [id number] [facility] [address]WHJY, PEGGY Mansoor (id #[id number], : 1950) [facility] [email or web address] [place] [address] Encounter Summary - Progress Note Date Printed: [...] received this fax in error, please visit [email or web address] to notify the sender and confirm that the information will be destroyed. If you do not have internet access, please call to notify the sender and confirm that the information will be destroyed. Thank you for your attention and cooperation. [ID:[id number]] Patient Jin Randolph Max (69yo, F) #[id number] Patient Demographics: Address [address] [place] [address] Encounter Notes: Encounter Reason/Date Result Review Followup: Essential hypertension 04/05/2020 - 10:30AM - [facility] History of Present Illness Patient is 69-year-old [...] Mccord MD for Established Patient 15 at [facility] on 05/10/2020 at 10:45 AM to see Su Fairchild MD for Established Patient 15 at [facility] on or around 10/04/2020 Patient Medical [...] route.02/16/20 filled [facility] lisinopril 10 mg /13/20 filled [facility] meloxicam 15 mg tabletTAKE 1 TABLET BY MOUTH EVERY DAY [id number]/08/20 renewed Milan Mccord MD metoprolol succinate ER [...] Vaccines Vaccine Type Date Amt. Route Site [facility] Lot # [id number]. Exp. Date Date on VIS VIS Given Evs Tech Diphtheria, Tetanus Td (adult) preservative free 03/20/16 Influenza Influenza, injectable, MDCK, quadrivalent 04/20/19 0.5 mL Intramuscular Deltoid, Right [id number] [facility] 12/29/19 02/12/19 04/20/19 Maggie Asher influenza, injectable, quadrivalent 05/01/17 [facility] Electronically Signed by: [facility]ILD [facility] 14:53:13 Procedures Surgical History Date Name Laterality Status Provider Name and Address Organization Details Recorded Time 10/28/19 19 Mini-COG completed [facility] 10/27/2018 11:31:45 10/28/19 19 Fall Risk Screening Tool completed [facility] 10/27/2018 11:31:36 10/28/19 19 PHQ-[address] [facility] 10/27/2018 11:32:12 10/28/19 [address] [facility] 10/27/2018 11:27:49 10/28/19 19 AWE 5-10 Year Plan - Female completed [facility] 10/27/2018 11:31:29 Appendectomy completed Not Available [facility] 08/01/2017 13:55:57 Tonsillectomy completed Not Available [facility] 08/01/2017 13:55:57 Imaging Results Imaging Date Name Status LastModified by Organization Details LastModified Time 08/18/2019 electrocardiogram completed Informa tion not available 08/18/2019 12:20:47 03/22/2020 US, echocardiogram, transthoracic, complete, w/ color flow completed [facility] [address], [place], [address], 03/28/2020 12:06:37 Procedure Notes None recorded. Medical [...] Updated DateTime 0 172.72 cm 19 kg/m2 91766.0 5 g 63 /min 174 mm[Hg] 104 mm[Hg] 170 mm[Hg] 109 mm[Hg] Anika Roy [facility] 0 11:51:45 Date Recorded Body height Body mass index (BMI) Body weight Provider Name and Address Organization Details Last Updated DateTime 11/10/2019 172.72 cm 19.2 kg/m2 13362.64 g Maggie Asher [facility] 11/10/2019 11:20:53 Date Recorded Heart rate Systolic blood pressure Diastolic blood pressure Provider Name and Address Organization Details Last Updated DateTime 11/10/2019 72 /min 140 mm[Hg] 84 mm[Hg] [place] [address] [place], [address] 11/10/2019 11:34:59 Date Recorded Body height Body mass index (BMI) Body weight Heart rate Systolic blood pressure Diastolic blood pressure Systolic blood pressure Diastolic blood pressure Provider Name and Address Organization Details Last Updated DateTime 0 172.72 cm 19.4 kg/m2 48957.3 3 g 51 /min 193 mm[Hg] 96 mm[Hg] 179 mm[Hg] 92 mm[Hg] Thao Hudson [facility] 0 11:57:10 Date Recorded Body height Body mass index (BMI) Body weight Heart rate Provider Name and Address Organization Details Last Updated DateTime 04/05/2020 172.72 cm 18.9 kg/m2 83082.55 g 62 /min Anika Roy [facility] 04/05/2020 11:27:37 Date Recorded Systolic blood pressure Diastolic blood pressure Provider Name and Address Organization Details Last Updated DateTime 04/05/2020 142 mm[Hg] 85 mm[Hg] [place] [address] [place], [address], [facility] 04/05/2020 11:32:29 Date Recorded Body height Body mass index (BMI) Body weight Provider Name and Address Organization Details Last Updated DateTime 05/10/2020 172.72 cm 18.9 kg/m2 99995.45 g Maggie Asher [facility] 05/10/2020 11:22:48 Date Recorded Heart rate Systolic blood pressure Diastolic blood pressure Provider Name and Address Organization Details Last Updated DateTime 05/10/2020 68 /min 130 mm[Hg] 80 mm[Hg] [place] [address] [place], [address] 05/10/2020 11:38:29 Social History Question Answer Notes LastModified by Organizat ion Details LastModified Time Tobacco Smoking Status Former Smoker [facility] 02/11/2018 12:05:49 Do You Have An Advance Directive? No Information not available 02/11/2018 What Is Your Level Of Alcohol Consumption? Occasional Information not available 08/12/2017 Is Blood Transfusion Acceptable In An Emergency? Yes Information not available 02/11/2018 What Is Your Level Of Caffeine Consumption? Moderate Information not available 08/12/2017 How Much Tobacco Do You Chew? None [email or web address] Information not available 02/17/2019 Do You Or [...] Condition Response High Blood Pressure (Hypertension) Y Uterine Fibroids Y GERD Y Osteoporosis Y Gynecological HistoryNo gynecological history recorded. Obstetrics History GPAL:G 0 P 0 0 0 0 Immunizations Vaccine Type Date Status Note Provider Nam e and Address Organization Details Recorded Time Influenza, MDCK, quadrivalent, preservative 9 completed Not Available [facility] 07/18/2019 02:31:47 Td (adult), 5 Lf tetanus toxoid, preservative free, adsorbed 6 completed Not Available [facility] [employer] 07/31/2017 22:05:08 Influenza, split virus, quadrivalent, preservative 7 completed Hortencia Siddiqui [facility] 10/22/2017 11:15:28 Past Encounters Encounter ID Performer Location Encounter Start Date Encounter Closed Date Diagnosis/Indication Diagnosis SNOMED-CT Code Diagnosis ICD10 Code Diagnosis Note [id number] Su Fairchild MD [facility] [address] [place] [address] 08/13/2017 11:27:44 08/13/2017 12:42:28 Essential hypertension 71408169 I10 Well controlled Family his tory of coronary arteriosclerosis 830405692 Z82.49 Continue current medication s plus tobacco avoidance. Discussed diet and exercise is currently [facility] Tobacco de pendence syndrome 10253734 F17.200 Stopped smoking 6 months ago has not had a cigarette since [id number] Milan Mccord MD [facility] [address] [place] [address] 10/22/2017 11:09:29 10/22/2017 11:48:48 Adult health examination 859665608 Z00.00 rtc 6mos follow up visit..laurence l send lab..cont meds Family his tory of coronary arteriosclerosis 106010021 Z82.49 Essential hypertension 90181316 I10 Tobacco de pendence syndrome 90327747 F17.200 Osteoporosis 46953842 M8 1.0 [id number] Su Fairchild MD [facility] [address] [place] [address] 02/11/2018 11:07:29 02/11/2018 12:25:21 Essential hypertension 43788225 I10 Well controlled [id number] Milan Mccord MD [facility] [address] [place] [address] 04/28/2018 11:11:06 04/28/2018 11:41:22 Essential hypertension 26384455 I10 rtc 6mos complete exam..will send lab results..c ont meds Tobacco de pendence syndrome 78952402 F17.200 Discussed the need to stop smoking Pain in ri ght sacroiliac joint 5593047007 6567879 M53.3 Ibuprofen twice a day for 1-2 weeks. If no improvemen t see Dr. Santamaria orthopedic s again Disorder o f breast implant 716539506 T85.9XXA Plastic surgery consultati on Dr. Jennings [id number] Su Fairchild MD [facility] [address] [place] [address] 08/19/2018 10:49:20 08/19/2018 11:54:41 Essential hypertension 38910029 I10 Well controlled Family his tory of coronary arteriosclerosis 597496152 Z82.49 Continue current medication s plus tobacco avoidance. Discussed diet and exercise is currently [facility] 3 times weekly [id number] MD ROBINSON Tre[address] [place] [address] 10/27/2018 11:24:06 10/27/2018 11:51:03 Long-term drug therapy 625198727 Z79.899 Adult heal th examination 995006035 Z00.00 rtc 6mos follow up visit..laurence l send lab..cont meds Low back pain 796604599 M54.5 Referred back to orthopedic s Dr. Santamaria Essential hypertension 89237202 I10 rtc 6mos follow-up exam..will send lab results..c ont meds Taking hig h risk medication 0925353636 92787 Z91.89 [id number] Milan Mccord MD [address] [place] [address] 02/06/2019 14:14:18 02/06/2019 14:46:45 Lumbar radiculopathy 426664903 M54.16 RTC 5 days after Celebrex generic 200 mg daily. AP pelvis x-ray on return. Medrol Dosepak from Dr. Santamaria previously did not help. Gabapentin from the emergency room did not help. Peripheral vascular disease 142333806 I73.9 Has an appointmen t to see her cardiologi st Dr. Fairchild in 10 days. Made her a copy of the CT scan which reveals the right iliac artery stenosis. Essential hypertension 50683670 I10 rtc 6mos follow-up exam..will send lab results..c ont meds Taking hig h risk medication 8228463757 86139 Z91.89 [id number] MD AMANDA Tre[address] [place] [address] 02/10/2019 14:05:33 02/10/2019 14:54:55 Lumbar radiculopathy 266700880 M54.16 Pelvis x-ray does not show much hip arthritis. We will set her up for an MRI of the lumbar spine, call the next day for results. May need spine consultati on. Continue meloxicam 15 mg daily as needed. Essential hypertension 78372678 I10 rtc 6mos follow-up exam..will send lab results..c ont meds [id number] Su Fairchild MD [facility] [address] [place] [address] 02/17/2019 11:01:16 02/17/2019 13:19:47 Essential hypertension 82454701 I10 Well controlled Peripheral vascular disease 723808384 I73.9 right iliac disease on recent CTA but without claudicati on and with palpable dorsal pedal and posterior tibial pulses. Would add rosuvastat in and continue low-dose aspirin Low back pain 891160595 M54.5 right lower back pain which radiates into the right lateral hip area. 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 [id number] Milan Mccord MD [facility] [address] [place] [address] 04/20/2019 11:09:50 04/20/2019 11:40:51 Essential hypertension 74148573 I10 rtc 6mos complete exam..will send lab results..c ont meds Tobacco de pendence syndrome 69916251 F17.200 Discussed the need to stop smoking Chronic low back pain 27 0724275 M54.5 Continue follow-up with mortgage specialist Long-term drug therapy 133861577 Z79.899 Administra tion of influenza vaccine 11393952 Z23 [id number] Su Fairchild MD [facility] [address] [place] [address] 08/18/2019 11:27:41 08/18/2019 12:06:38 Essential hypertension 41246009 I10 suboptimal . Increase metoprolol succinate to 50 mg daily Body mass index less than 20 683820980 Z68.1 Hyperlipidemia 68317502 E78.5 on rosuvastat in Family his tory of coronary arteriosclerosis 040935372 Z82.49 Continue current medication s plus tobacco avoidance. Discussed diet and exercise is currently [facility] times weekly [id number] Milan Mccord MD [facility] [address] [place] [address] 11/10/2019 11:05:50 11/10/2019 11:40:46 Adult health examination 923387441 Z00.00 rtc 6mos follow up visit..laurence l send lab..cont meds Essential hypertension 28636182 I10 rtc 6mos follow-up exam..will send lab results..c ont meds Family his tory of coronary arteriosclerosis 466563590 Z82.49 Tobacco de pendence syndrome 53425669 F17.200 Discussed the need to stop smoking Chronic low back pain 27 3781829 M54.5 Continue follow-up with mortgage specialist [id number] Su Fairchild MD [place] [address] [place] [address] 02/16/2020 11:43:48 02/16/2020 12:06:54 Essential hypertension 28428748 I10 suboptimal . Increase metoprolol succinate to 50 mg daily Family his tory of coronary arteriosclerosis 437644452 Z82.49 Continue current medication s plus tobacco avoidance. Discussed diet and exercise is currently exercising at a [facility] 3 times weekly Aortic valve stenosis 60 481795 I35.0 Has heart murmur consistent with aortic stenosis with no previous history of same. Needs echocardio gram [id number] Su Fairchild MD [facility] [address] [place], [place] [address],[address] [place] [address] 04/05/2020 11:09:23 04/05/2020 11:41:06 Essential hypertension 09476733 I10 Improved since medication change Aortic dung ve sclerosis 98381359 I35.8 Follow with yearly echoes [id number] Milan Mccord MD [place] [address] [place] [address] 05/10/2020 11:14:19 05/10/2020 11:37:23 Essential hypertension 07656346 I10 rtc 6mos complete exam..will send lab results..c ont meds Tobacco de pendence syndrome 12588886 F17.200 Discussed the need to stop smoking Hyperlipidemia 59339523 E78.5 Will send lab and advise. Taking hig h risk medication 3913835428 25792 Z91.89 Health Concerns Section Related Observation LastModified by Organization Detai ls LastModified Time None Recorded Concern Status LastModified by Organization Details LastModified Time None Recorded Advance Directives Directive N: Payers Encounter Date Sequence Insurance Name Policy Number Policy Choi Covered Member ID Choi Member ID Guarantor Name 08/18/2019 1 [place] Randolph J Jin [id number] Randolph J Jin 08/18/2019 2 [employer] (MEDICARE SUPPLEMENT) Randolph J Jin [id number] Randolph J Jin 11/10/2019 1 [place] J Jin [id number] Randolph J Jin 11/10/2019 1 [facility] Nikolas Jin [id number] Randolph J Jin 02/16/2020 1 [place] J Jin [id number] Randolph J Jin 02/16/2020 2 [employer] (MEDICARE SUPPLEMENT) Randolph J Jin [id number] Randolph J Jin 04/05/2020 1 [place] Randolph J Jin [id number] Randolph J Jin 04/05/2020 2 [employer] (MEDICARE SUPPLEMENT) Randolph J Jin [id number] Randolph J Jin 05/10/2020 1 [place] Randolph J Jin [id number] Randolph J Jin 05/10/2020 2 [employer] (MEDICARE SUPPLEMENT) Randolph J Jin [id number] Randolph J Jin Notes Date Note Type [...] of 25 [place] [address] [place], [address], [facility] 08/18/2019 12:02:57 0 text/html For her exam. Feels well. Has cut back on smoking but needs to quit altogether and this was discussed. Still needs colon cancer screening and I offered colonoscopy or Cologuard but she wants to hold off on both for now. Taking her medications okay, [place] [address] [place], [address], [facility] 11/10/2019 14:59:53 0 text/html Patient is a [...] are going to [place] [address] [place], [address], [facility] 02/16/2020 12:02:46 0 text/html Patient is 69-year-old [...] a year [place] [address] [place], [address], [facility] 04/05/2020 11:35:11 0 text/html Follow-up visit, doing well, working. Taking her medications okay. Needs lab[place] [address] [place], [address], [facility] 05/10/2020 22:01:44 OBGyn Episode No OBEpisode recorded.
--- OUTSIDE RECORDS SUMMARY | 2024-08-25 18:44 | XMS_ITS | Data Portability ---
Author Organization [place] [facility] [place] [employer], Main Office Address [address] [place] [address] Assessment No assessment recorded. Plan of Treatment Reminders Order Date Submit Date Provider Last Modified By Organization Details Last Modified Time Details Appointments None recorded. Lab HbA1c (hemoglobin A1c), blood 2022 023 SONYA Ravi, 2022 [address], [address], [place], [address], 3 09:32:51 CBC w/ auto diff 2022 023 SONYA Ravi, 2022 Sujey [address]if[address]es, [address], [place], [address], 3 09:32:50 hepatic function panel, serum 2022 023 [email or web address] [facility], 2022 Sujey Sifuentes, [address], [place], [address], 3 13:57:58 BMP, serum or plasma 2022 023 SONYA Ravi, 2022 Sujey [address], [address], [place], [address], 3 09:32:51 TSH + free T4, serum 2022 023 SONYA Ravi, 2022 Sujey [address], [address], [place], [address], 3 09:32:50 vitamin B12 + folate, serum or blood 2022 023 SONYA Ravi, 2022 Su[address], [address], [place], [address], 3 09:32:51 urinalysis complete, reflex culture 2022 [facility], 2022 Su[address], [address], [place], [address], 3 09:32:50 lipid panel, serum 2022 [facility], 2022 Suj[address], [address], [place], [address], 3 09:32:51 Referral None recorded. Procedures None recorded. Surgeries None recorded. Imaging LDCT, chest, for lung cancer screening [address] (Imaging), [address] [facility] [address], [place], [address], 3 16:05:37 US, abdominal aorta [address] (Imaging), [address], [place], [address], 4 15:17:25 US, echocardiog kirby, transthorac ic, complete, w/ color flow 2022 023 [facility] (Cardiology & Emg), [address], [place], [address], 3 15:50:29 US, duplex, carotid artery [address] (Imaging), [address], [place], [address], 3 16:05:37 Medication Orders None recorded. Patient TargetsNo targets recorded. Patient InstructionsNo instructions recorded. Reason for Referral None Reported. Results Created Date Observation Date Name Description Value Unit Range Abnormal Flag Note LastModifiedBy Organization Detail LastModifiedTime 05/13/20 23 05/10/2023 US, duple x, carot id arter y No observ ation record ed. [address] (Cardiology & Emg) [address] [facility] [address], [place], [address], 07/09/2023 12:34:52 05/13/2005/10/2023 LDCT, chest , for lung cance r scree khai No observ ation record ed. [address] (Cardiology & Emg) [address] [facility] [address], [place], [address], 07/09/2023 12:34:53 05/16/2005/07/2023 US, echoc ardio gram, trans thora cic, compl ete, w/ color flow No observ ation record ed. [place] [id number] [facility] [address] [facility], [place], [address], 07/09/2023 12:34:53 Result Notes None recorded. Problems Name Problem SNOMED Code Status Onset Date Resolution Date Notes Provider Name and Address Organization Details Recorded Time Heart murmur 59739696 Active 2022 CORRY Ahumada [address], [address], [place], [address], [employer] 3 11:56:34 Hyperlipidemia 07961019 Active 2022 CORRY Ahumada [address], [address], [place], [address], [employer] 3 11:56:42 Benign essential hypertension 7627106 Active 2022 CORRY Ahumada [address], [address], [place], [address], [employer] 3 11:56:45 Smoker 93639851 Active 2022 CORRY Ahumada [address], [address], [place], [address], [employer] 3 11:57:49 Blood glucose outside reference range 596370151 Active 2022 CORRY Ahumada [address], [address], [place], [address], [facility] [employer] [facility] [employer] [facility] 3 11:58:47 Nicotine dependence 29295417 Active 2022 Viviana Duenas, RMA null, [facility] [employer] [facility] 3 09:43:36 Generalized anxiety disorder 64680661 Active 2022 CORRY Ahumada [address], [address], [place], [address], [facility] [employer] [facility] 3 15:24:01 Problem Notes None recorded. Procedures Surgical History Date Name Laterality Status Provider Name and Address Organization Details Recorded Time appendectomy completed Rimma Leal RN [facility] [employer] [facility] 04/05/2023 10:44:27 delivery completed Rimma Leal RN [facility] [employer] [facility] 04/05/2023 10:44:39 Imaging Results Imaging Date Name Status LastModified by Organiz ation Details LastModified Time 05/10/2023 US, duplex, carotid artery completed [address] (Cardiology & Emg) [address] [place] [address], [address], 07/09/2023 12:34:52 05/10/2023 LDCT, chest, for lung cancer screening completed [address] (Cardiology & Emg) [address] [place] [address], [address], 07/09/2023 12:34:53 05/07/2023 US, echocardiogram , transthoracic, complete, w/ color flow completed [address], [address], 07/09/2023 12:34:53 Procedure Notes None recorded. Medical [...] Organization Details Last Updated DateTime 172.72 cm 11199.1 6 g 97.3 [degF] 84 /min 98 % 98 % 112 mm[Hg] 70 mm[Hg] Rimma Leal RN [facility] [employer] 11:12:27 Date Recorded Body mass index (BMI) Provider Name and Address Organization Details Last Updated DateTime 04/05/2023 16.7 kg/m2 CORRY Ahumada [address] [facility] [address], [address], [employer] 04/05/2023 11:24:57 Social History Question Answer Notes LastModified by Organizat ion Details LastModified Time Tobacco Smoking Status Current Some Day Smoker Rimma Leal RN null, [employer] 04/05/2023 11:13:26 What Is Your Level Of Alcohol Consumption? None [email or web address] Information not available 04/05/2023 What Is Your Level Of Caffeine Consumption? Moderate [email or web address] Information not available 04/05/2023 In The 14 Days Before Symptom Onset, Have You Had Close Contact With A Laboratory-confirm ed COVID-19 While That Case Was Ill? No [email or web address] Information n ot available 04/05/2023 In The 14 Days Before Symptom Onset, Have You Had Close Contact With A Person Who Is Under Investigation For COVID-19 While That Person Was Ill? No [email or web address] Information not available 04/05/2023 Are You Currently Employed? No [email or web address] Information not available 04/05/2023 What Type Of Diet Are You Following? REGULAR [email or web address] Information n ot available 04/05/2023 How Many Children Do You Have? 2 [email or web address] Information not available 04/05/2023 What Is Your Relationship Status? [email or web address] Information not available 04/05/2023 Do You Use Your Seat Belt Or Car Seat Routinely? Yes [email or web address] Information not available 04/05/2023 Do You Have Smoke And Carbon Monoxide Detectors In Your Home? Yes [email or web address] Information not available 04/05/2023 At What Age Did You Start Smoking Tobacco? 14 [email or web address] Information not available 04/05/2023 Do You Feel Stressed (tense, Restless, Nervous, Or Anxious, Or Unable To Sleep At Night)? [id number] [email or web address] Information not available 04/05/2023 Do You Use Any Illicit Or Recreational Drugs? No [email or web address] Information not available 04/05/2023 Do You Use Sunscreen Routinely? Yes [email or web address] Information not available 04/05/2023 Have You Recently Traveled Abroad? No [email or web address] Information not available 04/05/2023 Do You Have Any Dietary Restrictions? No [email or web address] Information not available 04/05/2023 Sex: Unknown Functional Status Question Answer Note LastModified by [employer] Details LastModified Time What is your exercise level? Occasional [email or web address] Information not available 04/05/2023 Mental Status None recorded. Family History Nothing Reported. Medical History No medical history recorded. Gynecological HistoryNo gynecological history recorded. Obstetrics History GPAL:G 0 P 0 0 0 0 Past Encounters Encounter ID Performer Location Encounter Start Date Encounter Closed Date Diagnosis/Indication Diagnosis SNOMED-CT Code Diagnosis ICD10 Code Diagnosis Note [id number] CORRY Ahumada [facility] [place] [address] [place] [address] 04/05/2023 10:41:24 04/05/2023 11:59:39 Heart murmur 01127862 R01.1 Check complete echo doppler with murmur noted on exam and check u/s duplex carotid arteries. Hyperlipidemia 49853199 E78.5 on crestor 5mg daily and due for fasting lipids Benign ess ential hypertension 1544513 I10 very stable on amlodipine 5mg daily. Smoker 32079987 F17.200 send for LDCT screening of chest and U/S AA. Long-term drug therapy 103698405 Z79.899 all routine screening labs ordered. Blood gluc ose outside reference range 851843749 R73.09 screening a1c ordered. Health Concerns Section Related Observation LastModified by Organization Detai ls LastModified Time None Recorded Concern Status LastModified by Organization Details LastModified Time None Recorded Advance Directives Directive None Recorded Payers Encounter Date Sequence Insurance Name Policy Number Policy Choi Covered Member ID Choi Member ID Guarantor Name 04/05/2023 1 [facility] (MEDICARE REPLACEMENT/A DVANTAGE - PPO) [id number] Yuliya Harris [id number] Yuliya Harris Notes Date Note Type Note Provider Name and Address Organization Details Recorded Time 3 text/htm l Generic HPI TemplateReported bypatient.Notes:pt also hx of smoking. family would like her cognition evaluation.HyperlipidemiaRep orted bypatient.Notes:stable on medsHypertensionReported bypatient.Notes:stable on meds new pt appt CORRY Ahumada [address] [facility] [address], [place], [address], [place] [employer] [facility] [employer] 04/30/2023 21:11:28 OBGyn Episode No OBEpisode recorded.
--- OUTSIDE RECORDS SUMMARY | 2024-08-25 18:44 | XMS_ITS | Data Portability ---
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 Plan of Treatment Reminders Order Date Submit Date Provider Last Modified By Organization Details Last Modified Time Details Appointments None recorded. Lab None recorded. Referral None recorded. Procedures None recorded. Surgeries None recorded. Imaging XR, lumbar spine 2017 018 SONYA In-Office Order, Internal Use Only DO Not Attach Compendium DO Not Attach Compendium, Do Not Delete/merge, [address] 9 05:00:53 Medication Orders hydrocodon e 7.5 mg-acetami nophen 300 mg tablet 2017 018 [employer] [facility]32446, [address] [place], [place], [id number], 9 15:25:39 cyclobenza balwinder 10 mg tablet 2017 018 [id number], [address], [place], [id number], 8 15:54:30 hydrocodon e 7.5 mg-acetami nophen 325 mg tablet 2017 018 [facility]96261, [address], [place], [id number], 8 15:54:25 Patient TargetsNo targets recorded. Patient Instructions Encounter Date Encounter Id Patient Instructions Last Modified By Organization Details Last Modified Time 10/16/2017 [id number] back care and preventing injuries: care instructions plindy Not available 10/16/2017 15:54:25 getting back to normal after low back pain: care instructions plindy Not available 10/16/2017 15:54:25 learning about relief for back pain plindy Not available 10/16/2017 15:54:25 The patient will start a course of medications and return in 1 month for follow up with xrays. 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 Procedures Surgical History Date Name Laterality Status Provider Name and Address Organization Details Recorded Time 3 Plastic Surgery completed Emma Shepherd [facility] 10/16/2017 11:18:59 Other completed Emma Shepherd [facility] 10/16/2017 11:18:59 Imaging Results Imaging [...] Updated DateTime 10/16/2017 172.72 cm 20.5 kg/m2 49112.97 alejandro Emma VELÁZQUEZ [facility] 10/16/2017 11:18:36 Date Recorded Body height Body mass index (BMI) Body weight Provider Name and Address Organization Details Last Updated DateTime 11/12/2017 172.72 cm 20.5 kg/m2 88810.97 alejandro Emma VELÁZQUEZ [facility] 11/12/2017 14:07:44 Date Recorded Body height Body mass index (BMI) Body weight Provider Name and Address Organization Details Last Updated DateTime 01/14/2019 172.72 cm 20.5 kg/m2 06506.97 alejandro VELÁZQUEZ [facility] 01/14/2019 11:55:02 Social History Question Answer Notes LastModified by Organizat ion Details LastModified Time Tobacco Smoking Status Current Some Day Smoker Emma espino [facility] 10/16/2017 11:18:53 What Is Your [...] Trouble N Control Pills N Hernia N Blood Clots N Depression N Lung Disease N Nervous Trouble or Depression N Pacemaker N Frequent Sore Throat N Menstrual Periods (Date of Last) N Gallbladder Trouble or Gallstones N Trouble Hearing or Frequent Ear Infectio ns N Easy Bruising or Bleeding Y Recent Change in Bowel Movements N Trouble Seeing or Pain in the Eyes N Arthritis or Rheumatism N Anxiety Disorder N Blood in Urine N Stomach, Liver or Intestinal Trouble N Bloody Stools or Black Tarry Stools N Epilepsy, Fits, or Blackouts N Cancer N Stroke N Leg or Foot Ulcers N Swollen Glands in Neck, Armpits, or Groi n N Shortness of Breath N Painful or Frequent Urination N Irregular Vaginal Bleeding N Liver Disease N Rheumatoid Arthritis N Hay Fever or Asthma N Kidney Disease N Chronic Cough N Yellow Jaundice N Heart Problems N Frequent Headaches N Migraines N Thyroid Problems N Goiter N Anemia N Heart Attack (MN) N Ulcers N A Trick Joint N Diabetes N [...] SNOMED-CT Code Diagnosis ICD10 Code Diagnosis Note [id number] Elijah Santamaria MD [facility] [address] [place] [address], [address] [place] [address] 10/16/2017 10:53:57 10/16/2017 11:41:44 Low back pain 454829663 M54.5 Pathologic al fracture of vertebra 599164779 M48.56XA [id number] Elijah Santamaria MD [facility] [address] [place] [address], [address] [place] [address] 11/12/2017 13:31:30 11/12/2017 14:45:19 Low back pain 317214688 M54.5 Pathologic al fracture of vertebra 108287082 M48.56XD [id number] Ledy Gong [facility] [address], [address] [address] 01/19/2019 11:50:55 01/19/2019 11:59:04 [id number] Ledy Gong [facility] [address], [address] [address] 01/26/2019 12:15:17 01/26/2019 12:16:31 Health Concerns Section Related Observation LastModified by Organization Detai ls LastModified Time None Recorded Concern Status LastModified by Organization Details LastModified Time None Recorded Advance Directives Directive None Recorded Payers Encounter Date Sequence Insurance Name Policy Number Policy Choi Covered Member ID Choi Member ID Guarantor Name 10/16/2017 1 [place] Yuliya J Harris [id number] Yuliya Harris 10/16/2017 [employer] (MEDICARE DME [facility] C) Yuliya J Harris [id number] Yuliya Harris 11/12/2017 1 [place] Yuliya J Harris [id number] Yuliya Harris 11/12/2017 [employer] (MEDICARE DME [place]ION C) Yuliya J Harris [id number] Yuliya Harris 01/19/2019 1 [place] Yuliya J Harris [id number] Yuliya Harris 01/19/2019 2 Viro[employer] (MEDICARE SUPPLEMENT) Yuliya J Harris [id number] Yuliya Harris 01/26/2019 1 [place] Yuliya J Harris [id number] Yuliya Harris 01/26/2019 2 Virool (MEDICARE SUPPLEMENT) Yuliya J Harris [id number] Yuliya Harris Notes Date Note Type Note [...] appears within normal limits. Elijah Santamaria MD [address] [place] [address], [address], [address], [facility] 04/23/2018 16:34:29 11/12/2017 text/html Follow-UpReporte d bypatient.Are you working?not at all How are you feeling?same (LBP) Previous PT:none Previous Injections:none Change in symptoms:no Do you need a work excuse?no Do you need a prescription renewal?no Elijah Santamaria MD [address] [place] [address], [address], [address], [facility] 09/08/2018 15:25:44 OBGyn Episode No OBEpisode recorded.
== END 2024-08-25 16:33 | disposition home or self-care (01) ==
LOC: ANHIMG 16:34
PROVIDERS: PCP Physician Assistant; Visit Provider Physician Assistant
DX: Z12.2 Encounter for screening for malignant neoplasm of respiratory organs (principal); Z87.891 Personal history of nicotine dependence
CPT/HCPCS: 71271

== ENCOUNTER 2024-09-04 12:40 | Outpatient (CLI) | payer MEDICARE, SELFPAY ==
--- NOTE | ~2024-09-04 | MR_ITS ---
EXAMINATION: MR brain/brain stem wo con DATE: 09/04/2024 14:16 INDICATION: Dizziness. TECHNIQUE: Magnetic resonance imaging (MRI) of the brain and brainstem was performed without intraven ous contrast. COMPARISON: None. FINDINGS: There is no intracranial hemorrhage, acute infarction, or abnormal intracranial mass lesion . There are scattered areas of nonspecific increased T2-weighted signal intensity in the cerebral whi te matter and luis a. The ventricles are normal in size. The ventricles are normal in size. The orbits are normal. The paranasal sinuses are clear. There are small bilateral mastoid effusions. IMPRESSION: 1. Moderate nonspecific cerebral white matter disease and pontine disease, which likely represents ch ronic small vessel ischemic disease. Reviewed, dictated and finalized at location A. TRICAL PROSPECTING OPERATOR IMPRESSION: 1. Moderate nonspecific cerebral white matter disease and pontine disease, whic h likely represents chronic small vessel ischemic disease.
--- NOTE | ~2024-09-04 | US_ITS ---
EXAMINATION: US carotid duplex BI DATE: 09/04/2024 13:34 INDICATION: Carotid bruit. TECHNIQUE: Grayscale, color Doppler, and pulsed Doppler images of the cervical carotid arteries were obtained. The degree of vessel stenosis is placed in one of the following categories: normal, <50%, 5 0-69%, >=70% but less than near-occlusion, near-occlusion, or total occlusion. Note that percent sten osis relative to normal distal artery lumen diameter is indirectly measured from velocity measurement s as described by Chance, et al. Radiology 2003; 229:340-346. COMPARISON: Ultrasound 05/10/2023 FINDINGS: RIGHT: The right common carotid artery (CCA) peak systolic velocity (PSV) is 50 cm/s. The right internal car otid artery (ICA) PSV is 49 cm/s. The right ICA end-diastolic velocity (EDV) is 17 cm/s. The right IC A/CCA PSV ratio is 1.0. Grayscale and color Doppler images yield an estimate of <50% diameter reducti on from plaque in the ICA. There is antegrade flow in the right vertebral artery. LEFT: The left CCA PSV is 49 cm/s. The left ICA PSV is 44 cm/s. The left ICA EDV is 15 cm/s. The left ICA/C CA PSV ratio is 0.9. Grayscale and color Doppler images yield an estimate of <50% diameter reduction from plaque in the ICA. There is antegrade flow in the left vertebral artery. IMPRESSION: 1. <50% stenosis in the right internal carotid artery. 2. <50% stenosis in the left internal carotid artery. Reviewed, dictated and finalized at location A. CROP SUPERVISOR
--- NOTE | ~2024-09-04 | MR_ITS ---
EXAMINATION: MR lumbar spine wo con DATE: 09/04/2024 13:58 INDICATION: Compression fracture of lumbar spine. TECHNIQUE: Magnetic resonance imaging (MRI) of the lumbar spine was performed without intravenous con trast. Sequences included sagittal T2-weighted FSE, sagittal T2-weighted FS FSE, sagittal T1-weighted FSE, and axial T2-weighted FSE. COMPARISON: Lumbar spine radiograph 08/07/24 FINDINGS: There is a burst fracture of L1 with 3/5 loss of height and retropulsion of bone 2 mm into central spinal canal. There is 2 mm anterolisthesis of L3 on L4. There is mildly decreased disc heigh t at L3-L4 and L4-L5. The distal spinal cord signal intensity is normal. The conus medullaris is at L 1. There is a 3.9 cm cyst in left kidney. The following disc levels are specifically discussed: L1-L2: The disc does not extend beyond the endplate margin. There is severe bilateral facet joint ost eoarthritis. There is no neural foraminal stenosis. There is no central canal stenosis. L2-L3: The disc is bulging and has an annular fissure. There is severe bilateral facet joint osteoart hritis. There is moderate bilateral neural foraminal stenosis. There is mild central canal stenosis. L3-L4: The disc is bulging. There is severe bilateral facet joint osteoarthritis. There is mild bilat eral neural foraminal stenosis. There is mild central canal stenosis. L4-L5: The disc is bulging and has an annular fissure. There is severe bilateral facet joint osteoart hritis. There is moderate right and mild left neural foraminal stenosis. There is moderate central ca nal stenosis. L5-S1: The disc is bulging and has an annular fissure. There is severe right and moderate left facet joint osteoarthritis. There is mild bilateral neural foraminal stenosis. There is mild central canal stenosis. IMPRESSION: 1. Moderate right neural foraminal stenosis at L4-L5. Otherwise mild lumbar spondylosis. Reviewed, dictated and finalized at location A. MAKING SUPERVISOR IMPRESSION: 1. Moderate right neural foraminal stenosis at L4-L5. Otherwise mild lumbar spo ndylosis.
--- OUTSIDE RECORDS SUMMARY | 2024-09-04 13:00 | XMS_ITS | Data Portability ---
Author Organization RUBI RAJSharon Caceres Address [address] [facility], [place] [address] Care Team Providers Care Ladle Liner Helper Name Role Phone BELIA HAIRSTON Primary Care Provider Unavailab le Assessment Encounter Date Assessment Date Assessment LastModified by Organization Details LastModified Time 02/14/2024 02/14/2024 Pt declines mammogram and colonoscopy screening. Not available 02/14/2024 16:16:53 08/14/2024 08/14/2024 Pt declines mammogram and colonoscopy screening. Not available 08/14/2024 12:12:57 Plan of Treatment Reminders Order Date Submit Date Provider Last Modified By Organization Details Last Modified Time Details Appointments ANY 15 2024 03:15P M CORRY Ahumada Not available Not available Not available Lab vitami n B12 + folate , serum or blood 2024 025 [facility], [address], [place], [address], 09/04/2024 11:21:27 hepati c functi on panel, serum 2024 025 [facility], [address], [place], [address], 09/04/2024 11:21:44 BMP, serum or plasma 2024 025 [facility], [address], [place], [address], 09/04/2024 11:21:55 CBC w/ auto diff 2024 025 [facility], [address], [place], [address], 09/04/2024 11:22:04 lipid panel, serum 2024 025 [facility], [address], [place], [address], 09/04/2024 11:21:35 hepati c functi on panel, serum 2023 024 [facility], [address], [place], [address], 02/25/2024 12:07:25 BMP, serum or plasma 2023 024 [facility], [address], [place], [address], 02/25/2024 12:07:39 CBC w/ auto diff 2023 024 [facility], [address], [place], [address], 02/25/2024 12:07:43 TSH + free T4, serum 2023 024 [facility], [address], [place], [address], 02/25/2024 07:40:37 vitami n B12 + folate , serum or blood 2023 024 [facility], [address], [place], [address], 02/25/2024 12:07:54 lipid panel, serum 2023 024 [facility], [address], [place], [address], 02/25/2024 07:40:37 Referral pain manage ment referr al - PCP orderi ng MRI lumbar spine to have prior to pain med visit. 2024 [facility], [address], [address], [place], [address], 08/14/2024 13:25:19 Procedures None record ed. Surgeries None record ed. Imaging MRI, lumbar spine, w/o contra st 2024 [facility], [address], [place], [address], 09/04/2024 11:22:26 LDCT, chest, for lung cancer screen ing 2024 [facility] ([facility]), [address] [facility], [place], [address], 08/25/2024 18:19:57 MRI, brain, w/wo contra st 2024 [facility], [address], [place], [address], 09/04/2024 11:22:32 US, duplex , caroti d artery 2024 [facility] ([facility]), [address] [facility] [facility], [place], [address], 08/26/2024 16:15:38 US, echoca rdiogr am, transt horaci c, comple te, w/ color flow 2024 [facility] ([facility]iology [facility]), [address], [place], [address], 08/26/2024 16:15:39 Medication Orders sertra line 50 mg tablet 2023 [facility][id number], [address], [place], [place], [id number], 08/14/2024 12:05:13 amlodi pine 5 mg tablet 2023 024 [facility][id number], [address], [place], [place], [id number], 08/14/2024 12:04:29 rosuva statin 5 mg tablet 2023 024 [facility] #[id number], [address], [place], [place], [id number], 08/14/2024 12:04:35 Patient TargetsNo targets recorded. Patient InstructionsNo instructions recorded. Reason for Referral Pain Management Referral for Compression fracture of lumbar spine PCP ordering MRI lumbar spine to have prior to pain med visit. Referring Physician: Belia Hairston, Internal Medicine, Encounter Date: 08/14/2024 Results Created Date Observation Date Name Description Value Unit Range Abnormal Flag Note LastModifiedBy Organization Detail LastModifiedTime 08/08/19 25 08/07/2024 XR, lumbo sacra l spine , 2 or 3 view No observ ation record ed. [email or web address], [place], [address], 08/30/2024 16:51:19 08/25/19 25 08/25/2024 LDCT, chest , for lung cance r scree khai No observ ation record ed. [address], [place], [address], 08/26/2024 16:04:26 Result Notes None recorded. Problems Name Problem SNOMED Code Status Onset Date Resolution Date Notes Provider Name and Address Organization Details Recorded Time Hyperlipidemia 53136505 Active 2023 RUBI Abarca 4 16:18:43 Smoker 98370535 Active 2023 RUBI Abarca SINicki 16:18:51 Benign essential hypertension 8414780 Active 2023 Viviana Duenas null, [place] - [facility] 4 16:18:59 Heart murmur 97938186 Active 2023 Viviana Duenas null, [place] [facility] 4 16:19:07 Long-term drug therapy Active 2023 CORRY Ahumada Attn: Kaleigh allen,[address] [place], [place], [address] [place] [address] 2, [facility] 4 23:32:44 Depressive disorder 01818826 Active 2023 CORRY Ahumada Attn: Kaleigh allen,[address] [place], [place], [address] [place] [address] 2, [facility] 4 23:32:54 Body mass index less than 20 895096610 Active 2023 CORRY Ahumada Attn: Kaleigh allen,[address] [place], [place], [address] [place] [address] 2, [facility] 4 23:33:23 Dizziness 300547951 Active 2024 CORRY Ahumada Attn: Kaleigh allen,[address] [place], [place], [address] [place] [address] 2, [facility] 5 12:31:12 Compression fracture of lumbar spine 390668176 Active 2024 CORRY Ahumada Attn: Kaleigh allen,[address] [place], [place], [address] [place] [address] 2, [facility] 5 12:31:14 Carotid bruit 320267823 Active 2024 CORRY Ahumada Attn: Kaleigh allen,[address] [place], [place], [address] [place] [address] 2, [facility] 5 16:55:37 Problem Notes None recorded. Procedures Surgical History Date Name Laterality Status Provider Name and Address Organization Details Recorded Time section completed Viviana Duenas [place] - [facility] 09/02/2023 16:20:55 Appendectomy completed Viviana Duenas [place] - [facility] 09/02/2023 16:21:02 Imaging Results Imaging Date Name Status LastModified by Organiz ation Details LastModified Time 08/07/2024 XR, lumbosacral spine, 2 or 3 view completed [email or web address] [address], [place], [address], 08/30/2024 16:51:19 08/25/2024 LDCT, chest, for lung cancer screening completed [facility] [address] [facility], [place], [address], 08/26/2024 16:04:26 Procedure Notes None recorded. Medical Equipment None [...] Updated DateTime 4 170.18 cm 18.8 kg/m2 46762.0 8 g 78 /min 99 % 99 % 142 mm[Hg] 68 mm[Hg] Meenakshi Childs MA [place] - [facility] 15:54:00 Date Recorded Respiratory rate Systolic blood pressure Diastolic blood pressure Provider Name and Address Organization Details Last Updated DateTime 02/14/2024 18 /min 134 mm[Hg] 80 mm[Hg] CORRY Ahumada Attn: Accounting, [address] [place], [address], [place] - [facility] 02/14/2024 16:11:49 Date Recorded Body height Body mass index (BMI) Body weight Oxygen saturation Oxygen saturation in Arterial blood by Pulse oximetry Heart rate Provider Name and Address Organization Details Last Updated DateTime 170.18 cm 19.6 kg/m2 12182.0 5 g 98 % 98 % 62 /min Duglas Salazar MA [facility] 12:10:07 Date Recorded Respiratory rate Systolic blood pressure Diastolic blood pressure Provider Name and Address Organization Details Last Updated DateTime 08/14/2024 16 /min 138 mm[Hg] 80 mm[Hg] CORRY Ahumada Attn: Accounting, [address], [place], [address], [facility] 08/14/2024 12:44:07 Social History Question Answer Notes LastModified by Organizat ion Details LastModified Time Tobacco Smoking Status Current Every Day Smoker Viviana Duenas kenzie, [facility] 09/02/2023 16:20:20 Do You Have An Advance Directive? Yes Daughter Information not available 08/14/2024 What Is Your Level Of Alcohol Consumption? None [email or web address] Information not available 09/02/2023 Are You Blind Or Do You Have Difficulty Seeing? Yes Glasses Information not available 08/14/2024 What Is Your Level Of Caffeine Consumption? Moderate [email or web address] Information not available 09/02/2023 In The 14 Days Before Symptom Onset, Have You Had Close Contact With A Laboratory-confir med COVID-19 While That Case Was Ill? No [email or web address] Information not available 09/02/2023 In The 14 Days Before Symptom Onset, Have You Had Close Contact With A Person Who Is Under Investigation For COVID-19 While That Person Was Ill? No [email or web address] Information not available 09/02/2023 Have You Been To An Area Known To Be High Risk For COVID-19? No [email or web address] Information not available 09/02/2023 Are You Currently Employed? No [email or web address] Information not available 09/02/2023 Are You Deaf Or Do You Have Serious Difficulty Hearing? No Information not available 08/14/2024 What Type Of Diet Are You Following? REGULAR Information not available 09/02/2023 Are There Any Guns Present In Your Home? No Information not available 08/14/2024 What Was The Date Of Your Most Recent Tobacco Screening? 08/14/2024 Information not available 08/14/2024 What Is Your Current Pack Years? 30ormorepack years [email or web address] Information not available 09/02/2023 What Is Your Relationship Status? [email or web address] Information not available 09/02/2023 Do You Use Your Seat Belt Or Car Seat Routinely? Yes [email or web address] Information not available 09/02/2023 Do You Have Smoke And Carbon Monoxide Detectors In Your Home? Yes [email or web address] Information not available 09/02/2023 At What Age Did You Start Smoking Tobacco? 14 [email or web address] Information not available 09/02/2023 How Much Tobacco Do You Smoke? 0.5 PPD 1/2 Pack - 1 Pack Information not available 08/14/2024 Do You Use Any Illicit Or Recreational Drugs? No [email or web address] Information not available 09/02/2023 Do You Use Sunscreen Routinely? Yes [email or web address] Information not available 09/02/2023 Has Tobacco Cessation Counseling Been Provided? No Information not available 02/14/2024 How Many Years Have You Smoked Tobacco? 50 Information not available 02/14/2024 Do You Or Have You Ever Used Any Other Forms Of Tobacco Or Nicotine? No [email or web address] Information not available 09/02/2023 Sex: Female Functional Status Question Answer Note LastModified by Organization D etails LastModified Time Are you able to care for yourself? Yes Information n ot available 08/14/2024 What is your exercise level? None Information not available 09/02/2023 Mental Status None [...] SNOMED-CT Code Diagnosis ICD10 Code Diagnosis Note [id number] CORRY Ahumada [facility] - Luis Angel Talbot [address] [place] [address] 02/14/2024 15:45:11 02/14/2024 16:23:15 Benign essential hypertension 0207006 I10 Refill amlodipine 5 mg daily Hyperlipidemia 66094316 E78.5 Refill rosuvastat in 5 mg daily and check fasting lipid panel Long-term drug therapy 122065982 Z79.899 CBC, BMP, LFT, thyroid panel and vitamin B12 and folate labs are due Depressive disorder 3548 9007 F32.A Refill on sertraline 50 mg daily. Depression is controlled per patient report Smoker 25835816 F17.200 pt is down to 2-3 packs per week. Body mass index less than 20 816270049 Z68.1 BMI is 18.8 [id number] CORRY Ahumada [facility] [address] [place] [address] 08/14/2024 11:59:37 08/14/2024 13:19:11 Body mass index less than 20 739474226 Z68.1 BMI is 19.6 Benign ess ential hypertension 7561031 I10 Stable on amlodipine 5 mg daily. 138/80 today Hyperlipidemia 83248692 E78.5 rosuvastat in 5 mg daily and check fasting lipid panel Depressive disorder 3548 9007 F32.A on sertraline 50 mg daily. Depression is controlled per patient report Long-term drug therapy 834357776 Z79.899 CBC, BMP and liver panel due Smoker 92107675 F17.210 pt is down to 2-3 packs per week. Patient does agree to a low-dose CT scan of the chest that can be done annually with Medicare recommenda tions Compressio n fracture of lumbar spine 840934171 M48.56XA Send for MRI of the lumbar spine without contrast to better evaluate the compressio n fracture in the lumbar spine noted on plain film. Also refer her to pain management for her options. Question kyphoplast y versus vertebropl asty depending on age of compressio n fracture Dizziness 560516414 R42 Refer for MRI brain with and without contrast with reported dizziness more often in recent months Poor short -term memory 219290912 R41.3 Along with poor short-term memory the MRI of the brain is needed as well as vitamin B12 and folate labs Heart murmur 74875440 R0 1.1 Heart murmur noted in the past and has been evaluated previously . Will refer for baseline echo Doppler follow-up Carotid bruit 507616279 R09.89 For carotid bruit evaluation will send for carotid artery duplex bilaterall y Health Concerns Section Related Observation LastModified by Organization Detai ls LastModified Time None Recorded Concern Status LastModified by Organization Details LastModified Time None Recorded Advance Directives Directive Y: Daughter Payers Encounter Date Sequence Insurance Name Policy Number Policy Choi Covered Member ID Choi Member ID Guarantor Name 02/14/2024 1 [facility] (MEDICARE REPLACEMENT/A DVANTAGE - PPO) [id number] Yuliya Harris [id number] Yuliya Harris 08/14/2024 1 [facility] (MEDICARE REPLACEMENT/A DVANTAGE - PPO) [id number] Yuliya Harris [id number] Yuliya Harris Notes Date Note Type Note Provider Name and Address Organization Details Recorded Time 024 text/ht ml Anxiety/DepressionReported bypatient.Notes:Patient is taking sertraline 50 mg daily for depressionHyperlipidemiaReported bypatient.Notes:Patient is taking rosuvastatin 5 mg daily and is due for labsHypertensionReported bypatient.Notes:Patient is taking amlodipine 5 mg daily Patient does continue to still smoke cigarettes CORRY Ahumada Attn: Accounting, [address] [place], [address], [facility] 02/29/2024 23:33:42 025 text/ht ml Anxiety/DepressionReported bypatient.Notes:Patient is taking sertraline 50 mg daily for depressionBack PainReported bypatient.Quality:sharp Severity:moderate (5-7) Duration:chronic Context:prior back problems Alleviating Factors:rest Aggravating Factors:movement/positioning;twisti ng;flexing back;extending back Associated Symptoms:no fever; no weak limbs; no numbness of the legs/feet; no tingling; no incontinence; no shortness of breathNotes:History of recently found compression fracture of lumbar spine but age-indeterminate suspect from 1 of her falls that she has had a few years backHyperlipidemiaReported bypatient.Notes:Patient is taking rosuvastatin 5 mg daily and is due for labsHypertensionReported bypatient.Notes:Patient is taking amlodipine 5 mg daily Patient does continue to still smoke cigarettes CORRY Ahumada Attn: Accounting, [address], [place], [address], [facility] 08/30/2024 16:55:57 OBGyn Episode No OBEpisode recorded.
--- OUTSIDE RECORDS SUMMARY | 2024-09-04 13:00 | XMS_ITS | Data Portability ---
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, [address] [place], [place], [id number], 8 15:54:25 Patient TargetsNo targets recorded. Patient Instructions Encounter Date Encounter Id Patient Instructions Last Modified By Organization Details Last Modified Time 10/16/2017 [id number] back care and preventing injuries: care instructions plindy Not available 10/16/2017 15:54:25 getting back to normal after low back pain: care instructions plindy Not available 10/16/2017 15:54:25 learning about relief for back pain plindy Not available 10/16/2017 15:54:25 The patient will start a course of medications and return in 1 month for follow up with xrays. 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 Procedures Surgical History Date Name Laterality Status Provider Name and Address Organization Details Recorded Time 3 Plastic Surgery completed Emma Shepherd [facility] 10/16/2017 11:18:59 Other completed Emma Shepherd [facility] [place] 10/16/2017 11:18:59 Imaging Results Imaging [...] Updated DateTime 10/16/2017 172.72 cm 20.5 kg/m2 31748.97 alejandro Emma VELÁZQUEZ [facility] 10/16/2017 11:18:36 Date Recorded Body height Body mass index (BMI) Body weight Provider Name and Address Organization Details Last Updated DateTime 11/12/2017 172.72 cm 20.5 kg/m2 37222.97 alejandro Emma VELÁZQUEZ [facility] 11/12/2017 14:07:44 Date Recorded Body height Body mass index (BMI) Body weight Provider Name and Address Organization Details Last Updated DateTime 01/14/2019 172.72 cm 20.5 kg/m2 67061.97 alejandro VELÁZQUEZ [facility] 01/14/2019 11:55:02 Social History Question Answer Notes LastModified by Organizat ion Details LastModified Time Tobacco Smoking Status Current Some Day Smoker Emma espino [facility] [place] 10/16/2017 11:18:53 What Is Your [...] available 10/16 11:19:42 Medical History Condition Response Coronary Artery Disease N HIV or AIDS N Dizziness or Fainting Spells N Gout N Kidney Stones N Nosebleeds or Sinus Trouble N Hernia N Control Pills N Lung Disease N Depression N Blood Clots N Nervous Trouble or Depression N Pacemaker [...] N Goiter N Anemia N Heart Attack (NM) N Ulcers N A Trick Joint N [...] SNOMED-CT Code Diagnosis ICD10 Code Diagnosis Note [id number] Elijah Santamaria MD [facility] [address] [place] [address], [address] [place] [address] 10/16/2017 10:53:57 10/16/2017 11:41:44 Low back pain 509222337 M54.5 Pathologic al fracture of vertebra 561817396 M48.56XA [id number] Elijah Santamaria MD [facility] [address] [place] [address], [address] [place] [address] 11/12/2017 13:31:30 11/12/2017 14:45:19 Low back pain 534565199 M54.5 Pathologic al fracture of vertebra 372527064 M48.56XD [id number] Ledy Gong [facility] [address], [address] [address] 01/19/2019 11:50:55 01/19/2019 11:59:04 [id number] Ledy Gong [facility] [address], [address] [address] 01/26/2019 12:15:17 01/26/2019 12:16:31 Health Concerns Section Related Observation LastModified by Organization Detai ls LastModified Time None Recorded Concern Status LastModified by Organization Details LastModified Time None Recorded Advance Directives Directive None Recorded Payers Encounter Date Sequence Insurance Name Policy Number Policy Choi Covered Member ID Choi Member ID Guarantor Name 10/16/2017 1 [place] Yuliya J Harris [id number] Yuliya Harris 10/16/2017 [employer] (MEDICARE DME REGION C) Yuliya J Harris [id number] Yuliya Harris 11/12/2017 1 [place] Yuliya J Harris [id number] Yuliya Harris 11/12/2017 [employer] (MEDICARE DME REGION C) Yuliya J Harris [id number] Yuliya Harris 01/19/2019 1 [place] Yuliya J Harris [id number] Yuliya Harris 01/19/2019 2 [employer] (MEDICARE SUPPLEMENT) Yuliya J Harris [id number] Yuliya Harris 01/26/2019 1 [place] Yuliya J Harris [id number] Yuliya Harris 01/26/2019 2 [employer] (MEDICARE SUPPLEMENT) Yuliya J Harris [id number] Yuliya Harris Notes Date Note Type Note [...] appears within normal limits. Elijah Santamaria MD [address] [place] [address], [address], [address], [facility] 04/23/2018 16:34:29 11/12/2017 text/html Follow-UpReporte d bypatient.Are you working?not at all How are you feeling?same (LBP) Previous PT:none Previous Injections:none Change in symptoms:no Do you need a work excuse?no Do you need a prescription renewal?no Elijah Santamaria MD [address] [place] [address], [address], [address], [facility] 09/08/2018 15:25:44 OBGyn Episode No OBEpisode recorded.
--- OUTSIDE RECORDS SUMMARY | 2024-09-04 13:00 | XMS_ITS | Data Portability ---
Author Organization [facility] Documents Address [address] [facility] [place] [address] Care Team Providers Care Keno Clerk Name Role Phone MILAN MCCORD Primary Care Provider Assessment No assessment recorded. Plan of Treatment Reminders Order Date Submit Date Provider Last Modified By Organization Details Last Modified Time Details Appointments None recorded. Lab BMP, serum or plasma 2019 020 [facility], [address] [place], [address], 0 09:23:29 lipid panel, serum 2019 020 [facility], [address] [place], [address], 0 09:23:28 CMP, serum or plasma 2019 020 [facility], [address] [place], [address], 0 06:47:16 lipid panel, serum 2019 020 [facility], [address] [place], [address], 0 06:47:15 CBC w/ auto diff 2019 020 charlie [facility], [address], [address], [place], [address], 0 14:21:37 urinalysis , dipstick 2019 020 [facility], [address], [address], [place], [address], 0 14:21:37 Referral None recorded. Procedures None recorded. Surgeries None recorded. Imaging US, echocardio gram, transthora cic, complete, w/ color flow 2019 020 [facility] [place], [address], [place], [address], 0 12:06:37 electrocar diogram 2019 020 [email or web address] [facility] [place], [address], [place], [address], 0 08:53:07 Medication Orders None recorded. Patient TargetsNo targets recorded. Patient Instructions Encounter Date Encounter Id Patient Instructions Last Modified By Organization Details Last Modified Time 08/18/2019 [id number] high cholesterol : care instructions [email or web address] Not available 08/18/2019 12:02:54 11/10/2019 [id number] deciding about using medicines to quit smoking [...] Exam [email or web address] Not available 11/10/2019 11:19:42 02/16/2020 [id number] high blood pressure: care instructions [email or web address] Not available 02/17/2020 12:23:25 learning about high blood pressure [email or web address] Not available 02/17/2020 12:23:25 aortic valve stenosis: care instructions [email or web address] Not available 02/16/2020 12:02:38 05/10/2020 [id number] deciding about using medicines to quit smoking [...] total 129 mg/dL <200 normal Not Available [facility] [address] [place], [address], 11/11/2019 06:47:15 11/11/1911/11/2019 lipid panel , serum HDL cholesterol 48 mg/dL > or = 50 low Not Available [facility] [address] [place], [address], 11/11/2019 06:47:15 11/11/19 20 11/11/2019 lipid panel , serum triglyceride s 98 mg/dL <150 normal Not Available [facility] [address] [place], [address], 11/11/2019 06:47:15 11/11/19 20 11/11/2019 lipid panel [...] 9): 2061- 2068 (http ://ed ucati on.Qu estHolyTransaction. com/f aq/FA Q164) Not Available [facility] [address] [place], [address], 11/11/2019 06:47:15 11/11/19 20 11/11/2019 lipid panel , serum chol/HDLC ratio 2.7 (calc ) <5.0 normal Not Available [facility] [address] [place], [address], 11/11/2019 06:47:15 11/11/19 20 11/11/2019 lipid panel , serum non HDL cholesterol 81 mg/dL _(modesta c) <130 normal For patie nts with diabe collins plus 1 major ASCVD risk facto r, treat ing to a non-H DL-C goal of <100 mg/dL (LDL- C of <70 mg/dL ) is consi dered a thera peuti c optio n. Not Available [facility] [address] [place], [address], 11/11/2019 06:47:15 11/11/1911/11/2019 CMP, serum or plasm a glucose 75 mg/dL 65-99 normal Fasti ng refer ence inter dung Not Available [facility] [address] [place], [address], 11/11/2019 06:47:16 11/11/19 20 11/11/2019 CMP, serum or plasm a urea nitrogen (BUN) 15 mg/dL 7-25 normal Not Available [facility] [address] [place], [address], 11/11/2019 06:47:16 11/11/1911/11/2019 CMP, serum or plasm a creatinine 0.89 mg/dL 0.60-0 .93 normal For patie nts >49 years of age, the refer ence limit for Creat inine is appro ximat carlos manuel 13% highe r for peopl e ident ified as Afric an-Am asmita n. Not Available [facility] [address] [place], [address], 11/11/2019 06:47:16 11/11/1911/11/2019 CMP, serum or plasm a eGFR non-afr. german 66 mL/mi n/1.7 3m2 > or = 60 normal Not Available [facility] [address] [place] [address], [address], 11/11/2019 06:47:16 11/11/1911/11/2019 CMP, serum or plasm a eGFR 76 mL/mi n/1.7 3m2 > or = 60 normal Not Available [facility] [address] [place] [address], [address], 11/11/2019 06:47:16 11/11/1911/11/2019 CMP, serum or plasm a BUN/creatini ne ratio NOT APPLIC ABLE (calc ) 6-22 Not Available [facility] [address] [place] [address], [address], 11/11/2019 06:47:16 11/11/1911/11/2019 CMP, serum or plasm a sodium 138 mmol/ L 135-14 6 normal Not Available [facility] [address] [place] [address], [address], 11/11/2019 06:47:16 11/11/1911/11/2019 CMP, serum or plasm a potassium 4.0 mmol/ L 3.5-5. 3 normal Not Available [facility] [address] [place] [address], [address], 11/11/2019 06:47:16 11/11/1911/11/2019 CMP, serum or plasm a chloride 102 mmol/ L 98-110 normal Not Available [facility] [address] [place] [address], [address], 11/11/2019 06:47:16 11/11/1911/11/2019 CMP, serum or plasm a carbon dioxide 32 mmol/ L 20-32 normal Not Available [facility] [address] [place] [address], [address], 11/11/2019 06:47:16 11/11/1911/11/2019 CMP, serum or plasm a calcium 10.1 mg/dL 8.6-10 .4 normal Not Available [facility] [address] [place] [address], [address], 11/11/2019 06:47:16 11/11/1911/11/2019 CMP, serum or plasm a protein, total 6.5 g/dL 6.1-8. 1 normal Not Available [facility] [address] [place] [address], [address], 11/11/2019 06:47:16 11/11/1911/11/2019 CMP, serum or plasm a albumin 4.4 g/dL 3.6-5. 1 normal Not Available [facility] [address] [place] [address], [address], 11/11/2019 06:47:16 11/11/1911/11/2019 CMP, serum or plasm a globulin 2.1 g/dL_ (calc ) 1.9-3. 7 normal Not Available [facility] [address] [place], [address], 11/11/2019 06:47:16 11/11/1911/11/2019 CMP, serum or plasm a albumin/glob ulin ratio 2.1 (calc ) 1.0-2. 5 normal Not Available [facility] [address] [place], [address], 11/11/2019 06:47:16 11/11/1911/11/2019 CMP, serum or plasm a bilirubin, total 0.6 mg/dL 0.2-1. 2 normal Not Available [facility] [address] [place] [address], [address], 11/11/2019 06:47:16 11/11/1911/11/2019 CMP, serum or plasm a alkaline phosphatase 39 U/L 37-153 normal Not Available [facility] [address] [place] [address], [address], 11/11/2019 06:47:16 11/11/1911/11/2019 CMP, serum or plasm a AST 11 U/L 10-35 normal Not Available [facility] [address] [place] [address], [address], 11/11/2019 06:47:16 11/11/1911/11/2019 CMP, serum or plasm a ALT 5 U/L 6-29 low NO COLLE CTION DATE RECEI FLIP. WE HAVE USED THE DATE THE SPECI MEN WAS RECEI FLIP BY THIS LABOR ATORY THE COLLE CTION DATE. IF THIS IS INCOR RECT, PLEAS E CONTA CT CLIEN T SERVI JEFFREY. PHONE NUMBE R: [phone] Not Available [facility] [address] [place] [address], [address], 11/11/2019 06:47:16 05/11/20 20 05/11/2020 lipid panel , serum cholesterol, total 134 mg/dL <200 normal Not Available [facility] [address] [place], [address], 05/11/2020 09:23:28 05/11/20 20 05/11/2020 lipid panel , serum HDL cholesterol 52 mg/dL > or = 50 normal Not Available [facility] [address] [place], [address], 05/11/2020 09:23:28 05/11/2005/11/2020 lipid panel , serum triglyceride s 91 mg/dL <150 normal Not Available [facility] [address] [place], [address], 05/11/2020 09:23:28 05/11/2005/11/2020 lipid panel , serum [...] 2061- 2068 (http ://ed ucati on.Qu bryceDi [employer]. com/f aq/FA Q037) Not Available [facility] [address] [place], [address], 05/11/2020 09:23:28 05/11/2005/11/2020 lipid panel , serum chol/HDLC ratio 2.6 (calc ) <5.0 normal Not Available [facility] [address] [place], [address], 05/11/2020 09:23:28 05/11/2005/11/2020 lipid panel , serum non HDL cholesterol 82 mg/dL _(modesta c) <130 normal For patie nts with diabe collins plus 1 major ASCVD risk facto r, treat ing to a non-H DL-C goal of <100 mg/dL (LDL- C of <70 mg/dL ) is consi dered a thera peisai c optio n. Not Available [facility] [address] [place], [address], 05/11/2020 09:23:28 05/11/2005/11/2020 BMP, serum or plasm a glucose 83 mg/dL 65-99 normal Fasti ng refer ence inter dung Not Available [facility] [address] [place], [address], 05/11/2020 09:23:29 05/11/2005/11/2020 BMP, serum or plasm a urea nitrogen (BUN) 12 mg/dL 7-25 normal Not Available [facility] [address] [place], [address], 05/11/2020 09:23:29 05/11/2005/11/2020 BMP, serum or plasm a creatinine 0.84 mg/dL 0.60-0 .93 normal For patie nts >49 years of age, the refer ence limit for Creat inine is appro ximat carlos manuel 13% highe r for peopl e ident ified as Afric an-Am asmita n. Not Available [facility] [address] [place], [address], 05/11/2020 09:23:29 05/11/2005/11/2020 BMP, serum or plasm a eGFR non-afr. german 70 mL/mi n/1.7 3m2 > or = 60 normal Not Available [facility] [address] [place], [address], 05/11/2020 09:23:29 05/11/2005/1105/11/2020 BMP, serum or plasm a eGFR 81 mL/mi n/1.7 3m2 > or = 60 normal Not Available [facility] [address] [place] [address], [address], 05/11/2020 09:23:29 05/11/20 20 05/11/2020 BMP, serum or plasm a BUN/creatini ne ratio NOT APPLIC ABLE (calc ) 6-22 Not Available [facility] [address] [place] [address], [address], 05/11/2020 09:23:29 05/11/20 20 05/11/2020 BMP, serum or plasm a sodium 137 mmol/ L 135-14 6 normal Not Available [facility] [address] [place] [address], [address], 05/11/2020 09:23:29 05/11/20 20 05/11/2020 BMP, serum or plasm a potassium 4.2 mmol/ L 3.5-5. 3 normal Not Available [facility] [address] [place] [address], [address], 05/11/2020 09:23:29 05/11/2005/11/2020 BMP, serum or plasm a chloride 102 mmol/ L 98-110 normal Not Available [facility] [address] [place] [address], [address], 05/11/2020 09:23:29 05/11/20 20 05/11/2020 BMP, serum or plasm a carbon dioxide 26 mmol/ L 20-32 normal Not Available [facility] [address] [place] [address], [address], 05/11/2020 09:23:29 05/11/2005/11/2020 BMP, serum or plasm a calcium 9.4 mg/dL 8.6-10 .4 normal NO COLLE CTION DATE RECEI FLIP. WE HAVE USED THE DATE THE SPECI MEN WAS RECEI FLIP BY THIS LABOR ATORY THE COLLE CTION DATE. IF THIS IS INCOR RECT, PLEAS E CONTA CT CLIEN T SERVI JEFFREY. PHONE NUMBE R: [phone] Not Available [facility] [address] [place], [address], 05/11/2020 09:23:29 11/10/1911/10/2019 CBC w/ auto diff WBC mL 4.1-10 .9 Not Available [facility] [address], [place], [address], 11/10/2019 12:40:01 11/10/1911/10/2019 CBC w/ auto diff lym mL 0.6-4. 1 Not Available [facility] [address], [place], [address], 11/10/2019 12:40:01 11/10/1911/10/2019 CBC w/ auto diff lym% % 10.0-5 8.5 Not Available [facility] [address], [place], [address], 11/10/2019 12:40:01 11/10/1911/10/2019 CBC w/ auto diff mid mL 0.0-1. 8 Not Available [address], [place], [address], 11/10/2019 12:40:01 11/10/1911/10/2019 CBC w/ auto diff mid% % 0.01-2 4.0 Not Available [facility] [address], [place], [address], 11/10/2019 12:40:01 11/10/1911/10/2019 CBC w/ auto diff gran mL 2.0-7. 8 Not Available [facility] [address], [place], [address], 11/10/2019 12:40:01 11/10/1911/10/2019 CBC w/ auto diff gran% % 37.0-9 2.0 Not Available [facility] [address], [place], [address], 11/10/2019 12:40:01 11/10/1911/10/2019 CBC w/ auto diff RBC mL 4.20-6 .3 Not Available [facility] [address], [place], [address], 11/10/2019 12:40:01 11/10/1911/10/2019 CBC w/ auto diff HGB g/dL 12.0-1 8.0 Not Available [address], [place], [address], 11/10/2019 12:40:01 11/10/1911/10/2019 CBC w/ auto diff HCT % 37.0-5 1.0 Not Available [address], [place], [address], 11/10/2019 12:40:01 11/10/1911/10/2019 CBC w/ auto diff MCV fL 80.0-9 7.0 Not Available [address], [place], [address], 11/10/2019 12:40:01 11/10/1911/10/2019 CBC w/ auto diff MCH pg 26.0-3 2.0 Not Available [facility] [address], [place], [address], 11/10/2019 12:40:01 11/10/1911/10/2019 CBC w/ auto diff MCHC g/dL 31.0-3 6.0 Not Available [facility] [address], [place], [address], 11/10/2019 12:40:01 11/10/1911/10/2019 CBC w/ auto diff RDW % 11.5-1 4.5 Not Available [address], [place], [address], 11/10/2019 12:40:01 11/10/1911/10/2019 CBC w/ auto diff plt K/uL 140-44 0 Not Available [address], [place], [address], 11/10/2019 12:40:01 11/10/1911/10/2019 CBC w/ auto diff MPV fL 0.0-99 .8 Not Available [address], [place], [address], 11/10/2019 12:40:01 11/10/1911/10/2019 CBC w/ auto diff pct % 0.190- 0.360 Not Available [address], [place], [address], 11/10/2019 12:40:01 11/10/1911/10/2019 CBC w/ auto diff pdw L 15.5-1 7.1 Not Available [address], [place], [address], 11/10/2019 12:40:01 11/10/1911/10/2019 urina lysis , dipst ick Unknown Analyte Yellow Not Available [address], [place], [address], 11/10/2019 12:40:04 11/10/19 20 11/10/2019 urina lysis , dipst ick Unknown Analyte Clear Not Available [facility] [address], [place], [address], 11/10/2019 12:40:04 11/10/19 20 11/10/2019 urina lysis , dipst ick Unknown Analyte Negati ve Not Available [facility] [address], [place], [address], 11/10/2019 12:40:04 11/10/19 20 11/10/2019 urina lysis , dipst ick Unknown Analyte Negati ve Not Available [facility] [address], [place], [address], 11/10/2019 12:40:04 11/10/19 20 11/10/2019 urina lysis , dipst ick Unknown Analyte Negati ve Not Available [facility] [address], [place], [address], 11/10/2019 12:40:04 11/10/19 20 11/10/2019 urina lysis , dipst ick Unknown Analyte 1.020 Not Available [facility] [address], [place], [address], 11/10/2019 12:40:04 11/10/19 20 11/10/2019 urina lysis , dipst ick Unknown Analyte Trace- lysed Not Available [facility] [address], [place], [address], 11/10/2019 12:40:04 11/10/19 20 11/10/2019 urina lysis , dipst ick Unknown Analyte 6.5 Not Available [place] [address], [place], [address], 11/10/2019 12:40:04 11/10/19 20 11/10/2019 urina lysis , dipst ick Unknown Analyte Negati ve Not Available [address], [place], [address], 11/10/2019 12:40:04 11/10/19 20 11/10/2019 urina lysis , dipst ick Unknown Analyte 0.2 Not Available [address], [place], [address], 11/10/2019 12:40:04 11/10/19 20 11/10/2019 urina lysis , dipst ick Unknown Analyte negati ve Not Available [address], [place], [address], 11/10/2019 12:40:04 11/10/1911/10/2019 urina lysis , dipst ick Unknown Analyte Trace Not Available [address], [place], [address], 11/10/2019 12:40:04 08/18/19 20 elect rocar diogr am No observ ation record ed. [email or web address] Not Available 2019 12:20:47 03/28/2003/22/2020 US, echoc ardio gram, trans thora cic, compl ete, w/ color flow No observ ation record ed. [facility] [address], [place], [address], 03/28/2020 12:06:37 Result Notes None recorded. Problems Name Problem SNOMED Code Status Onset Date Resolution Date Notes Provider Name and Address Organization Details Recorded Time Hyperten sive heart disease 67441032 Completed 201302/10/2019 (Problem was migrated from NextOVIA on 07/31/19) [place] [address] [place], [address] , [facility] 9 14:52:59 Hip pain 17500807 Active 2015 (Problem was migrated from NextOVIA on 07/31/19) Not Available [facility] [employer] 8 20:48:52 [facility] hyperten brit 04911141 Active 2015 (Problem was migrated from Anonymess on 07/31/19) Not Available [facility] [employer] 8 20:18:11 Musculos keletal chest pain 091439898 Active 2015 (Problem was migrated from Anonymess on 07/31/19) Not Available [facility] [employer] 8 20:27:51 Family history of coronary arterios clerosis 996771112 Active 2015 (Problem was migrated from Anonymess on 07/31/19) Not Available [facility] [employer] 8 20:30:28 Hyperlip idemia 07972746 Active 2019 [place] [address] [place], [address] , [facility] 0 11:40:23 Tobacco dependen ce syndrome 08199219 Active 2015 (Problem was migrated from NextOVIA on 07/31/19) Not Available [employer] 8 20:34:37 Cat bite - wound 877719015 Completed 201511/10/2019 (Problem was migrated from NextOVIA on 07/31/19) [place] [address] [place], [address] , [facility] 0 11:36:17 Thallium stress test abnormal 732882678 Active 2015 (Problem was migrated from NextOVIA on 07/31/19 18) Not Available [employer] [facility] [employer] 8 20:40:59 Problem Notes Documentation Provider Name and Address Organization Details Recorded Time Biomedical Electronics Technician Consult Note : [facility] [address] [facility] [address]VYEE, PEGGY J (id #[id number], : 1950) [facility] [address] [facility] [address] [place] [address] Encounter Summary - Progress Note Date Printed: [...] received this fax in error, please visit [email or web address] to notify the sender and confirm that the information will be destroyed. If you do not have internet access, please call to notify the sender and confirm that the information will be destroyed. Thank you for your attention and cooperation. [ID:[id number]] Patient Randolph Jin (69yo, F) #[id number] 1950 Patient Demographics: Address [address] [place] [address] Encounter Notes: Encounter Reason/Date Followup: Essential hypertension 08/18/2019 - 11:00AM - [facility], [place] History of Present Illness patient is a [...] suboptimal. Increase metoprolol succinate to 50 mg [id number]: Essential (primary) hypertension ELECTROCARDIOGRAM Ordering provider to read?: Y 2. Body mass index less than 20Z68.1: Body mass index (BMI) 19.9 or less, adult 3. Hyperlipidemia- on gzcmqzjxdsouD18.5: Hyperlipidemia, unspecified HIGH CHOLESTEROL: CARE INSTRUCTIONS 4. Family history of coronary arteriosclerosis- Continue current medications plus tobacco avoidance. Discussed diet and exercise is [facility] times weekly Z82.49: Family history of ischemic heart disease and other diseases of the circulatory system ELECTROCARDIOGRAM Ordering provider to read?: Y Return to Office Milan Mccord MD for Established Patient 15 at [facility] on 10/19/2019 at 11:00 AM to see Su Fairchild MD for Established Patient 15 at [facility], [place] on or around 02/15/2020 Patient Medical History: [...] Vaccines Vaccine Type Date Amt. Route Site [facility] Lot # Mfr. Exp. Date Date on VIS VIS Given [employer] Diphtheria, Tetanus Td (adult) preservative free 03/20/16 Influenza Influenza, injectable, MDCK, quadrivalent 04/20/19 0.5 mL Intramuscular Deltoid, Right [id number] [facility] 12/29/19 02/12/19 04/20/19 Maggie Asher influenza, injectable, quadrivalent 05/01/17 [facility] Electronically Signed by: SU FAIRCHILD [facility] 15:00:56 Biomedical Electronics Technician Consult Note : [facility] [address] [facility] [address]XEUK, PEGGY J (id #[id number], : 1950) [facility] [address] [facility] [address] [place] [address] Encounter Summary - Progress Note Date Printed: [...] received this fax in error, please visit [email or web address] to notify the sender and confirm that the information will be destroyed. If you do not have internet access, please call to notify the sender and confirm that the information will be destroyed. Thank you for your attention and cooperation. [ID:[id number]] Patient Randolph Jin (69yo, F) #[id number] 1950 Patient Demographics: Address [address] [place] [address] Encounter Notes: Encounter Reason/Date Followup: Essential hypertension Followup: Family history of coronary arteriosclerosis 02/16/2020 - 11:00AM - [facility] [place] History of Present Illness Patient is a [...] suboptimal. Increase metoprolol succinate to 50 mg [id number]: Essential (primary) hypertension HIGH BLOOD PRESSURE: CARE INSTRUCTIONS LEARNING ABOUT HIGH BLOOD PRESSURE 2. Family history of coronary arteriosclerosis- Continue current medications plus tobacco avoidance. Discussed diet and exercise is currently [facility] times weekly Z82.49: Family [...] Fairchild MD for Established Patient 15 at [facility], [place] on or around 04/17/2020 Milan Mccord MD for Established Patient 15 at [facility] on 05/10/2020 at 10:45 AM Patient Medical History: Allergies List Reviewed Allergies NKDA Medications Reviewed Medications NameDate Source Adult Low Dose Aspirin 81 mg tablet,delayed releaseTake 1 tablet(s) every day by oral route., start filled Anika Roy lisinopril 10 mg vkpyms45/13/20 filled [facility] meloxicam 15 mg tabletTAKE 1 TABLET BY MOUTH EVERY DAY CVPWXT14/12/20 renewed Milan Mccord MD metoprolol succinate ER [...] Vaccines Vaccine Type Date Amt. Route Site [facility] Lot # Mfr. Exp. Date Date on VIS VIS Given Car[employer] Maker Diphtheria, Tetanus Td (adult) preservative free 03/20/16 Influenza Influenza, injectable, MDCK, quadrivalent 04/20/19 0.5 mL Intramuscular Deltoid, Right [id number] [facility] 12/29/19 02/12/19 04/20/19 Maggie Lb influenza, injectable, quadrivalent 05/01/17 [facility] Electronically Signed by: SU FAIRCHILD MD Alem Morris [facility] 02/17/2020 11:14:08 Biomedical Electronics Technician Consult Note : [place] [address] [facility] [address]KCCE, PEGGY Mansoor (id #[id number], : 1950) [facility] [address] [facility] [address] [place] [address] Encounter Summary - Progress Note Date Printed: [...] received this fax in error, please visit [email or web address] to notify the sender and confirm that the information will be destroyed. If you do not have internet access, please call to notify the sender and confirm that the information will be destroyed. Thank you for your attention and cooperation. [ID:[id number]] Patient Jin Randolph Max (69yo, F) #[id number] 1950 Patient Demographics: Address [address] [place] [id number] Encounter Notes: Encounter Reason/Date Result Review Followup: Essential hypertension 04/05/2020 - 10:30AM - [facility] History of Present Illness Patient [...] Mccord MD for Established Patient 15 at [facility] on 05/10/2020 at 10:45 AM to see Su Fairchild MD for Established Patient 15 at [facility], [place] on or around 10/04/2020 Patient Medical History: [...] route.02/16/20 filled [facility] lisinopril 10 mg jmanjv71/13/20 filled [facility] meloxicam 15 mg tabletTAKE 1 TABLET BY MOUTH EVERY DAY EIVEZU01/08/20 renewed Milan Mccord MD metoprolol succinate ER [...] Vaccines Vaccine Type Date Amt. Route Site [facility] Lot # Mfr. Exp. 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 14:53:13 Procedures Surgical History Date Name [...] AWE 5-10 Year Plan - Female completed [facility] 10/27/2018 11:31:29 Append[facility] completed Not Available [facility] 08/01/2017 13:55:57 Tonsillectomy completed Not Available [facility] 08/01/2017 13:55:57 Imaging Results Imaging Date Name Status LastModified by Organization Details LastModified Time 08/18/2019 electrocardiogram completed Informa tion not available 08/18/2019 12:20:47 03/22/2020 US, echocardiogram, transthoracic, complete, w/ color flow completed [facility] [place] [address] [facility] [address], [place], [address], 03/28/2020 12:06:37 Procedure Notes None recorded. Medical [...] Updated DateTime 0 172.72 cm 19 kg/m2 61166.0 5 g 63 /min 174 mm[Hg] 104 mm[Hg] 170 mm[Hg] 109 mm[Hg] Anika Roy [facility] 0 11:51:45 Date Recorded Body height Body mass index (BMI) Body weight Provider Name and Address Organization Details Last Updated DateTime 11/10/2019 172.72 cm 19.2 kg/m2 81371.64 g Maggie Asher [facility] 11/10/2019 11:20:53 Date Recorded Heart rate Systolic blood pressure Diastolic blood pressure Provider Name and Address Organization Details Last Updated DateTime 11/10/2019 72 /min 140 mm[Hg] 84 mm[Hg] [place] [address] [place], [address] 11/10/2019 11:34:59 Date Recorded Body height Body mass index (BMI) Body weight Heart rate Systolic blood pressure Diastolic blood pressure Systolic blood pressure Diastolic blood pressure Provider Name and Address Organization Details Last Updated DateTime 0 172.72 cm 19.4 kg/m2 20475.3 3 g 51 /min 193 mm[Hg] 96 mm[Hg] 179 mm[Hg] 92 mm[Hg] Thao Hudson [facility] 0 11:57:10 Date Recorded Body height Body mass index (BMI) Body weight Heart rate Provider Name and Address Organization Details Last Updated DateTime 04/05/2020 172.72 cm 18.9 kg/m2 46585.55 g 62 /min Anika Roy [facility] 04/05/2020 11:27:37 Date Recorded Systolic blood pressure Diastolic blood pressure Provider Name and Address Organization Details Last Updated DateTime 04/05/2020 142 mm[Hg] 85 mm[Hg] [place] [address] [place], [address], [facility] 04/05/2020 11:32:29 Date Recorded Body height Body mass index (BMI) Body weight Provider Name and Address Organization Details Last Updated DateTime 05/10/2020 172.72 cm 18.9 kg/m2 55158.45 g Maggie Asher [facility] 05/10/2020 11:22:48 Date Recorded Heart rate Systolic blood pressure Diastolic blood pressure Provider Name and Address Organization Details Last Updated DateTime 05/10/2020 68 /min 130 mm[Hg] 80 mm[Hg] [place] [address] [place], [address] 05/10/2020 11:38:29 Social History Question Answer Notes LastModified by Organizat ion Details LastModified Time Tobacco Smoking Status Former Smoker [facility] 02/11/2018 12:05:49 Do You Have An Advance Directive? No Information not available 02/11/2018 What Is Your Level Of Alcohol Consumption? Occasional Information not available 08/12/2017 Is Blood Transfusion Acceptable In An Emergency? Yes Information not available 02/11/2018 What Is Your Level Of Caffeine Consumption? Moderate Information not available 08/12/2017 How Much Tobacco Do You Chew? None Information not available 02/17/2019 Do You Or [...] preservative free, adsorbed 6 completed Not Available [facility] [employer] 07/31/2017 22:05:08 Influenza, split virus, quadrivalent, preservative 7 completed Hortencia Siddiqui [facility] 10/22/2017 11:15:28 Past Encounters Encounter ID Performer Location Encounter Start Date Encounter Closed Date Diagnosis/Indication Diagnosis SNOMED-CT Code Diagnosis ICD10 Code Diagnosis Note [id number] Su Fairchild MD [facility] [address] [place] [address] 08/13/2017 11:27:44 08/13/2017 12:42:28 Essential hypertension 29931104 I10 Well controlled Family his tory of coronary arteriosclerosis 514058929 Z82.49 Continue current medication s plus tobacco avoidance. Discussed diet and exercise is currently [facility] Tobacco de pendence syndrome 07806286 F17.200 Stopped smoking 6 months ago has not had a cigarette since [id number] Milan Mccord MD [facility] [address] [place] [address] 10/22/2017 11:09:29 10/22/2017 11:48:48 Adult health examination 747770406 Z00.00 rtc 6mos follow up visit..laurence l send lab..cont meds Family his tory of coronary arteriosclerosis 355240896 Z82.49 Essential hypertension 48410873 I10 Tobacco de pendence syndrome 29369848 F17.200 Osteoporosis 28032667 M8 1.0 [id number] Su Fairchild MD [facility] [address] [place] [address] 02/11/2018 11:07:29 02/11/2018 12:25:21 Essential hypertension 85008221 I10 Well controlled [id number] Milan Mccord MD [facility] [address] [place] [address] 04/28/2018 11:11:06 04/28/2018 11:41:22 Essential hypertension 04662357 I10 rtc 6mos complete exam..will send lab results..c ont meds Tobacco de pendence syndrome 60291721 F17.200 Discussed the need to stop smoking Pain in ri ght sacroiliac joint 4204737921 2350869 M53.3 Ibuprofen twice a day for 1-2 weeks. If no improvemen t see Dr. Santamaria orthopedic s again Disorder o f breast implant 567291155 T85.9XXA Plastic surgery consultati on Dr. Jennings [id number] Su Fairchild MD [facility] [address] [place] [address] 08/19/2018 10:49:20 08/19/2018 11:54:41 Essential hypertension 65014085 I10 Well controlled Family his tory of coronary arteriosclerosis 937276082 Z82.49 Continue current medication s plus tobacco avoidance. Discussed diet and exercise is currently [facility] times weekly [id number] MD ROBINSON Trejo[address] [place] [address] 10/27/2018 11:24:06 10/27/2018 11:51:03 Long-term drug therapy 074836377 Z79.899 Adult heal th examination 200901197 Z00.00 rtc 6mos follow up visit..laurence l send lab..cont meds Low back pain 621308391 M54.5 Referred back to orthopedic s Dr. Santamaria Essential hypertension 78193851 I10 rtc 6mos follow-up exam..will send lab results..c ont meds Taking hig h risk medication 5699689097 09184 Z91.89 [id number] Milan Mccord MD [address] [place] [address] 02/06/2019 14:14:18 02/06/2019 14:46:45 Lumbar radiculopathy 876637266 M54.16 RTC 5 days after Celebrex generic 200 mg daily. AP pelvis x-ray on return. Medrol Dosepak from Dr. Santamaria previously did not help. Gabapentin from the emergency room did not help. Peripheral vascular disease 477865336 I73.9 Has an appointmen t to see her cardiologi st Dr. Fairchild in 10 days. Made her a copy of the CT scan which reveals the right iliac artery stenosis. Essential hypertension 49327229 I10 rtc 6mos follow-up exam..will send lab results..c ont meds Taking hig h risk medication 7950911658 29744 Z91.89 [id number] MD AMANDA Trejo[address] [place] [address] 02/10/2019 14:05:33 02/10/2019 14:54:55 Lumbar radiculopathy 351138047 M54.16 Pelvis x-ray does not show much hip arthritis. We will set her up for an MRI of the lumbar spine, call the next day for results. May need spine consultati on. Continue meloxicam 15 mg daily as needed. Essential hypertension 30271176 I10 rtc 6mos follow-up exam..will send lab results..c ont meds [id number] uS Fairchild MD [facility] [place] [address] [place] [address] 02/17/2019 11:01:16 02/17/2019 13:19:47 Essential hypertension 33268442 I10 Well controlled Peripheral vascular disease 664173174 I73.9 right iliac disease on recent CTA but without claudicati on and with palpable dorsal pedal and posterior tibial pulses. Would add rosuvastat in and continue low-dose aspirin Low back pain 266723002 M54.5 right lower back pain which radiates into the right lateral hip area. 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 [id number] Milan Mccord MD [facility] [address] [place] [address] 04/20/2019 11:09:50 04/20/2019 11:40:51 Essential hypertension 11775304 I10 rtc 6mos complete exam..will send lab results..c ont meds Tobacco de pendence syndrome 99908126 F17.200 Discussed the need to stop smoking Chronic low back pain 27 1212032 M54.5 Continue follow-up with international specialist Long-term drug therapy 719933984 Z79.899 Administra tion of influenza vaccine 60253208 Z23 [id number] Su Fairchild MD [facility] [address] [place] [address] 08/18/2019 11:27:41 08/18/2019 12:06:38 Essential hypertension 93821485 I10 suboptimal . Increase metoprolol succinate to 50 mg daily Body mass index less than 20 028527341 Z68.1 Hyperlipidemia 00048006 E78.5 on rosuvastat in Family his tory of coronary arteriosclerosis 883097173 Z82.49 Continue current medication s plus tobacco avoidance. Discussed diet and exercise is currently [facility] weekly [id number] Milan Mccord MD [facility] [address] [place] [address] 11/10/2019 11:05:50 11/10/2019 11:40:46 Adult health examination 659695414 Z00.00 rtc 6mos follow up visit..laurence l send lab..cont meds Essential hypertension 39549031 I10 rtc 6mos follow-up exam..will send lab results..c ont meds Family his tory of coronary arteriosclerosis 914390753 Z82.49 Tobacco de pendence syndrome 94700226 F17.200 Discussed the need to stop smoking Chronic low back pain 27 6676074 M54.5 Continue follow-up with international specialist [id number] Su Fairchild MD [place] [address] [facility] [address] [place] [address] 02/16/2020 11:43:48 02/16/2020 12:06:54 Essential hypertension 56102516 I10 suboptimal . Increase metoprolol succinate to 50 mg daily Family his tory of coronary arteriosclerosis 981944562 Z82.49 Continue current medication s plus tobacco avoidance. Discussed diet and exercise is currently [facility] weekly Aortic valve stenosis 60 836639 I35.0 Has heart murmur consistent with aortic stenosis with no previous history of same. Needs echocardio gram [id number] Su Fairchild MD [facility], [place] [address] [place], [place] [address],[address] [place] [address] 04/05/2020 11:09:23 04/05/2020 11:41:06 Essential hypertension 23293311 I10 Improved since medication change Aortic dung ve sclerosis 46441349 I35.8 Follow with yearly echoes [id number] Milan Mccord MD [place] [address] [facility] [address] [place] [address] 05/10/2020 11:14:19 05/10/2020 11:37:23 Essential hypertension 56611530 I10 rtc 6mos complete exam..will send lab results..c ont meds Tobacco de pendence syndrome 82617998 F17.200 Discussed the need to stop smoking Hyperlipidemia 11694116 E78.5 Will send lab and advise. Taking hig h risk medication 2658716797 96231 Z91.89 Health Concerns Section Related Observation LastModified by Organization Detai ls LastModified Time None Recorded Concern Status LastModified by Organization Details LastModified Time None Recorded Advance Directives Directive N: Payers Encounter Date Sequence Insurance Name Policy Number Policy Choi Covered Member ID Choi Member ID Guarantor Name 08/18/2019 1 [place] Randolph J Jin [id number] Randolph J Jin 08/18/2019 2 [employer] (MEDICARE SUPPLEMENT) Randolph J Jin [id number] Randolph J Jin 11/10/2019 1 [place] Randolph J Jin [id number] Randolph J Jin 11/10/2019 1 [facility] Nikolas Jin [id number] Randolph J Jin 02/16/2020 1 [place] Randolph J Jin [id number] Randolph J Jin 02/16/2020 2 [employer] (MEDICARE SUPPLEMENT) Randolph J Jin [id number] Randolph J Jin 04/05/2020 1 [place] Randolph J Jin [id number] Randolph J Jin 04/05/2020 2 [employer] (MEDICARE SUPPLEMENT) Randolph J Jin [id number] Randolph J Jin 05/10/2020 1 [place] Randolph J Jin [id number] Randolph J Jin 05/10/2020 2 [employer] (MEDICARE SUPPLEMENT) Randolph J Jin [id number] Randolph J Jin Notes Date Note Type [...] of 25 [place] [address] [place], [address], [facility] 08/18/2019 12:02:57 0 text/html For her exam. Feels well. Has cut back on smoking but needs to quit altogether and this was discussed. Still needs colon cancer screening and I offered colonoscopy or Cologuard but she wants to hold off on both for now. Taking her medications okay, [place] [address] [place], [address], [facility] 11/10/2019 14:59:53 0 text/html Patient is [...] [place] [address] [place], [address], [facility] 02/16/2020 12:02:46 0 text/html Patient is [...] a year [place] [address] [place], [address], [facility] 04/05/2020 11:35:11 0 text/html Follow-up visit, doing well, working. Taking her medications okay. Needs lab[place] [address] [place], [address], [facility] 05/10/2020 22:01:44 OBGyn Episode No OBEpisode recorded.
== END 2024-09-04 12:41 | disposition home or self-care (01) ==
PROVIDERS: PCP Physician Assistant; Visit Provider Physician Assistant
DX: M48.56XA Collapsed vertebra, not elsewhere classified, lumbar region, initial encounter for fracture (principal); M48.061 Spinal stenosis, lumbar region without neurogenic claudication; M47.816 Spondylosis without myelopathy or radiculopathy, lumbar region; I65.23 Occlusion and stenosis of bilateral carotid arteries; R90.82 White matter disease, unspecified; R42 Dizziness and giddiness; R09.89 Other specified symptoms and signs involving the circulatory and respiratory systems
CPT/HCPCS: 70551; 72148; 93880; A9579

== ENCOUNTER 2024-09-25 12:22 | Outpatient (CLI) | payer MEDICARE, SELFPAY ==
--- NOTE | 2024-09-25 | ECHO_ITS ---
Patient Info Name: Yuliya Harris Age: 74 years : 1950 Gender: Female Ht: 68 in Wt: 130 lbs BSA: 1.68 m2 HR: 77 bpm BP: 147 / 88 mmHg Heart Rhythm: Sinus Rhythm Technical Quality: Good Exam Date: 09/25/2024 12:35 PM Exam Location: Echo Lab Patient Status: Outpatient Admit Date: 09/25/2024 Staff Ordering Physician: ManjeetBelia PA-C Phy Therapist: Angela Hnery RDCS Attending Provider: BlancheBelia PA-C Exam Type: CA echo doppler color flow Study Info Indications R01.1 - Cardiac murmur, unspecified Complete two-dimensional, color flow and Doppler transthoracic echocardiogram is performed. Summary 1. Complete two-dimensional, color flow and Doppler transthoracic echocardiogram is performed. 2. Left ventricular chamber dimension is normal. 3. Left ventricular systolic function is normal, estimated at 65-70%. 4. There is mild concentric increased left ventricular wall thickness. 5. The left ventricular diastolic function is grade I diastolic dysfunction. 6. E/e' 12 is mildly elevated. 7. The aortic valve is not well visualized. Cannot determine number of aortic valve leaflets. 8. There is severe aortic valve sclerosis. 9. There is severe aortic valve stenosis based on a peak velocity of 284 cm/s, mean gradient of 17 mmHg, and aortic valve area of 0.8 cm2. 10. There is trace aortic valve regurgitation. 11. The mitral valve has moderately calcified annulus. 12. There is mild to moderate mitral valve regurgitation. 13. There is mild tricuspid valve regurgitation. 14. No pulmonary hypertension, estimated pulmonary arterial systolic pressure is 31 mmHg. Left Ventricle E/e' 12 is mildly elevated. Left ventricular chamber dimension is normal. Left ventricular systolic function is normal, estimated at 65-70%. There is mild concentric increased left ventricular wall thickness. The left ventricular diastolic function is grade I diastolic dysfunction. Right Ventricle Right ventricular systolic function is normal and with normal TAPSE 1.9 cm. Right ventricular chamber dimension is normal. Left Atria Left atrial chamber dimension is normal. Right Atria Right atrial chamber dimension is normal. Aortic Valve The aortic valve is not well visualized. Cannot determine number of aortic valve leaflets. There is severe aortic valve stenosis based on a peak velocity of 284 cm/s, mean gradient of 17 mmHg, and aortic valve area of 0.8 cm2. There is severe aortic valve sclerosis. There is trace aortic valve regurgitation. Pulmonic Valve There is no pulmonic regurgitation. Mitral Valve The mitral valve has moderately calcified annulus. There is no mitral valve stenosis. There is mild to moderate mitral valve regurgitation. Tricuspid Valve There is mild tricuspid valve regurgitation. No pulmonary hypertension, estimated pulmonary arterial systolic pressure is 31 mmHg. Pericardium/Pleural There is no pericardial effusion. Inferior Vena Cava Normal inferior vena cava with >50% collapse upon inspiration consistent with normal right atrial pressure, 5 mmHg. Aorta The aortic root size at the sinus of Valsalva is normal. Left Ventricular Outflow Tract Name Value Normal LVOT 2D LVOT Diameter 2.0 cm LVOT Doppler LVOT Peak Gradient 2 mmHg LVOT Mean Gradient 1 mmHg LVOT VTI 16 cm LVOT VTI/AV VTI Ratio 0.3 LVOT Stroke Volume 52 ml LVOT CO 3.8 l/min LVOT CI 2.3 l/min/m2 Pulmonic Valve Name Value Normal RVOT Doppler RVOT Peak Gradient 2 mmHg PV Doppler PV Peak Gradient 5 mmHg Mitral Valve Name Value Normal MV Doppler MV Decel [place] 588 cm/s2 MV PHT 41 ms MV Area (PHT) 5.3 cm2 4.0-5.0 MV Regurgitation Doppler MR Peak Gradient 131 mmHg MV Diastolic Function MV E Peak Velocity 84 cm/s MV A Peak Velocity 102 cm/s MV E/A 0.8 MV Decel Time 143 ms MV Annular TDI MV E/e' (Septal) 18.3 <=8.0 MV E/e' (Lateral) 9.3 <=8.0 MV E/e' (Average) 13.8 Tricuspid Valve Name Value Normal TV Regurgitation Doppler TR Peak Velocity 257 cm/s TR Peak Gradient 26 mmHg Estimated PAP/RSVP RA Pressure 5 mmHg <=5 PA Systolic Pressure 31 mmHg <36 RV Systolic Pressure 31 mmHg <36 Aorta Name Value Normal Ascending Aorta Ao Root Diameter (MM) 2.9 cm Ao Root Diam Index (MM) 1.7 cm/m2 Aortic Valve Name Value Normal AV Doppler AV Peak Velocity 284 cm/s AV Peak Gradient 32 mmHg AV Mean Gradient 17 mmHg AV VTI 62 cm AV Area (Cont Eq VTI) 0.8 cm2 >=3.0 AV Area (Cont Eq Surjit) 0.7 cm2 AV Regurgitation 2D LVOT Area 3.3 cm2 Ventricles Name Value Normal LV Dimensions 2D/MM IVS Diastolic Thickness (2D) 1.0 cm 0.6-1.0 LVID Diastole (2D) 4.4 cm 3.8-5.2 LVIW Diastolic Thickness (2D) 1.0 cm 0.6-0.9 LVID Systole (2D) 3.0 cm 2.2-3.5 LVOT Diameter 2.0 cm LV Mass (2D Cubed) 148.54 g 67.00-162.00 LV Mass Index (2D Cubed) 89 g/m2 43-95 Relative Wall Thickness (2D) 0.45 LV Fractional Shortening/Ejection Fraction 2D/MM LV Fractional Shortening (2D) 31 % 27-45 LV EF (2D Teicholz) 60 % 54-74 LV Diastolic Volume (4C MOD) 40 ml LV EF (4C MOD) 53 % LV Diastolic Volume (2C MOD) 46 ml LV EF (2C MOD) 60 % LV Diastolic Volume (BP MOD) 44 ml 46-106 LV Diastolic Volume Index (BP MOD) 26 ml/m2 29-61 LV Systolic Volume (BP MOD) 19 ml 14-42 LV Systolic Volume Index (BP MOD) 11 ml/m2 8-24 LV EF (BP MOD) 57 % 54-74 LV Diastolic Length (4C) 6.3 cm LV Systolic Length (4C) 5.3 cm LV Stroke Volume (4C MOD) 21 ml Atria Name Value Normal LA Dimensions LA Dimension (MM) 4.0 cm 2.7-3.8 LA Volume (4C A-L) 45 ml LA Volume (BP A-L) 55 ml RA Dimensions RA Area (4C) 13.7 cm2 <=18.0 Report Signatures
--- OUTSIDE RECORDS SUMMARY | 2024-09-25 12:51 | XMS_ITS | Data Portability ---
Author Organization [facility] OFFICE Address [address] [place] [address] [address] [place] [address] Care Team Providers Care Brim Stiffener Name Role Phone DAYNE MCCORD Primary Care [...] DO Not Attach Compendium, Do Not Delete/merge, [id number] 05:00:53 Medication Orders hydrocodon e 7.5 mg-acetami nophen 300 mg tablet 2017 018 [facility] [employer] [id number], [address], [place], [id number], 9 15:25:39 cyclobenza balwinder 10 mg tablet 2017 018 [id number] [address], [place], [id number], 8 15:54:30 hydrocodon e 7.5 mg-acetami nophen 325 mg tablet 2017 018 [facility] [employer] [id number], [address], [place], [id number], 8 15:54:25 Patient TargetsNo targets recorded. Patient Instructions Encounter Date Encounter Id Patient Instructions Last Modified By Organization Details Last Modified Time 10/16/2017 [id number] back care and preventing injuries: care instructions plindy Not available 10/16/2017 15:54:25 getting back to normal after low back pain: care instructions plindy Not available 10/16/2017 15:54:25 learning about relief for back pain plindy Not available 10/16/2017 15:54:25 The patient will start a course of medications and return in 1 month for follow up with xrays. 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 Procedures Surgical History Date Name Laterality Status Provider Name and Address Organization Details Recorded Time 3 Plastic Surgery completed Emma Shepherd [facility] 10/16/2017 11:18:59 Other completed Emma Shepherd [facility] 10/16/2017 11:18:59 Imaging Results [...] Updated DateTime 10/16/2017 172.72 cm 20.5 kg/m2 88202.97 alejandro Emma VELÁZQUEZ [facility] 10/16/2017 11:18:36 Date Recorded Body height Body mass index (BMI) Body weight Provider Name and Address Organization Details Last Updated DateTime 11/12/2017 172.72 cm 20.5 kg/m2 40551.97 alejandro Emma VELÁZQUEZ [facility] 11/12/2017 14:07:44 Date Recorded Body height Body mass index (BMI) Body weight Provider Name and Address Organization Details Last Updated DateTime 01/14/2019 172.72 cm 20.5 kg/m2 32348.97 alejandro VELÁZQUEZ [facility] 01/14/2019 11:55:02 Social History Question Answer Notes LastModified by Organizat ion Details LastModified Time Tobacco Smoking Status Current Some Day Smoker Emma espino [facility] 10/16/2017 11:18:53 What Is [...] N Goiter N Anemia N Heart Attack ([place]) N Ulcers N A Trick Joint N [...] SNOMED-CT Code Diagnosis ICD10 Code Diagnosis Note [id number] Elijah Santamaria MD [facility] [address] [place] [address], [address] [place] [address] 10/16/2017 10:53:57 10/16/2017 11:41:44 Low back pain 853138627 M54.5 Pathologic al fracture of vertebra 594760495 M48.56XA [id number] Elijah Santamaria MD [facility] [address] [place] [address], [address] [place] [address] 11/12/2017 13:31:30 11/12/2017 14:45:19 Low back pain 873370959 M54.5 Pathologic al fracture of vertebra 485214208 M48.56XD [id number] Ledy Gong [facility] [address], [address] [address] 01/19/2019 11:50:55 01/19/2019 11:59:04 [id number] Ledy Gong [facility] [address], [address] [address] 01/26/2019 12:15:17 01/26/2019 12:16:31 Health Concerns Section Related Observation LastModified by Organization Detai ls LastModified Time None Recorded Concern Status LastModified by Organization Details LastModified Time None Recorded Advance Directives Directive None Recorded Payers Encounter Date Sequence Insurance Name Policy Number Policy Choi Covered Member ID Choi Member ID Guarantor Name 10/16/2017 1 [place] Yuliya J Harris [id number] Yuliya Harris 10/16/2017 [facility] (MEDICARE [facility]ME [facility]) Yuliya J Harris [id number] Yuliya Harris 11/12/2017 1 [place] Yuliya J Harris [id number] Yuliya Harris 11/12/2017 [employer] (MEDICARE [employer] [place]) Yuliya J Harris [id number] Yuliya Harris 01/19/2019 1 [place] Yuliya J Harris [id number] Yuliya Harris 01/19/2019 2 [employer] (MEDICARE SUPPLEMENT) Yuliya J Harris [id number] Yuliya Harris 01/26/2019 1 [place] Yuliya J Harris [id number] Yuliya Harris 01/26/2019 2 [employer] (MEDICARE SUPPLEMENT) Yuliya J Harris [id number] Yuliya Harris Notes Date Note Type Note [...] appears within normal limits. Elijah Santamaria MD [address] [place] [address], [address], [address], [facility] 04/23/2018 16:34:29 11/12/2017 text/html Follow-UpReporte d bypatient.Are you working?not at all How are you feeling?same (LBP) Previous PT:none Previous Injections:none Change in symptoms:no Do you need a work excuse?no Do you need a prescription renewal?no Elijah Santamaria MD [address] [place] [address], [address], [address], [facility] 09/08/2018 15:25:44 OBGyn Episode No OBEpisode recorded.
--- OUTSIDE RECORDS SUMMARY | 2024-09-25 12:51 | XMS_ITS | Data Portability ---
Author Organization [facility] Address [address] [place] [address] Care Team Providers Care Faculty Dean Name Role Phone BELIA HAIRSTON Primary Care [...] Not available Not available Not available Lab vitamin B12 + folate, serum or blood 2024 025 [facility], [address], [place], [address], 09/25/2024 04:16:08 hepatic function panel, serum 2024 025 [facility], [address], [place], [address], 09/25/2024 04:16:07 BMP, serum or plasma 2024 025 [facility], [address], [place], [address], 09/25/2024 04:16:07 CBC w/ auto diff 2024 025 [facility], [address], [place], [address], 09/25/2024 04:16:07 lipid panel, serum 2024 025 [facility], [address], [place], [address], 09/25/2024 04:16:08 hepatic function panel, serum 2023 024 [facility], [address], [place], [address], 02/25/2024 12:07:25 BMP, serum or plasma 2023 024 [facility], [address], [place], [address], 02/25/2024 12:07:39 CBC w/ auto diff 2023 024 [facility], [address], [place], [address], 02/25/2024 12:07:43 TSH + free T4, serum 2023 024 [facility], [address], [place], [address], 02/25/2024 07:40:37 vitamin B12 + folate, serum or blood 2023 024 [facility], [address], [place], [address], 02/25/2024 12:07:54 lipid panel, serum 2023 024 [facility], [address], [place], [address], 02/25/2024 07:40:37 Referral pain managemen t referral - PCP ordering MRI lumbar spine to have prior to pain med visit. 2024 025 catia Naire[facility]uer, [address], [place], [address], 09/25/2024 08:38:44 Procedures None recorded. Surgeries None recorded. Imaging MRI, lumbar spine, w/o contrast 2024 025 [facility], [address], [place], [address], 09/16/2024 16:37:58 LDCT, chest, for lung cancer screening 2024 025 [facility] [address], [place], [address], 08/25/2024 18:19:57 MRI, brain, w/wo contrast 2024 025 [facility], [address], [place], [address], 09/05/2024 09:52:04 US, duplex, carotid artery 2024 025 [facility]), [address] [place] [address], [place], [address], 09/04/2024 19:01:06 US, echocardi ogram, transthor acic, complete, w/ color flow 2024 025 [facility]), [address] [place] [address] [place] [address], [address], 09/23/2024 04:13:21 Medication Orders sertralin e 50 mg tablet 2023 025 [facility], [address] , [place], [place], [id number], 08/14/2024 12:05:13 amlodipin e 5 mg tablet 2023 024 [facility], [address] [facility], [place], [place], [id number], 08/14/2024 12:04:29 rosuvasta tin 5 mg tablet 2023 024 [facility], [address] [facility], [place], [place], [id number], 08/14/2024 12:04:35 Patient TargetsNo targets recorded. Patient [...] 3 view No observ ation record ed. [address] [facility], [place], [address], 08/30/2024 16:51:19 08/25/1908/25/2024 LDCT, chest , for lung cance r scree khai No observ ation record ed. [address] [address], [place], [address], 08/26/2024 16:04:26 09/05/19 25 09/04/2024 US, viki x, edwin id arter y No observ ation record ed. [address] [facility], [place], [address], 09/22/2024 12:12:52 09/06/19 25 09/04/2024 MRI, brain , w/wo contr ast No observ ation record ed. [address] [address], [place], [address], 09/20/2024 12:02:59 09/17/19 25 09/04/2024 MRI, lumba r spine , w/o contr ast No observ ation record ed. [facility] [address], [place], [address], 09/22/2024 12:12:52 Result Notes None recorded. Problems Name Problem SNOMED Code Status Onset Date Resolution Date Notes Provider Name and Address Organization Details Recorded Time Hyperlipidemia 78318731 Active 2023 Viviana Vallecilloman null, [place] - [facility] 4 16:18:43 Smoker 18372610 Active 2023 Viviana Du[place] [facility] 4 16:18:51 Benign essential hypertension 4251218 Active 2023 Viviana Du[place] [facility] 4 16:18:59 Heart murmur 95919238 Active 2023 Viviana [place] [facility] 4 16:19:07 Long-term drug therapy Active 2023 CORRY Ahumada Attn: Kaleigh allen,[address] [place], [address], [place] - [facility] 4 23:32:44 Depressive disorder 82362746 Active 2023 CORRY Ahumada Attn: Kaleigh allen,[address] [place], [address], [place] [facility] 4 23:32:54 Body mass index less than 20 759195028 Active 2023 CORRY Ahumada Attn: Kaleigh allen,[address] [place], [address], [place] [facility] 4 23:33:23 Dizziness 504267463 Active 2024 CORRY Ahumada Attn: Kaleigh allen,[address] [place], [address], [place] [facility] 5 12:31:12 Compression fracture of lumbar spine 853683316 Active 2024 CORRY Ahumada Attn: Kaleigh allen,[address] [facility] [address], [place], [address], [place] - SI 12:31:14 Carotid bruit 698171989 Active 2024 CORRY Ahumada Attn: Kaleigh allen,[address], [place], [address], [place] - [facility] 16:55:37 Problem Notes None recorded. Procedures Surgical History Date Name Laterality Status Provider Name and Address Organization Details Recorded Time section completed [facility] 09/02/2023 16:20:55 Appendectomy completed [facility] 09/02/2023 16:21:02 Imaging Results Imaging Date Name Status LastModified by Organiz ation Details LastModified Time 08/07/2024 XR, lumbosacral spine, 2 or 3 view [address], [address], 08/30/2024 16:51:19 08/25/2024 LDCT, chest, for lung cancer screening completed [address], [address], 08/26/2024 16:04:26 09/04/2024 US, duplex, carotid artery completed [address], [address], 09/22/2024 12:12:52 09/04/2024 MRI, brain, w/wo contrast completed [address], [address], 09/20/2024 12:02:59 09/04/2024 MRI, lumbar spine, w/o contrast completed [address], [address], 09/22/2024 12:12:52 Procedure Notes None recorded. Medical Equipment None [...] Updated DateTime 4 170.18 cm 18.8 kg/m2 33655.0 8 g 78 /min 99 % 99 % 142 mm[Hg] 68 mm[Hg] Meenakshi Childs MA [facility] 4 15:54:00 Date Recorded Respiratory rate Systolic blood pressure Diastolic blood pressure Provider Name and Address Organization Details Last Updated DateTime 02/14/2024 18 /min 134 mm[Hg] 80 mm[Hg] CORRY Ahumada Attn: Accounting, [address] [place], [address], [facility] 02/14/2024 16:11:49 Date Recorded Body height Body mass index (BMI) Body weight Oxygen saturation Oxygen saturation in Arterial blood by Pulse oximetry Heart rate Provider Name and Address Organization Details Last Updated DateTime 5 170.18 cm 19.6 kg/m2 27195.0 5 g 98 % 98 % 62 /min Duglas Salazar MA [facility] 5 12:10:07 Date Recorded Respiratory rate Systolic blood pressure Diastolic blood pressure Provider Name and Address Organization Details Last Updated DateTime 08/14/2024 16 /min 138 mm[Hg] 80 mm[Hg] CORRY Ahumada Attn: Accounting, [address] [place], [address], [facility] 08/14/2024 12:44:07 Social History Question Answer Notes LastModified by Organizat ion Details LastModified Time Tobacco Smoking Status Current Every Day Smoker Viviana Duenas null, [place] - [facility] 09/02/2023 16:20:20 Do You Have An Advance Directive? Yes Daughter Information not available 08/14/2024 What Is Your Level Of Alcohol Consumption? None [email or web address] Information not available 09/02/2023 Are You Blind Or Do You Have Difficulty Seeing? Yes Glasses Information not available 08/14/2024 What Is Your Level Of Caffeine Consumption? Moderate [email or web address] Information not available 09/02/2023 In The 14 Days Before Symptom Onset, Have You Had Close Contact With A Laboratory-confir med COVID-19 While That Case Was Ill? No [email or web address] Information not available 09/02/2023 In The 14 Days Before Symptom Onset, Have You Had Close Contact With A Person Who Is Under Investigation For COVID-19 While That Person Was Ill? No [email or web address] Information not available 09/02/2023 Have You Been To An Area Known To Be High Risk For COVID-19? No [email or web address] Information not available 09/02/2023 Are You Currently Employed? No [email or web address] Information not available 09/02/2023 Are You Deaf Or Do You Have Serious Difficulty Hearing? No Information not available 08/14/2024 What Type Of Diet Are You Following? REGULAR [email or web address] Information not available 09/02/2023 Are There Any Guns Present In Your Home? No Information not available 08/14/2024 What Was The Date Of Your Most Recent Tobacco Screening? 08/14/2024 Information not available 08/14/2024 What Is Your Current Pack Years? 30ormorepack years [email or web address] Information not available 09/02/2023 What Is Your Relationship Status? [email or web address] Information not available 09/02/2023 Do You Use Your Seat Belt Or Car Seat Routinely? Yes Information not available 09/02/2023 Do You Have Smoke And Carbon Monoxide Detectors In Your Home? Yes [email or web address] Information not available 09/02/2023 At What Age Did You Start Smoking Tobacco? 14 [email or web address] Information not available 09/02/2023 How Much Tobacco Do You Smoke? 0.5 PPD 1/2 Pack - 1 Pack Information not available 08/14/2024 Do You Use Any Illicit Or Recreational Drugs? No [email or web address] Information not available 09/02/2023 Do You Use Sunscreen Routinely? Yes [email or web address] Information not available 09/02/2023 Has Tobacco Cessation Counseling Been Provided? No Information not available 02/14/2024 How Many Years Have You Smoked Tobacco? 50 Information not available 02/14/2024 Do You Or Have You Ever Used Any Other Forms Of Tobacco Or Nicotine? No [email or web address] Information not available 09/02/2023 Sex: Female Functional Status Question Answer Note LastModified by Organization D etails LastModified Time Are you able to care for yourself? Yes Information n ot available 08/14/2024 What is your exercise level? None [email or web address] Information not available 09/02/2023 Mental Status None [...] SNOMED-CT Code Diagnosis ICD10 Code Diagnosis Note [id number] CORRY Ahumada [facility] [employer] [address] [place] [address] 02/14/2024 15:45:11 02/14/2024 16:23:15 Benign essential hypertension 9495656 I10 Refill amlodipine 5 mg daily Hyperlipidemia 61120623 E78.5 Refill rosuvastat in 5 mg daily and check fasting lipid panel Long-term drug therapy 413738586 Z79.899 CBC, BMP, LFT, thyroid panel and vitamin B12 and folate labs are due Depressive disorder 0888 9007 F32.A Refill on sertraline 50 mg daily. Depression is controlled per patient report Smoker 74488709 F17.200 pt is down to 2-3 packs per week. Body mass index less than 20 338132859 Z68.1 BMI is 18.8 [id number] CORRY Ahumada [facility] [address] [place] [address] 08/14/2024 11:59:37 08/14/2024 13:19:11 Body mass index less than 20 521948487 Z68.1 BMI is 19.6 Benign ess ential hypertension 9876155 I10 Stable on amlodipine 5 mg daily. 138/80 today Hyperlipidemia 54957177 E78.5 rosuvastat in 5 mg daily and check fasting lipid panel Depressive disorder 3548 9007 F32.A on sertraline 50 mg daily. Depression is controlled per patient report Long-term drug therapy 210477728 Z79.899 CBC, BMP and liver panel due Smoker 09447933 F17.210 pt is down to 2-3 packs per week. Patient does agree to a low-dose CT scan of the chest that can be done annually with Medicare recommenda tions Compressio n fracture of lumbar spine 558331893 M48.56XA Send for MRI of the lumbar spine without contrast to better evaluate the compressio n fracture in the lumbar spine noted on plain film. Also refer her to pain management for her options. Question kyphoplast y versus vertebropl asty depending on age of compressio n fracture Dizziness 016320065 R42 Refer for MRI brain with and without contrast with reported dizziness more often in recent months Poor short -term memory 786170160 R41.3 Along with poor short-term memory the MRI of the brain is needed as well as vitamin B12 and folate labs Heart murmur 83464095 R0 1.1 Heart murmur noted in the past and has been evaluated previously . Will refer for baseline echo Doppler follow-up Carotid bruit 462855203 R09.89 For carotid bruit evaluation will send for carotid artery duplex bilaterall y Health Concerns Section Related Observation LastModified by Organization Detai ls LastModified Time None Recorded Concern Status LastModified by Organization Details LastModified Time None Recorded Advance Directives Directive Y: Daughter Payers Encounter Date Sequence Insurance Name Policy Number Policy Choi Covered Member ID Choi Member ID Guarantor Name 02/14/2024 1 [facility] (MEDICARE REPLACEMENT/A DVANTAGE - PPO) [id number] Yuliya Harris [id number] Yuliya Harris 08/14/2024 1 [facility] (MEDICARE REPLACEMENT/A DVANTAGE - PPO) [id number] Yuliya Harris [id number] Yuliya Harris Notes Date Note Type Note Provider Name and Address Organization Details Recorded Time 024 text/ht ml Anxiety/DepressionReported bypatient.Notes:Patient is taking sertraline 50 mg daily for depressionHyperlipidemiaReported bypatient.Notes:Patient is taking rosuvastatin 5 mg daily and is due for labsHypertensionReported bypatient.Notes:Patient is taking amlodipine 5 mg daily Patient does continue to still smoke cigarettes CORRY Ahumada Attn: Accounting, [address] [facility] [address], [place], [address], [facility] 02/29/2024 23:33:42 025 text/ht ml Anxiety/DepressionReported bypatient.Notes:Patient [...] smoke cigarettes CORRY Ahumada Attn: Accounting, [address] [facility] [address], [place], [address], [facility] 08/30/2024 16:55:57 OBGyn Episode No OBEpisode recorded.
[2024-09-25 13:03] LABS: Basophils Absolute Auto 0.1 K/mm3 (0.0-0.1); Basophils Percent Auto 0.9 % (0.2-1.2); Eosinophils Absolute Auto 0.1 K/mm3 (0-0.3); Eosinophils Percent Auto 0.8 % (0-4.4); Hematocrit 42.1 % (37.0-47.0); Hemoglobin 13.9 g/dL (12.0-15.0); Immature Granulocyte Absolute 0.02 K/mm3 (0.00-0.031); Immature Granulocyte Percent A 0.3 % (0-0.5); Lymphocytes Absolute Auto 1.28 K/mm3 (0.9-3.2); Lymphocytes Percent Auto 20.1 % (18.3-44.2); Mean Corpuscular Hemoglobin 32.6 pg (26-34); Mean Corpuscular Volume 98.8 fl (80-100); Monocytes Absolute Auto 0.6 K/mm3 (0.1-0.6); Monocytes Percent Auto 9.3 % (2.6-8.5); Neutrophils Absolute Auto 4.4 K/mm3 (1.3-6.7); Neutrophils Percent Auto 68.6 % (45.5-73.1); Platelet Count Result 163 k/mm3 (150-375); Red Blood Count 4.26 M/mm3 (4.2-5.4); Red Cell Distribution Width 13.2 % (11.5-14.5); White Blood Count 6.4 K/mm3 (4.5-10.0)
[2024-09-25 13:16] LABS: Alanine Aminotransferase 12 U/L (6-35); Albumin Level 4.4 g/dL (3.5-5.1); Alkaline Phosphatase 48 U/L (38-126); Anion Gap 9 mmol/L (4-12); Aspartate Amino Transferase 19 U/L (14-36); Bilirubin,Total 0.6 mg/dL (0.2-1.3); Blood Urea Nitrogen 15 mg/dL (7-17); Calcium 9.5 mg/dL (8.4-10.2); Carbon Dioxide 27 mmol/L (22-30); Chloride 101 mmol/L (98-107); Cholesterol 128 mg/dL (0-200); Estimated Glomerular Filt Rate > 60; Glucose 93 mg/dL (65-110); HDL Direct 56 mg/dL; Potassium 4.2 mmol/L (3.4-5.0); Sodium 137 mmol/L (137-145); Triglycerides 93 mg/dL (<150)
[2024-09-25 13:27] LABS: LDL Cholesterol Direct 52 mg/dL
[2024-09-25 15:07] LABS: Folic Acid > 20.0 ng/mL (2.76->20)
== END 2024-09-25 12:23 | disposition home or self-care (01) ==
PROVIDERS: PCP Physician Assistant; Visit Provider Physician Assistant
DX: R41.3 Other amnesia (principal); E78.5 Hyperlipidemia, unspecified; Z79.899 Other long term (current) drug therapy; R01.1 Cardiac murmur, unspecified
CPT/HCPCS: 36415; 80048; 80061; 80076; 82607; 82746; 85025; 93306

== ENCOUNTER 2025-06-02 09:47 | Outpatient (CLI) | payer MEDICARE, SELFPAY ==
--- NOTE | ~2025-06-02 | US_ITS ---
EXAMINATION:US venous doppler LE RT INDICATION:Right lower extremity swelling TECHNIQUE: Multiple grayscale, color flow and Doppler images of the right lower extremity deep venous systems were obtained and reviewed. COMPARISON:No prior studies for comparison. FINDINGS: The common femoral, superficial femoral and popliteal veins demonstrate normal respiratory variation, augmentation and compressibility. Color flow is also seen within the posterior tibial, peroneal, greater saphenous and profunda veins. IMPRESSION: 1: No lower extremity deep venous thrombosis. Reviewed, dictated and finalized at location I. [facility]
[2025-06-02 10:21] LABS: Hematocrit 41.1 % (37.0-47.0); Hemoglobin 13.5 g/dL (12.0-15.0); Immature Granulocyte Percent A 0.5 % (0-0.5); Lymphocytes Absolute Auto 1.32 K/mm3 (0.9-3.2); Mean Corpuscular HGB Conc 32.8 g/dl (32-36); Mean Corpuscular Hemoglobin 32.3 pg (26-34); Mean Corpuscular Volume 98.3 fl (80-100); Nucleated Red Blood Cells Absolute Auto 0.000 K/mm3 (0.0-0.012); Nucleated Red Blood Cells Perc 0.0 % (0.0-0.2); Platelet Count Result 172 k/mm3 (150-375); Red Blood Count 4.18 M/mm3 (4.2-5.4); White Blood Count 5.8 K/mm3 (4.5-10.0)
[2025-06-02 10:52] LABS: Alanine Aminotransferase 10 U/L (6-35); Albumin Level 4.0 g/dL (3.5-5.1); Alkaline Phosphatase 54 U/L (38-126); Anion Gap 2 mmol/L (4-12); Aspartate Amino Transferase 22 U/L (14-36); Bilirubin,Total 0.6 mg/dL (0.2-1.3); Blood Urea Nitrogen 15 mg/dL (7-17); Calcium 9.1 mg/dL (8.4-10.2); Carbon Dioxide 31 mmol/L (22-30); Chloride 103 mmol/L (98-107); Cholesterol 130 mg/dL (0-200); Estimated Glomerular Filt Rate > 60; Glucose 92 mg/dL (65-110); HDL Direct 54 mg/dL; Potassium 3.6 mmol/L (3.4-5.0); Sodium 136 mmol/L (137-145); Total Protein 6.8 g/dL (6.3-8.2); Triglycerides 107 mg/dL (<150)
[2025-06-02 11:22] LABS: Thyroid Stimulating Hormone Reflex 1.880 uIU/mL (0.465-4.68)
[2025-06-02 12:03] LABS: Vitamin B12 547.0 pg/mL (239-931)
== END 2025-06-02 09:48 | disposition home or self-care (01) ==
LOC: ANHIMG 09:50
PROVIDERS: PCP Physician Assistant; Visit Provider Physician Assistant
DX: E78.5 Hyperlipidemia, unspecified (principal); I10 Essential (primary) hypertension; R41.3 Other amnesia; M79.89 Other specified soft tissue disorders; Z79.899 Other long term (current) drug therapy
CPT/HCPCS: 36415; 80048; 80061; 80076; 82607; 82746; 84443; 85025; 93971